=== PATIENT | male | born 1945 ===

== ENCOUNTER 2018-05-22 03:24 | Inpatient (IN) | payer MEDICARE, MEDICAID ==
[2018-05-22 03:24] VITALS: BMI 29.2
--- NOTE | 2018-05-22 05:16 | ED PDOC ---
HPI: SOB/CHF/COPD Time Seen by Provider: 05/22/18 03:59 Chief Complaint (Nursing): Shortness Of Breath Chief Complaint (Provider): Shortness of breath History Per: Patient, Informatics Pharmacist (Becky # [id number]) History/Exam Limitations: no limitations Onset/Duration Of Symptoms: Days Current Symptoms Are (Timing): Still Present Exacerbating Factor(s): Exertion Associated Symptoms: Ankle/Leg Swelling Additional History Per: Patient Additional Complaint(s): 72yo male, with history of hypertension, comes to ER reporting shortness of breath. Patient states shortness of breath is exacerbated if he walks distances. He also reports abdominal swelling as well as lower extremity swelling. He otherwise denies any fever, chills, chest pain, vomiting or diarrhea. No additional complaints. PMD: Dr. Perez Past Medical History Reviewed: Historical Data, Nursing Documentation, Vital Signs Vital Signs: Last Vital Signs Temp 97.8 F 05/22/18 03:38 Pulse 86 05/22/18 03:38 Resp 17 05/22/18 03:38 BP 213/93 H 05/22/18 03:38 Pulse Ox 98 05/22/18 03:38 - Medical History PMH: Arthritis, CAD, HTN, Hypercholesterolemia - Surgical History Surgical History: No Surg Hx - Family History Family History: States: No Known Family Hx - Living Arrangements Living Arrangements: With Family - Social History Current smoker - smoking cessation education provided: No Alcohol: None Drugs: Denies - Immunization History Hx Tetanus Toxoid Vaccination: Yes (11/05/2012) Hx Influenza Vaccination: No Hx Pneumococcal Vaccination: No - Home Medications Home Medications: Ambulatory Orders Medication Instructions Recorded Losartan/Hydrochlorothiazide 1 tab PO DAILY 02/27/13 [Losartan Potassium-Hydrochlorothiazide 12.5 M] Carvedilol [Coreg] 6.25 mg PO BID 08/16/15 RX: Diclofenac Sodium 75 mg PO BID 08/16/15 RX: traMADol [Ultram] 50 mg PO Q8 #20 tab 04/22/18 Apixaban [Eliquis] 5 mg PO DAILY 05/22/18 Zolpidem Tartrate [Ambien] 10 mg PO HS 05/22/18 - Allergies Allergies/Adverse Reactions: Allergies Allergy/AdvReac Type Severity Reaction Status Date / Time No Known Allergies Allergy Verified 05/22/18 03:39 Review of Systems ROS Statement: Except As Marked, All Systems Reviewed And Found Negative (per HPI) Constitutional: Negative for: Fever, Chills Cardiovascular: Positive for: Edema. Negative for: Chest Pain Respiratory: Positive for: Shortness of Breath, SOB with Exertion Gastrointestinal: Negative for: Nausea, Vomiting Physical Exam - Reviewed Nursing Documentation Reviewed: Yes Vital Signs Reviewed: Yes - Physical Exam Appears: Positive for: Non-toxic Head Exam: Positive for: ATRAUMATIC, NORMAL INSPECTION, NORMOCEPHALIC Skin: Positive for: Normal Color Eye Exam: Positive for: Normal appearance Neck: Positive for: Supple Cardiovascular/Chest: Positive for: Regular Rate, Rhythm Respiratory: Positive for: Normal Breath Sounds. Negative for: Crackles, Rales, Rhonchi, Wheezing, Respiratory Distress Gastrointestinal/Abdominal: Positive for: Soft, Distended. Negative for: Tenderness Extremity: Positive for: Normal ROM, Pedal Edema (1+ pitting pedal edema amita aterally) Neurologic/Psych: Positive for: Alert, Oriented. Negative for: Motor/Sensory Deficits - Laboratory Results Result Diagrams: 05/22/18 05:56 05/22/18 05:56 - ECG ECG: Positive for: Interpreted By Me, Viewed By Me ECG Rhythm: Positive for: Sinus Rhythm. Negative for: ST/T Changes Rate: 88 O2 Sat by Pulse Oximetry: 98 (RA) Pulse Ox Interpretation: Normal Medical Decision Making Medical Decision Making: Impression: 72yo male with shortness of breath, r/o CHF Plan: -- Lasix 20mg IVP -- Labs -- Chest x-ray -- Urinalysis 0630 Chest x-ray reviewed, patient with right middle lobe peribronchial thickening [place] [address]. Troponin level negative. Hemoglobin level noted to be low at 6.0; Shortness of breath could be due to symptomatic anemia Patient noted to have worsening renal failure as well. [address] Bedolla, covering for Dr. Perez, and he accepts patient for admission due to CHF and possible GI bleed. Patient admitted to telemetry. Per Dr. Bedolla, Dr. García to be consulted for GI and Dr. Flores for cardiology. Guiac stool test ordered. Lasix 40mg IVP ordered. Patient consents to blood transfusion; written consent obtained. Lab results and plan for admission discussed with patient, who expresses understanding and is agreeable. Scribe Attestation: Documented by Jannette Somers, acting as a scribe for Mikayla Casas MD. Provider Scribe Attestation: All medical record entries made by the Scribe were at my direction and personally dictated by me. I have reviewed the chart and agree that the record accurately reflects my personal performance of the history, physical exam, medical decision making, and the department course for this patient. I have also personally directed, reviewed, and agree with the discharge instructions and disposition. Disposition - Clinical Impression Clinical Impression: Renal failure, Symptomatic anemia - Patient ED Disposition Is Patient to be Admitted: Yes Counseled Patient/Family Regarding: Studies Performed, Diagnosis - Disposition Disposition Time: 06:55 Condition: FAIR
[2018-05-22 05:59] LABS: BASO # 0.1 K/uL (0.0-0.2); BASO % 0.9 % (0.0-2.0); EOS # 0.2 K/uL (0.0-0.7); LYMPH # 1.4 K/uL (1.0-4.3); LYMPH % 17.5 % (20.0-40.0); MEAN CELL VOLUME 90.7 fl (80.0-94.0); MEAN CORPUSCULAR HGB CONC 29.7 g/dL (33.0-37.0); MEAN PLATELET VOLUME 9.7 fl (7.2-11.7); MONO # 0.7 K/uL (0.0-0.8); MONO % 8.4 % (0.0-10.0); NEUT # 5.8 K/uL (1.8-7.0); NEUT % 71.2 % (50.0-75.0); NRBC % 0.1 % (0.0-0.0); RBC 2.24 Mil/uL (4.40-5.90); RED CELL DISTRIBUTION WIDTH 20.5 % (11.5-14.5); WHITE BLOOD COUNT 8.1 K/uL (4.8-10.8)
[2018-05-22 06:14] LABS: ALB/GLOB RATIO 1.2 (1.0-2.1); ALBUMIN 3.4 g/dL (3.5-5.0); CALCIUM 8.4 mg/dL (8.4-10.2)
[2018-05-22 06:26] LABS: TROPONIN I 0.03 ng/mL (0.00-0.120)
[2018-05-22 07:36] LABS: SQUAMOUS EPITHIAL < 1 /hpf (0-5); URINE BACTERIA RARE (<OCC); URINE BILIRUBIN NEGATIVE (NEGATIVE); URINE BLOOD NEGATIVE (NEGATIVE); URINE CLARITY CLEAR (Clear); URINE COLOR STRAW (YELLOW); URINE GLUCOSE (UA) NEG (NEGATIVE); URINE LEUKOCYTE ESTERASE NEG Leu/uL (Negative); URINE PROTEIN NEGATIVE (NEGATIVE); URINE UROBILINOGEN 0.2-1.0 mg/dL (0.2-1.0)
--- NOTE | 2018-05-22 07:59 | RAD ---
Date of service: 05/22/2018 HISTORY: chf COMPARISON: No prior. FINDINGS: LUNGS: No active pulmonary disease. PLEURA: No significant pleural effusion identified, no pneumothorax apparent. CARDIOVASCULAR: There is presence of aortic atherosclerotic calcification on x-ray. Mild cardiomegaly. Mild pulmonary venous congestion OSSEOUS STRUCTURES: Thoracic spondylosis. VISUALIZED UPPER ABDOMEN: Normal. OTHER FINDINGS: None. IMPRESSION: Mild cardiomegaly. Mild pulmonary venous congestion .
--- NOTE | 2018-05-22 19:19 | CP.PCM.CON ---
History of Present Illness - History of Present Illness History of Present Illness: I was asked to evaluate patient by Dr Stout Patient seen 05/22/18 1700 Patient is a 72 year old male with HTN, hypercholesterolemia who presents with weakness. Symptoms have occurred for the last few days and he has become increasingly more fatigued. He was found to be severely anemic. He denies chest pain. Of note the patient had a previous stress test in June revealing normal myocardial perfusion and normal left ventricular function. Review of Systems - Constitutional Constitutional: Fatigue, Weakness - EENT Eyes: absent: As Per HPI, Blind Spots, Blurred Vision, Change in Vision, Decreased Night Vision, Diplopia, Discharge, Dry Eye, Exophthalmos, Floaters, Irritation, Itchy Eyes, Loss of Peripheral Vision, Pain, Photophobia, Requires Corrective Lenses, Sees Flashes, Spots in Vision, Tunnel Vision, Other Visual Disturbances, Loss of Vision, Other Ears: absent: As Per HPI, Decreased Hearing, Ear Discharge, Ear Pain, Tinnitus, Abnormal Hearing, Disequilibrium, Dizziness, Other Nose/Mouth/Throat: absent: As Per HPI, Epistaxis, Nasal Congestion, Nasal Disc harge, Nasal Obstruction, Nasal Trauma, Nose Pain, Post Nasal Drip, Sinus Pain, Sinus Pressure, Bleeding Gums, Change in Voice, Dental Pain, Dry Mouth, Dysphagia, Halitosis, Hoarsness, Lip Swelling, Mouth Lesions, Mouth Pain, Odynophagia, Sore Throat, Throat Swelling, Tongue Swelling, Facial Pain, Neck Pain, Neck Mass, Other - Cardiovascular Cardiovascular: absent: As Per HPI, Acrocyanosis, Chest Pain, Chest Pain at Rest, Chest Pain with Activity, Claudication, Diaphoresis, Dyspnea, Dyspnea on Exertion, Edema, Irregular Heart Rhythm, Pain Radiating to Arm/Neck/Jaw, Leg Edema, Leg Ulcers, Lightheadedness, Orthopnea, Palpitations, Paroxysmal Nocturnal Dyspnea, Pedal Edema, Radiating Pain, Rapid Heart Rate, Slow Heart Rate, Syncope, Other - Respiratory Respiratory: absent: As Per HPI, Cough, Dyspnea, Hemoptysis, Dyspnea on Exertion, Wheezing, Snoring, Stridor, Pain on Inspiration, Chest Congestion, Excessive Mucous Production, Change in Mucous Color, Pain with Coughing, Other - Gastrointestinal Gastrointestinal: Change in Bowel Habits, Constipation - Genitourinary Genitourinary: Urinary Hesitance - Musculoskeletal Musculoskeletal: absent: As Per HPI, Abnormal Gait, Arthralgias, Atrophy, Back Pain, Deformity, Joint Swelling, Limited Range of Motion, Loss of Height, Muscle Cramps, Muscle Weakness, Myalgias, Neck Pain, Numbness, Radiating Pain into Limb, Stiffness, Tingling, Other - Integumentary Integumentary: absent: As Per HPI, Acne, Alopecia, Bleeding Lesions, Change in Hair, Change in Nails, Change in Pigmentation, Changing Lesions, Dry Skin, Erythema, Furuncle, Hirsutism, Lesions, New Lesions, Non-Healing Lesions, Photosensitivity, Pruritus, Rash, Skin Pain, Skin Ulcer, Sores, Striae, Swelling, Unusual Bruising, Wounds, Jaundice, Other - Neurological Neurological: absent: As Per HPI, Abnormal Gait, Abnormal Hearing, Abnormal Movements, Abnormal Speech, Behavioral Changes, Burning Sensations, Confusion, Convulsions, Disequilibrium, Dizziness, Numbness, Focal Weakness, Frequent Falls, Headaches, Lack of Coordination, Loss of Vision, Memory Loss, Paresthesias, Radicular Pain, Restless Legs, Sensory Deficit, Syncope, Tingling, Tremor, Vertigo, Weakness, Other Visual Disturbances, Other - Psychiatric Psychiatric: absent: As Per HPI, Abnormal Sleep Pattern, Anhedonia, Anxiety, Auditory Hallucinations, Behavioral Changes, Change in Appetite, Change in L ibido, Confusion, Depression, Difficulty Concentrating, Hallucinations, Homicidal Ideation, Hopelessness, Irritability, Memory Loss, Mood Swings, Panic Attacks, Paranoia, Suicidal Ideation, Visual Hallucinations, Tactile Hallucinations, Other - Endocrine Endocrine: absent: As Per HPI, Change in Body Appearance, Change in Libido, Cold Intolorance, Deepening of Voice, Excessive Sweating, Fatigue, Flushing, Heat Intolorance, Increase in Ring/Shoe/Hat Size, Palpitations, Polydipsia, Polyphagia, Polyuria, Other - Hematologic/Lymphatic Hematologic: absent: As Per HPI, Easy Bleeding, Easy Bruising, Lymphadenopathy, Other Past Patient History - Infectious Disease Hx of Infectious Diseases: None - Past Medical History & Family History Past Medical History?: Yes - Past Social History Smoking Status: Former Smoker - CARDIAC Hx Cardiac Disorders: Yes - HEMATOLOGICAL/ONCOLOGICAL Hx Blood Disorders: Yes Hx AIDS: No Hx Human Immunodeficiency Virus (HIV): No - MUSCULOSKELETAL/RHEUMATOLOGICAL Hx Musculoskeletal Disorders: Yes Hx Falls: No - PSYCHIATRIC Hx Substance Use: No - ANESTHESIA Hx Anesthesia: No Meds Allergies/Adverse Reactions: Allergies Allergy/AdvReac Type Severity Reaction Status Date / Time No Known Allergies Allergy Verified 05/22/18 03:39 - Medications Medications: Current Medications Amlodipine Besylate (Norvasc) 10 mg PO DAILY [facility] Last Admin: 05/22/18 14:01 Dose: 10 mg Carvedilol (Coreg) 12.5 mg PO Q12 [facility] Last Admin: 05/22/18 14:00 Dose: 12.5 mg Hydralazine HCl (Apresoline) 25 mg PO BID [facility] Last Admin: 05/22/18 16:33 Dose: 25 mg Physical Exam - Constitutional Appears: Non-toxic - Head Exam Head Exam: NORMAL INSPECTION - Eye Exam Eye Exam: Normal appearance - ENT Exam ENT Exam: Mucous Membranes Moist - Neck Exam Neck exam: Positive for: Full Rom - Respiratory Exam Respiratory Exam: NORMAL BREATHING PATTERN - Cardiovascular Exam Cardiovascular Exam: REGULAR RHYTHM - GI/Abdominal Exam GI & Abdominal Exam: Normal Bowel Sounds - Rectal Exam Rectal Exam: Deferred - Extremities Exam Extremities exam: Positive for: normal inspection. Negative for: pedal edema - Back Exam Back exam: NORMAL INSPECTION - Neurological Exam Neurological exam: Alert, Oriented x3 - Psychiatric Exam Psychiatric exam: Normal Affect - Skin Skin Exam: Normal Color Results - Vital Signs Recent Vital Signs: Last Vital Signs Temp 98.2 F 05/22/18 18:37 Pulse 74 05/22/18 18:37 Resp 18 05/22/18 18:37 BP 164/68 H 05/22/18 18:37 Pulse Ox 100 05/22/18 16:10 - Labs Result Diagrams: 05/22/18 05:56 05/22/18 05:56 Labs: Laboratory Results - last 24 hr 05/22/18 05/22/18 05/22/18 05:56 05:56 07:27 WBC 8.1 RBC 2.24 L Hgb 6.0 L* Hct 20.3 L MCV 90.7 MCH 27.0 MCHC 29.7 L RDW 20.5 H Plt Count 264 MPV 9.7 Neut % (Auto) 71.2 Lymph % (Auto) 17.5 L [place] % (Auto) 8.4 Eos % (Auto) 2.0 Baso % (Auto) 0.9 Neut # (Auto) 5.8 Lymph # (Auto) 1.4 [place] # (Auto) 0.7 Eos # (Auto) 0.2 Baso # (Auto) 0.1 Sodium 144 Potassium 4.2 Chloride 111 H Carbon Dioxide 22 Anion Gap 15 BUN 66 H Creatinine 3.3 H Est GFR ( Amer) 22 Est GFR (Non-Af Amer) 18 Random Glucose 102 Calcium 8.4 Total Bilirubin 0.5 AST 20 ALT 28 Alkaline Phosphatase 204 H Troponin I 0.0300 NT-Pro-B Natriuret Pep 04179 H Total Protein 6.4 Albumin 3.4 L Globulin 2.9 Albumin/Globulin Ratio 1.2 Urine Color Straw Urine Clarity Clear Urine pH 6.0 Ur Specific [place] [employer] 1.009 Urine Protein Negative Urine Glucose (UA) Neg Urine Ketones Negative Urine Blood Negative Urine Nitrate Negative Urine Bilirubin Negative Urine Urobilinogen 0.2-1.0 Ur Leukocyte Esterase Neg Urine RBC (Auto) < 1 Urine Microscopic WBC < 1 Ur Squamous Epith Cells < 1 Urine Bacteria Rare Stool Occult Blood Blood Type Blood Type Confirm Antibody Screen Crossmatch BBK History Checked 05/22/18 05/22/18 05/22/18 07:50 08:54 10:15 WBC RBC Hgb Hct MCV MCH MCHC RDW Plt Count MPV Neut % (Auto) Lymph % (Auto) [place] % (Auto) Eos % (Auto) Baso % (Auto) Neut # (Auto) Lymph # (Auto) [place] # (Auto) Eos # (Auto) Baso # (Auto) Sodium Potassium Chloride Carbon Dioxide Anion Gap BUN Creatinine Est GFR ( Amer) Est GFR (Non-Af Amer) Random Glucose Calcium Total Bilirubin AST ALT Alkaline Phosphatase Troponin I NT-Pro-B Natriuret Pep Total Protein Albumin Globulin Albumin/Globulin Ratio Urine Color Urine Clarity Urine pH Ur Specific [place] [employer] Urine Protein Urine Glucose (UA) Urine Ketones Urine Blood Urine Nitrate Urine Bilirubin Urine Urobilinogen Ur Leukocyte Esterase Urine RBC (Auto) Urine Microscopic WBC Ur Squamous Epith Cells Urine Bacteria Stool Occult Blood Positive H Blood Type A POSITIVE Blood Type Confirm A POSITIVE Antibody Screen Negative Crossmatch See Detail BBK History Checked No verified bt - EKG Data EKG Interpreted by: Myself EKG shows normal: Sinus rhythm Assessment & Plan (1) HTN (hypertension) Assessment and Plan: patient needs improved blood pressure control. can increase betblocker. will hold ARB/AGUSTIN inhibitor given renal insufficiency. Status: Acute
--- NOTE | 2018-05-22 22:39 | CP.PCM.HP ---
History of Present Illness - History of Present Illness History of Present Illness: Courtney david a 72 y/o male admitted for increasing SOB and pallor for the past few weeks. claims that he noted increasing SOb and leg edema 2 weeks ago. At about the same time he had noted frequent episodes of dark colored stools. He did not seek medical attention. Progressively he got worst hence the Er visit. At the Er he was noted to be in CHF with bilateral pitting leg edema, [place] [address] and CXr showing pulm congestion he was also noted to have a hGb of 6.0 BUN 66 nad creatinine of 3.3. has a hx of HTn and hyperlipidemia. recent stress test and ECH in jun 2017 showed a normal stress test and normal EF. Past Patient History - Infectious Disease Hx of Infectious Diseases: None - Past Medical History & Family History Past Medical History?: Yes - Past Social History Smoking Status: Former Smoker - CARDIAC Hx Cardiac Disorders: Yes - HEMATOLOGICAL/ONCOLOGICAL Hx Blood Disorders: Yes Hx AIDS: No Hx Human Immunodeficiency Virus (HIV): No - MUSCULOSKELETAL/RHEUMATOLOGICAL Hx Musculoskeletal Disorders: Yes Hx Falls: No - PSYCHIATRIC Hx Substance Use: No - ANESTHESIA Hx Anesthesia: No Meds Allergies/Adverse Reactions: Allergies Allergy/AdvReac Type Severity Reaction Status Date / Time No Known Allergies Allergy Verified 05/22/18 03:39 Results - Vital Signs Recent Vital Signs: Last Vital Signs Temp 98.4 F 05/22/18 22:25 Pulse 67 05/22/18 22:25 Resp 18 05/22/18 22:25 BP 165/73 H 05/22/18 22:25 Pulse Ox 99 05/22/18 19:57 - Labs Result Diagrams: 05/22/18 05:56 05/22/18 05:56 Labs: Laboratory Results - last 24 hr 05/22/18 05/22/18 05/22/18 05:56 05:56 07:27 WBC 8.1 RBC 2.24 L Hgb 6.0 L* Hct 20.3 L MCV 90.7 MCH 27.0 MCHC 29.7 L RDW 20.5 H Plt Count 264 MPV 9.7 Neut % (Auto) 71.2 Lymph % (Auto) 17.5 L [place] % (Auto) 8.4 Eos % (Auto) 2.0 Baso % (Auto) 0.9 Neut # (Auto) 5.8 Lymph # (Auto) 1.4 [place] # (Auto) 0.7 Eos # (Auto) 0.2 Baso # (Auto) 0.1 Sodium 144 Potassium 4.2 Chloride 111 H Carbon Dioxide 22 Anion Gap 15 BUN 66 H Creatinine 3.3 H Est GFR ( Amer) 22 Est GFR (Non-Af Amer) 18 Random Glucose 102 Calcium 8.4 Total Bilirubin 0.5 AST 20 ALT 28 Alkaline Phosphatase 204 H Troponin I 0.0300 NT-Pro-B Natriuret Pep 18311 H Total Protein 6.4 Albumin 3.4 L Globulin 2.9 Albumin/Globulin Ratio 1.2 Urine Color Straw Urine Clarity Clear Urine pH 6.0 Ur Specific [place] 1.009 Urine Protein Negative Urine Glucose (UA) Neg Urine Ketones Negative Urine Blood Negative Urine Nitrate Negative Urine Bilirubin Negative Urine Urobilinogen 0.2-1.0 Ur Leukocyte Esterase Neg Urine RBC (Auto) < 1 Urine Microscopic WBC < 1 Ur Squamous Epith Cells < 1 Urine Bacteria Rare Stool Occult Blood Blood Type Blood Type Confirm Antibody Screen Crossmatch BBK History Checked 05/22/18 05/22/18 05/22/18 07:50 08:54 10:15 WBC RBC Hgb Hct MCV MCH MCHC RDW Plt Count MPV Neut % (Auto) Lymph % (Auto) [place] % (Auto) Eos % (Auto) Baso % (Auto) Neut # (Auto) Lymph # (Auto) [place] # (Auto) Eos # (Auto) Baso # (Auto) Sodium Potassium Chloride Carbon Dioxide Anion Gap BUN Creatinine Est GFR ( Amer) Est GFR (Non-Af Amer) Random Glucose Calcium Total Bilirubin AST ALT Alkaline Phosphatase Troponin I NT-Pro-B Natriuret Pep Total Protein Albumin Globulin Albumin/Globulin Ratio Urine Color Urine Clarity Urine pH Ur Specific [place] Urine Protein Urine Glucose (UA) Urine Ketones Urine Blood Urine Nitrate Urine Bilirubin Urine Urobilinogen Ur Leukocyte Esterase Urine RBC (Auto) Urine Microscopic WBC Ur Squamous Epith Cells Urine Bacteria Stool Occult Blood Positive H Blood Type A POSITIVE Blood Type Confirm A POSITIVE Antibody Screen Negative Crossmatch See Detail BBK History Checked No verified bt
[2018-05-23 06:26] LABS: HEMOGLOBIN 8.3 g/dL (12.0-18.0); MEAN CELL VOLUME 90.3 fl (80.0-94.0); MEAN CORPUSCULAR HEMOGLOBIN 28.5 pg (27.0-31.0); MEAN CORPUSCULAR HGB CONC 31.5 g/dL (33.0-37.0); RBC 2.92 Mil/uL (4.40-5.90); RED CELL DISTRIBUTION WIDTH 18.5 % (11.5-14.5); WHITE BLOOD COUNT 9.1 K/uL (4.8-10.8)
[2018-05-23 06:34] LABS: CALCIUM 8.3 mg/dL (8.4-10.2)
--- NOTE | 2018-05-23 07:58 | CP.PCM.PN ---
Subjective - Date & Time of Evaluation Date of Evaluation: 05/23/18 Time of Evaluation: 07:57 - Subjective Subjective: no overnight events Objective - Vital Signs/Intake and Output Vital Signs (last 24 hours): Temp Pulse Resp BP Pulse Ox 97.9 F 83 18 181/74 H 100 05/23/18 04:54 05/23/18 06:00 05/23/18 04:54 05/23/18 06:00 05/23/18 04:54 Intake and Output: 05/23/18 05/23/18 06:59 18:59 Intake Total 355 Balance 355 - Medications Medications: Current Medications Amlodipine Besylate (Norvasc) 10 mg PO DAILY [facility] Last Admin: 05/22/18 14:01 Dose: 10 mg Carvedilol (Coreg) 12.5 mg PO Q12 [facility] Last Admin: 05/22/18 21:35 Dose: 12.5 mg Hydralazine HCl (Apresoline) 25 mg PO BID [facility] Last Admin: 05/22/18 16:33 Dose: 25 mg - Labs Labs: 05/23/18 04:05 05/23/18 04:05 - Head Exam Head Exam: NORMOCEPHALIC - Neck Exam Neck Exam: Normal Inspection - Respiratory Exam Respiratory Exam: Rales - Cardiovascular Exam Cardiovascular Exam: REGULAR RHYTHM - GI/Abdominal Exam GI & Abdominal Exam: Soft, Normal Bowel Sounds Assessment and Plan - Assessment and Plan (Free Text) Assessment: 72 yo male with anemia no bleeding needs contrast CT
--- NOTE | 2018-05-23 08:39 | CON ---
DATE: 05/22/2018 REFERRING PHYSICIAN: Thomas Bedolla MD REASON FOR CONSULTATION: ____. HISTORY OF PRESENT ILLNESS: This is a pleasant 72-year-old man with history of ____, CHF, hypercholesterolemia, and CAD who comes in with shortness of breath and overload. Denies coughing ____. The patient denies any bleeding. No nausea or vomiting. No chest pain. Currently lying in bed comfortable, in no abdominal distress. PAST MEDICAL HISTORY: As above. SURGICAL HISTORY: As above. MEDICATIONS: Have been reviewed. REVIEW OF SYSTEMS: All other systems have been reviewed and negative apart from the HPI. PHYSICAL EXAMINATION: VITAL SIGNS: Here in the hospital grossly unremarkable. GENERAL: A pleasant elderly female, lying in bed comfortably, in no apparent distress. HEENT: Head: Normocephalic and atraumatic. Eyes: Pupils are equally reactive to light bilaterally. No conjunctival pallor or icterus. NECK: Supple. Normal range of motion. No lymphadenopathy appreciated. LUNGS: Coarse breath sounds bilaterally. HEART: S1 and S2. Regular rate and rhythm. ABDOMEN: Soft. Nontender in the left lower and right lower quadrant; mostly in the right. No rebound. No guarding. EXTREMITIES: Pulses present bilaterally. SKIN: Warm, dry, some erythema bilaterally a little bit in the lower extremities. RECTAL: Deferred. LABORATORY DATA: All labs and relevant radiology have been reviewed. WBC 8.1, hemoglobin 6, hematocrit 28.3, and platelet count of 264. ProBNP is 10,000. Alkaline phosphatase 204. Creatinine 3.3. BUN is 66. ASSESSMENT AND PLAN: This is a 72-year-old man with anemia. Anemia looks acute on chronic. No clear evidence of bleeding at this point. Renal failure is also of concern as is the mild abdominal discomfort. Would recommend getting a CAT scan of the abdomen and pelvis with p.o. and intravenous contrast once Creatinine permits. Transfuse as indicated. Cardiac input appreciated. We will plan endoscopic followup as indicated electively. Thank you for the consult. Vernon García MD/ PhD cc: Thomas Bedolla MD [facility] # [id number] DOUG
--- NOTE | 2018-05-23 10:43 | CP.PCM.CON ---
History of Present Illness - History of Present Illness History of Present Illness: This patient who is 72 years of age male I was called to see him for renal consultation because of abnormal kidney function. Patient is not giving good history about his medical condition except that he presented with weakness and GI bleeding and his hemoglobin on admission 6.0 and he was found to have a high BUN and creatinine. I am not sure about his past medical history except of history of congestive heart failure patient also com planing of increasing leg swollen in addition not clear about the past history of any chronic kidney disease. Although he has history of hypertension Past medical history It is not clear at this point whether he has history of chronic kidney disease Review of Systems - Review of Systems Systems not reviewed;Unavailable: Respiratory Distress - Constitutional Constitutional: Anorexia - EENT Nose/Mouth/Throat: absent: Epistaxis - Cardiovascular Cardiovascular: Dyspnea, Edema. absent: Acrocyanosis, Chest Pain - Gastrointestinal Gastrointestinal: Hematochezia. absent: Abdominal Pain, Coffee Ground Emesis, Vomiting - Genitourinary Genitourinary: absent: Dysuria - Musculoskeletal Musculoskeletal: absent: Arthralgias, Numbness - Neurological Neurological: absent: Focal Weakness, Headaches - Psychiatric Psychiatric: absent: Anxiety, Confusion - Endocrine Endocrine: Fatigue - Hematologic/Lymphatic Hematologic: absent: Easy Bleeding Past Patient History - Infectious Disease Hx of Infectious Diseases: None - Past Medical History & Family History Past Medical History?: Yes - Past Social History Alcohol: None Drugs: Denies - CARDIAC Hx Hypercholesterolemia: Yes Hx Hypertension: Yes - HEMATOLOGICAL/ONCOLOGICAL Hx Blood Disorders: Yes Hx AIDS: No Hx Human Immunodeficiency Virus (HIV): No - MUSCULOSKELETAL/RHEUMATOLOGICAL Hx Arthritis: Yes - PSYCHIATRIC Hx Substance Use: No - ANESTHESIA Hx Anesthesia: No Meds Allergies/Adverse Reactions: Allergies Allergy/AdvReac Type Severity Reaction Status Date / Time No Known Allergies Allergy Verified 05/22/18 03:39 - Medications Medications: Current Medications Amlodipine Besylate (Norvasc) 10 mg PO DAILY [facility] Last Admin: 05/23/18 08:14 Dose: 10 mg Carvedilol (Coreg) 25 mg PO Q12 [facility] Last Admin: 05/23/18 09:36 Dose: 25 mg Hydralazine HCl (Apresoline) 50 mg PO TID [facility] Physical Exam - Constitutional Appears: No Acute Distress - Eye Exam Eye Exam: absent: Conjunctival injection - ENT Exam ENT Exam: Mucous Membranes Dry - Neck Exam Neck exam: Negative for: Lymphadenopathy - Respiratory Exam Respiratory Exam: Rales, Rhonchi, NORMAL BREATHING PATTERN - Cardiovascular Exam Cardiovascular Exam: JVD. absent: Gallop, Rubs - GI/Abdominal Exam GI & Abdominal Exam: Normal Bowel Sounds. absent: Guarding - Extremities Exam Extremities exam: Negative for: calf tenderness - Back Exam Back exam: absent: CVA tenderness (L), CVA tenderness (R) - Neurological Exam Neurological exam: Alert Results - Vital Signs Recent Vital Signs: Last Vital Signs Temp 98.1 F 05/23/18 09:18 Pulse 80 05/23/18 09:36 Resp 20 05/23/18 09:18 BP 187/79 H 05/23/18 09:36 Pulse Ox 100 05/23/18 09:18 - Labs Result Diagrams: 05/23/18 04:05 05/23/18 04:05 Labs: Laboratory Results - last 24 hr 05/22/18 05/22/18 05/23/18 07:50 10:15 04:05 WBC 9.1 RBC 2.92 L Hgb 8.3 L D Hct 26.4 L MCV 90.3 MCH 28.5 MCHC 31.5 L RDW 18.5 H Plt Count 252 Sodium Potassium Chloride Carbon Dioxide Anion Gap BUN Creatinine Est GFR ( Amer) Est GFR (Non-Af Amer) Random Glucose Calcium Phosphorus Magnesium Stool Occult Blood Positive H Blood Type A POSITIVE Antibody Screen Negative Crossmatch See Detail BBK History Checked No verified bt 05/23/18 04:05 WBC RBC Hgb Hct MCV MCH MCHC RDW Plt Count Sodium 142 Potassium 3.4 L Chloride 106 Carbon Dioxide 26 Anion Gap 13 BUN 67 H Creatinine 3.0 H Est GFR ( Amer) 25 Est GFR (Non-Af Amer) 21 Random Glucose 114 H Calcium 8.3 L Phosphorus 3.4 Magnesium 2.3 Stool Occult Blood Blood Type Antibody Screen Crossmatch BBK History Checked Assessment & Plan (1) HTN (hypertension) Status: Acute - Assessment and Plan (Free Text) Assessment: R/O acute kidney injury superimposed on chronic kidney disease perhaps his stage III GI bleeding Severe anemia with hemoglobin of 6 Digestive heart failure apparently as reported by the beef grinder Bilateral leg edema Hypoalbuminemia albumin 3.4 My recommendation Spot urine for sodium and creatinine and protein Serum phosphorus Serum PTH Suggest to give Lasix intravenously
--- NOTE | 2018-05-23 14:25 | US ---
Date of service: 05/23/2018 PROCEDURE: Ultrasound of the Kidneys HISTORY: [id number] COMPARISON: None available. TECHNIQUE: Sonogram of the kidneys. FINDINGS: RIGHT KIDNEY: Measures: 5.3 x 10.0 cm. Normal in size, contour and echogenicity. No stone, solid mass lesion or hydronephrosis visualized. LEFT KIDNEY: Measures: 4.3 x 9.2 cm. Normal in size, contour and echogenicity. No stone, solid mass lesion or hydronephrosis visualized. Several subcentimeter cysts identified. OTHER FINDINGS: Incompletely visualize ascites which appears to be low volume Well-circumscribed nodule right suprarenal location 1.6 x 1.7 cm likely an enlarged right adrenal gland. CT would confirm this finding and origin. IMPRESSION: No significant or acute findings to account for/ related to the clinical presentation. Right suprarenal mass.
[2018-05-23 18:25] LABS: CREATININE, RANDOM URINE 110.1 mg/dL
--- NOTE | 2018-05-23 19:39 | CARD ---
APPROVED REPORT Date of service: 05/23/2018 EXAM: Two-dimensional and M-mode echocardiogram with Doppler and color Doppler. Other Information Quality : GoodRhythm : Atrial Fibrillation INDICATION Congestive Heart Failure 2D DIMENSIONS IVSd1.08 (0.7-1.1cm)LVDd5.59 (3.9-5.9cm) LVOT Diameter1.87 (1.8-2.4cm)PWd1.06 (0.7-1.1cm) IVSs1.61 (0.8-1.2cm)LVDs3.70 (2.5-4.0cm) FS (%) 33.7 %PWs1.59 (0.8-1.2cm) M-Mode DIMENSIONS Left Atrium (MM)5.74 (2.5-4.0cm)IVSd1.44 (0.7-1.1cm) Aortic Root2.65 (2.2-3.7cm)LVDd5.32 (4.0-5.6cm) Aortic Cusp Exc.1.88 (1.5-2.0cm)PWd1.44 (0.7-1.1cm) IVSs1.47 cmFS (%) 30 % LVDs3.71 (2.0-3.8cm)PWs1.94 cm Aortic Valve AoV Peak Moznpgjy281.1cm/sAoV VTI37.8cmAO Peak GR.17mmHg LVOT Peak Rzfapqfk873.1cm/sLVOT VTI22.97cmAO Mean GR.8mmHg JOELLE (VMAX)0.54eu2WTH (VTI)0.89cm2 Mitral Valve E/A ratio0.0 TDI E/Lateral E'0.0E/Medial E'0.0 Tricuspid Valve TR Peak [id number]/sRAP [id number] Peak Gr.38mmHg [id number] LEFT VENTRICLE The left ventricle is normal size. There is normal left ventricular wall thickness. The left ventricular systolic function is normal. The estimated ejection fraction is 55-60% No regional wall motion abnormalities noted.. The left ventricular diastolic function cannot be assessed due to underlying atrial fibrillation. No left ventricle thrombus noted on this study. There is no ventricular septal defect visualized. There is no left ventricular aneurysm. There is no mass noted in the left ventricle. RIGHT VENTRICLE The right ventricle is normal size. There is normal right ventricular wall thickness. The right ventricular systolic function is normal. ATRIA The left atrium is moderate to severely dilated. The right atrium size is normal. The interatrial septum is intact with no evidence for an atrial septal defect. AORTIC VALVE The aortic valve is normal in structure. Mild to moderate aortic regurgitation is present. There is no aortic valvular stenosis. There is no aortic valvular vegetation. MITRAL VALVE The mitral valve is normal in structure. There is no evidence of mitral valve prolapse. There is no mitral valve stenosis. There is moderate to severe mitral valve regurgitation noted. TRICUSPID VALVE The tricuspid valve is normal in structure. There is moderate to severe tricuspid valve regurgitation noted. RVSP is calculated at 51 mm Hg. There is no tricuspid valve prolapse or vegetation. There is no tricuspid valve stenosis. PULMONIC VALVE The pulmonary valve is normal in structure. There is mild pulmonic valvular regurgitation. There is no pulmonic valvular stenosis. GREAT VESSELS The aortic root is normal in size. The ascending aorta is normal in size. The pulmonary artery is normal. The IVC is dilated in size and collapses <50% with inspiration. PERICARDIAL EFFUSION There is no pericardial effusion. There is no pleural effusion. <Conclusion> The estimated ejection fraction is 55-60% The left ventricular diastolic function cannot be assessed due to underlying atrial fibrillation. The left atrium is moderate to severely dilated. Mild to moderate aortic regurgitation is present. There is moderate to severe mitral valve regurgitation noted. There is moderate to severe tricuspid valve regurgitation noted. RVSP is calculated at 51 mm Hg. The IVC is dilated in size and collapses <50% with inspiration.
--- NOTE | 2018-05-24 08:55 | CP.PCM.PCO ---
Assessment/Plan - Assessment and Plan (Free Text) Assessment: Patient seen and examined today. Denies chest pain, shortness of breath, still with leg edema. Vss, blood pressure better controlled. Echo reviewed, discussed with Dr Flores medical management at this time is recommended. Eliquis discontinued due to GI bleed. Repeat labs today
[2018-05-24 09:02] LABS: HEMOGLOBIN 7.9 g/dL (12.0-18.0); MEAN CELL VOLUME 90.5 fl (80.0-94.0); RBC 2.83 Mil/uL (4.40-5.90); WHITE BLOOD COUNT 7.6 K/uL (4.8-10.8)
[2018-05-24 09:26] LABS: CALCIUM 8.5 mg/dL (8.4-10.2)
[2018-05-24] MEDS ORDERED: Potassium Chloride 20 mEq ER Tab PO ONE (09:34)
--- NOTE | 2018-05-24 10:08 | CP.PCM.PN ---
Subjective - Date & Time of Evaluation Date of Evaluation: 05/24/18 Time of Evaluation: 10:07 - Subjective Subjective: no overnight events Objective - Vital Signs/Intake and Output Vital Signs (last 24 hours): Temp Pulse Resp BP Pulse Ox 98.1 F 70 18 176/81 H 100 05/24/18 07:55 05/24/18 08:08 05/24/18 07:55 05/24/18 08:08 05/24/18 07:55 - Medications Medications: Current Medications Amlodipine Besylate (Norvasc) 10 mg PO DAILY [facility] Last Admin: 05/24/18 08:08 Dose: 10 mg Carvedilol (Coreg) 25 mg PO Q12 [facility] Last Admin: 05/24/18 08:07 Dose: 25 mg Hydralazine HCl (Apresoline) 50 mg PO TID [facility] Last Admin: 05/24/18 08:07 Dose: 50 mg - Labs Labs: 05/24/18 08:47 05/24/18 08:47 - Head Exam Head Exam: NORMOCEPHALIC - Neck Exam Neck Exam: Normal Inspection - Respiratory Exam Respiratory Exam: Clear to Ausculation Bilateral, NORMAL BREATHING PATTERN - Cardiovascular Exam Cardiovascular Exam: REGULAR RHYTHM - GI/Abdominal Exam GI & Abdominal Exam: Soft, Normal Bowel Sounds Assessment and Plan - Assessment and Plan (Free Text) Assessment: 72 yo male with anemia no bleeding hgb stable elective, outpatient egd-colonoscopy once medically cleared
--- NOTE | 2018-05-24 12:46 | CP.PCM.PN ---
Subjective - Date & Time of Evaluation Date of Evaluation: 05/24/18 Time of Evaluation: 12:46 - Subjective Subjective: Patient feeling much better less shortness of breath. Sitting out of bed in the chair Vital signs noted to be stable Objective - Vital Signs/Intake and Output Vital Signs (last 24 hours): Temp Pulse Resp BP Pulse Ox 97.7 F 58 L 18 123/59 L 100 05/24/18 12:00 05/24/18 12:00 05/24/18 12:00 05/24/18 12:00 05/24/18 12:00 - Medications Medications: Current Medications Amlodipine Besylate (Norvasc) 10 mg PO DAILY [facility] Last Admin: 05/24/18 08:08 Dose: 10 mg Carvedilol (Coreg) 25 mg PO Q12 [facility] Last Admin: 05/24/18 08:07 Dose: 25 mg Furosemide (Lasix) 40 mg IV ONCE ONE Stop: 05/25/18 11:21 Furosemide (Lasix) 40 mg PO DAILY [facility] Hydralazine HCl (Apresoline) 50 mg PO TID [facility] Last Admin: 05/24/18 12:00 Dose: 50 mg - Labs Labs: 05/24/18 08:47 05/24/18 08:47 - Constitutional Appears: No Acute Distress - Eye Exam Eye Exam: Conjunctival injection - ENT Exam ENT Exam: Mucous Membranes Moist - Neck Exam Neck Exam: absent: Lymphadenopathy - Respiratory Exam Respiratory Exam: Rhonchi, NORMAL BREATHING PATTERN. absent: Chest Wall Tenderness - Cardiovascular Exam Cardiovascular Exam: absent: Gallop, JVD, Rubs - GI/Abdominal Exam GI & Abdominal Exam: Soft, Normal Bowel Sounds - Extremities Exam Extremities Exam: absent: Calf Tenderness - Back Exam Back Exam: absent: CVA tenderness (L), CVA tenderness (R) - Neurological Exam Neurological Exam: Alert - Psychiatric Exam Psychiatric exam: Normal Affect - Skin Skin Exam: absent: Cyanosis Assessment and Plan (1) HTN (hypertension) Assessment & Plan: acute kidney injury superimposed on chronic kidney disease perhaps his stage III GI bleeding Severe anemia with hemoglobin of 6 cogestive heart failure apparently as reported by the fitness coach Bilateral leg edema Hypoalbuminemia albumin 3.4 Recommendation Patient need diuretics to give Lasix 40 mg p.o. perhaps for the next 2-3 days and monitor electrolytes monitor potassium as well Patient have hypokalemia this morning and he was given potassium chloride 40 mEq repeat tomorrow Kidney function improving serum creatinine coming down slightly GI follow-up as noted with a GI bleeding and discontinuation of the Eliquis Status: Acute
[2018-05-24 15:28] LABS: SQUAMOUS EPITHIAL < 1 /hpf (0-5); URINE BACTERIA OCC (<OCC); URINE BILIRUBIN NEGATIVE (NEGATIVE); URINE BLOOD NEGATIVE (NEGATIVE); URINE CLARITY SLIGHTY-CLOUDY (Clear); URINE COLOR YELLOW (YELLOW); URINE GLUCOSE (UA) NEG (NEGATIVE); URINE LEUKOCYTE ESTERASE NEG Leu/uL (Negative); URINE PROTEIN NEGATIVE (NEGATIVE)
[2018-05-24] MEDS ORDERED: DiphenhydrAMINE 50 mg/ml Inj IVP ONE (18:15)
[2018-05-25 07:36] LABS: CALCIUM 8.8 mg/dL (8.4-10.2)
--- NOTE | 2018-05-25 11:46 | CP.PCM.PN ---
Subjective - Date & Time of Evaluation Date of Evaluation: 05/25/18 Time of Evaluation: 10:45 - Subjective Subjective: patient feels well. no chest pain. s/p transfusion Objective - Vital Signs/Intake and Output Vital Signs (last 24 hours): Temp Pulse Resp BP Pulse Ox 97.5 F L 93 H 20 164/70 H 96 05/25/18 08:14 05/25/18 08:24 05/25/18 08:14 05/25/18 08:24 05/25/18 08:14 Intake and Output: 05/25/18 05/25/18 06:59 18:59 Intake Total 325 Balance 325 - Medications Medications: Current Medications Acetaminophen (Tylenol 325mg Tab) 650 mg PO Q4 PRN PRN Reason: Fever >100.4 F Amlodipine Besylate (Norvasc) 10 mg PO DAILY [facility] Last Admin: 05/25/18 08:24 Dose: 10 mg Carvedilol (Coreg) 25 mg PO Q12 [facility] Last Admin: 05/25/18 08:24 Dose: 25 mg Furosemide (Lasix) 40 mg PO DAILY [facility] Last Admin: 05/25/18 08:23 Dose: 40 mg Hydralazine HCl (Apresoline) 50 mg PO TID [facility] Last Admin: 05/25/18 08:23 Dose: 50 mg - Labs Labs: 05/24/18 08:47 05/25/18 05:30 - Constitutional Appears: Non-toxic - Head Exam Head Exam: NORMAL INSPECTION - Eye Exam Eye Exam: Normal appearance - ENT Exam ENT Exam: Mucous Membranes Moist - Neck Exam Neck Exam: Full ROM - Respiratory Exam Respiratory Exam: Decreased Breath Sounds, NORMAL BREATHING PATTERN - Cardiovascular Exam Cardiovascular Exam: REGULAR RHYTHM - GI/Abdominal Exam GI & Abdominal Exam: Normal Bowel Sounds - Rectal Exam Rectal Exam: Deferred - Extremities Exam Extremities Exam: absent: Pedal Edema - Back Exam Back Exam: NORMAL INSPECTION - Neurological Exam Neurological Exam: Alert - Psychiatric Exam Psychiatric exam: Normal Affect - Skin Skin Exam: Normal Color Assessment and Plan (1) HTN (hypertension) Assessment & Plan: will need better blood pressure control increase hydralazine. can d/c Coreg, start metroprolol ( LV function is normal) Status: Acute (2) Tricuspid regurgitation Assessment & Plan: recommend medical management Status: Acute
[2018-05-25 13:50] LABS: HEMOGLOBIN 9.2 g/dL (12.0-18.0); MEAN CELL VOLUME 88.4 fl (80.0-94.0); MEAN CORPUSCULAR HEMOGLOBIN 27.8 pg (27.0-31.0); MEAN CORPUSCULAR HGB CONC 31.4 g/dL (33.0-37.0); RBC 3.3 Mil/uL (4.40-5.90); WHITE BLOOD COUNT 5.8 K/uL (4.8-10.8)
--- NOTE | 2018-05-25 13:52 | CP.PCM.PN ---
Subjective - Date & Time of Evaluation Date of Evaluation: 05/25/18 Time of Evaluation: 13:49 - Subjective Subjective: RENAL seen and examined no complaints o: vs as below gen: nad sclera: anicteric op: clear neck: Supple no thyromegaly cv: +S1+s2 no rub lungs: cta abd: soft nt/nd no organomegaly ext: 1+ edema neuro: A+ox3 no focal defecit psych: nml affect skin no rash imp: CKD 4/ Anemia/ GIB/ Hypertensive kidney disease/ plan: renal function stable will start procrit bp stable f/u gi Objective - Vital Signs/Intake and Output Vital Signs (last 24 hours): Temp Pulse Resp BP Pulse Ox 98.1 F 64 20 110/56 L 100 05/25/18 12:34 05/25/18 13:27 05/25/18 12:34 05/25/18 13:27 05/25/18 12:34 Intake and Output: 05/25/18 05/25/18 06:59 18:59 Intake Total 325 Balance 325 - Medications Medications: Current Medications Acetaminophen (Tylenol 325mg Tab) 650 mg PO Q4 PRN PRN Reason: Fever >100.4 F Amlodipine Besylate (Norvasc) 10 mg PO DAILY [facility] Last Admin: 05/25/18 08:24 Dose: 10 mg Furosemide (Lasix) 40 mg PO DAILY [facility] Last Admin: 05/25/18 08:23 Dose: 40 mg Hydralazine HCl (Apresoline) 50 mg PO TID [facility] Last Admin: 05/25/18 13:27 Dose: 50 mg Metoprolol Tartrate (Lopressor) 50 mg PO Q12 [facility] Last Admin: 05/25/18 12:30 Dose: Not Given - Labs Labs: 05/24/18 08:47 05/25/18 05:30
[2018-05-25] MEDS ORDERED: DiphenhydrAMINE 50 mg/ml Inj IVP ONE (16:00)
--- NOTE | 2018-05-26 11:44 | CP.PCM.PN ---
Subjective - Date & Time of Evaluation Date of Evaluation: 05/26/18 Time of Evaluation: 11:30 - Subjective Subjective: patient has no current dyspnea. He denies chest pain Objective - Vital Signs/Intake and Output Vital Signs (last 24 hours): Temp Pulse Resp BP Pulse Ox 97.6 F 76 20 148/63 99 05/26/18 08:31 05/26/18 09:10 05/26/18 08:31 05/26/18 09:10 05/26/18 08:31 Intake and Output: 05/26/18 05/26/18 06:59 18:59 Intake Total 325 Balance 325 - Medications Medications: Current Medications Acetaminophen (Tylenol 325mg Tab) 650 mg PO Q4 PRN PRN Reason: Fever >100.4 F Amlodipine Besylate (Norvasc) 10 mg PO DAILY [facility] Last Admin: 05/26/18 09:09 Dose: 10 mg Epoetin Tommie (Procrit) 4,000 unit SC MWF [facility] Furosemide (Lasix) 40 mg IVP BID [facility] Last Admin: 05/26/18 09:10 Dose: 40 mg Hydralazine HCl (Apresoline) 50 mg PO TID [facility] Last Admin: 05/26/18 09:09 Dose: 50 mg Metoprolol Tartrate (Lopressor) 50 mg PO Q12 [facility] Last Admin: 05/26/18 09:10 Dose: 50 mg - Labs Labs: 05/25/18 13:38 05/25/18 05:30 - Constitutional Appears: Non-toxic - Head Exam Head Exam: NORMAL INSPECTION - Eye Exam Eye Exam: Normal appearance - ENT Exam ENT Exam: Mucous Membranes Moist - Neck Exam Neck Exam: Full ROM - Respiratory Exam Respiratory Exam: NORMAL BREATHING PATTERN - Cardiovascular Exam Cardiovascular Exam: REGULAR RHYTHM - GI/Abdominal Exam GI & Abdominal Exam: Normal Bowel Sounds - Rectal Exam Rectal Exam: Deferred - Extremities Exam Extremities Exam: absent: Pedal Edema - Back Exam Back Exam: NORMAL INSPECTION - Neurological Exam Neurological Exam: Alert - Psychiatric Exam Psychiatric exam: Normal Affect - Skin Skin Exam: Normal Color Assessment and Plan (1) HTN (hypertension) Assessment & Plan: blood pressure is improving. Not on AGUSTIN or ARB due to creatinine Status: Acute (2) Tricuspid regurgitation Assessment & Plan: stable. medical therapy and blood pressure control Status: Acute
--- NOTE | 2018-05-26 18:11 | CP.PCM.PN ---
Subjective - Date & Time of Evaluation Date of Evaluation: 05/26/18 Time of Evaluation: 18:10 - Subjective Subjective: no overnight events Objective - Vital Signs/Intake and Output Vital Signs (last 24 hours): Temp Pulse Resp BP Pulse Ox 98.3 F 60 18 132/63 100 05/26/18 15:46 05/26/18 16:40 05/26/18 15:46 05/26/18 16:40 05/26/18 15:46 Intake and Output: 05/26/18 05/26/18 06:59 18:59 Intake Total 325 Balance 325 - Medications Medications: Current Medications Acetaminophen (Tylenol 325mg Tab) 650 mg PO Q4 PRN PRN Reason: Fever >100.4 F Epoetin Tommie (Procrit) 4,000 unit SC MWF [facility] Furosemide (Lasix) 40 mg PO BID [facility] Last Admin: 05/26/18 16:40 Dose: 40 mg Hydralazine HCl (Apresoline) 50 mg PO TID [facility] Last Admin: 05/26/18 16:40 Dose: 50 mg Losartan Potassium (Cozaar) 100 mg PO DAILY [facility] Metoprolol Tartrate (Lopressor) 50 mg PO Q12 [facility] Last Admin: 05/26/18 09:10 Dose: 50 mg - Labs Labs: 05/25/18 13:38 05/25/18 05:30 - Head Exam Head Exam: NORMOCEPHALIC - Respiratory Exam Respiratory Exam: Clear to Ausculation Bilateral, NORMAL BREATHING PATTERN - Cardiovascular Exam Cardiovascular Exam: REGULAR RHYTHM - GI/Abdominal Exam GI & Abdominal Exam: Soft, Normal Bowel Sounds Assessment and Plan - Assessment and Plan (Free Text) Assessment: 72 yo male with anemia dc planning outpatient egd-colon
--- NOTE | 2018-05-26 22:27 | CP.PCM.PN ---
Subjective - Date & Time of Evaluation Date of Evaluation: 05/23/18 Time of Evaluation: 12:00 - Subjective Subjective: Patient had slight increase in HGb after 2 units of BT. Has no chest pain but still with SOB Nopted bilateral leg edema Objective - Vital Signs/Intake and Output Vital Signs (last 24 hours): Temp Pulse Resp BP Pulse Ox 97.3 F L 58 L 18 128/53 L 97 05/26/18 20:16 05/26/18 21:32 05/26/18 20:16 05/26/18 21:32 05/26/18 20:16 - Medications Medications: Current Medications Acetaminophen (Tylenol 325mg Tab) 650 mg PO Q4 PRN PRN Reason: Fever >100.4 F Epoetin Tommie (Procrit) 4,000 unit SC MWF [facility] Furosemide (Lasix) 40 mg PO BID [facility] Last Admin: 05/26/18 16:40 Dose: 40 mg Hydralazine HCl (Apresoline) 50 mg PO TID [facility] Last Admin: 05/26/18 16:40 Dose: 50 mg Losartan Potassium (Cozaar) 100 mg PO DAILY [facility] Metoprolol Tartrate (Lopressor) 50 mg PO Q12 [facility] Last Admin: 05/26/18 21:32 Dose: Not Given - Labs Labs: 05/25/18 13:38 05/25/18 05:30
--- NOTE | 2018-05-26 22:29 | CP.PCM.PN ---
Subjective - Date & Time of Evaluation Date of Evaluation: 05/24/18 Time of Evaluation: 13:00 - Subjective Subjective: Patient has slight SOB Claims that he has dark colored stools for almost 2 months now. Still with leg edema Objective - Vital Signs/Intake and Output Vital Signs (last 24 hours): Temp Pulse Resp BP Pulse Ox 97.3 F L 58 L 18 128/53 L 97 05/26/18 20:16 05/26/18 21:32 05/26/18 20:16 05/26/18 21:32 05/26/18 20:16 - Medications Medications: Current Medications Acetaminophen (Tylenol 325mg Tab) 650 mg PO Q4 PRN PRN Reason: Fever >100.4 F Epoetin Tommie (Procrit) 4,000 unit SC F [facility] Furosemide (Lasix) 40 mg PO BID [facility] Last Admin: 05/26/18 16:40 Dose: 40 mg Hydralazine HCl (Apresoline) 50 mg PO TID [facility] Last Admin: 05/26/18 16:40 Dose: 50 mg Losartan Potassium (Cozaar) 100 mg PO DAILY [facility] Metoprolol Tartrate (Lopressor) 50 mg PO Q12 [facility] Last Admin: 05/26/18 21:32 Dose: Not Given - Labs Labs: 05/25/18 13:38 05/25/18 05:30
--- NOTE | 2018-05-26 22:31 | CP.PCM.PN ---
Subjective - Date & Time of Evaluation Date of Evaluation: 05/24/18 Time of Evaluation: 11:00 - Subjective Subjective: Patient has no SOB Still with leg edema No abd pain Noted drop in Hgb hence two more units of PRBC were ordered. Objective - Vital Signs/Intake and Output Vital Signs (last 24 hours): Temp Pulse Resp BP Pulse Ox 97.3 F L 58 L 18 128/53 L 97 05/26/18 20:16 05/26/18 21:32 05/26/18 20:16 05/26/18 21:32 05/26/18 20:16 - Medications Medications: Current Medications Acetaminophen (Tylenol 325mg Tab) 650 mg PO Q4 PRN PRN Reason: Fever >100.4 F Epoetin Tommie (Procrit) 4,000 unit SC MWF [facility] Furosemide (Lasix) 40 mg PO BID [facility] Last Admin: 05/26/18 16:40 Dose: 40 mg Hydralazine HCl (Apresoline) 50 mg PO TID [facility] Last Admin: 05/26/18 16:40 Dose: 50 mg Losartan Potassium (Cozaar) 100 mg PO DAILY [facility] Metoprolol Tartrate (Lopressor) 50 mg PO Q12 [facility] Last Admin: 05/26/18 21:32 Dose: Not Given - Labs Labs: 05/25/18 13:38 05/25/18 05:30
--- NOTE | 2018-05-26 22:38 | CP.PCM.PN ---
Subjective - Date & Time of Evaluation Date of Evaluation: 05/26/18 Time of Evaluation: 14:00 - Subjective Subjective: Patient remains stable Has no SOB Still with leg edema Hgb 9.2 Objective - Vital Signs/Intake and Output Vital Signs (last 24 hours): Temp Pulse Resp BP Pulse Ox 97.3 F L 58 L 18 128/53 L 97 05/26/18 20:16 05/26/18 21:32 05/26/18 20:16 05/26/18 21:32 05/26/18 20:16 - Medications Medications: Current Medications Acetaminophen (Tylenol 325mg Tab) 650 mg PO Q4 PRN PRN Reason: Fever >100.4 F Epoetin Tommie (Procrit) 4,000 unit SC MWF [facility] Furosemide (Lasix) 40 mg PO BID [facility] Last Admin: 05/26/18 16:40 Dose: 40 mg Hydralazine HCl (Apresoline) 50 mg PO TID [facility] Last Admin: 05/26/18 16:40 Dose: 50 mg Losartan Potassium (Cozaar) 100 mg PO DAILY [facility] Metoprolol Tartrate (Lopressor) 50 mg PO Q12 [facility] Last Admin: 05/26/18 21:32 Dose: Not Given - Labs Labs: 05/25/18 13:38 05/25/18 05:30
[2018-05-27 05:29] LABS: MEAN CELL VOLUME 88.8 fl (80.0-94.0); MEAN CORPUSCULAR HEMOGLOBIN 28.3 pg (27.0-31.0); MEAN CORPUSCULAR HGB CONC 31.9 g/dL (33.0-37.0); RBC 3.54 Mil/uL (4.40-5.90); RED CELL DISTRIBUTION WIDTH 19.5 % (11.5-14.5); WHITE BLOOD COUNT 9.1 K/uL (4.8-10.8)
[2018-05-27 05:47] LABS: CALCIUM 8.2 mg/dL (8.4-10.2)
[2018-05-27] MEDS ORDERED: Epoetin Alfa 4000 UNIT/ML Inj SC SCH (09:00)
--- NOTE | 2018-05-27 09:52 | PQF ---
PROVIDER RESPONSE TEXT: Chronic atrial fibrillation REVIEWER QUERY TEXT: Atrial Fibrillation Type Nursing shift assessment: EKG Rhythm: Atrial Fibrillation Atrial fibrillation is documented in the Medical Record. 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 Found to be severely anemic. Previous stress test in June revealing normal myocardial perfusion and normal LV function. Query created by: Sarah Romeo on 05/27/2018 6:55 AM Electronically signed by: Ford Folres MD 05/27/2018 9:48 AM
--- NOTE | 2018-05-27 09:52 | PQF ---
PROVIDER RESPONSE TEXT: Diastolic heart failure REVIEWER QUERY TEXT: Heart Failure Acuity and Type Congestive Heart Failure is documented in the Medical Record. Please document the type and acuity (in cludes probable or suspected) Such as: Type: -- Combined systolic and diastolic (heart failure with reduced ejection fraction and diastolic) dysfu nction -- Diastolic (HFpEF) -- Systolic (HFrEF) -- Left heart failure -- Right heart failure -- Right heart failure due to left heart failure -- High output failure -- End stage heart failure -- Other, please specify Acuity: -- Acute -- Chronic -- Acute on chronic -- Other, please specify The patient's Clinical Indicators include: pro BNP of more than [address]12[address] and CXR showing pulm congestion . Recent stress test and ECH in jun 2017 showed a normal stress test and normal EF. Cardiology consult: HTN. Can increase Beta Monse. Hold ARB/ACEI given renal insufficiency ER: IV Lasix Medication: Coreg, PRN Lasix IV Query created by: Sarah Romeo on 05/27/2018 6:54 AM Electronically signed by: Ford Flores MD 05/27/2018 9:48 AM
--- NOTE | 2018-05-27 12:50 | CP.PCM.PN ---
Subjective - Date & Time of Evaluation Date of Evaluation: 05/27/18 Time of Evaluation: 12:47 - Subjective Subjective: RENAL seen and examined no complaints o: vs as below gen: nad sclera: anicteric op: clear neck: Supple no thyromegaly cv: +S1+s2 no rub lungs: cta abd: soft nt/nd no organomegaly ext: trace edema neuro: A+ox3 no focal defecit psych: nml affect skin no rash imp: ARF/ CKD 4/ Anemia/ GIB/ Hypertensive kidney disease/ suprarenal mass plan: cr increased to 4 today. I discontinued his ARB today. bp control w/ his other medications f/u gi ? suprarenal mass- will need CT when stable of abd/pelvis to better evaluate Objective - Vital Signs/Intake and Output Vital Signs (last 24 hours): Temp Pulse Resp BP Pulse Ox 97.6 F 54 L 18 125/68 100 05/27/18 11:48 05/27/18 11:48 05/27/18 11:48 05/27/18 11:48 05/27/18 11:48 - Medications Medications: Current Medications Acetaminophen (Tylenol 325mg Tab) 650 mg PO Q4 PRN PRN Reason: Fever >100.4 F Epoetin Tommie (Procrit) 4,000 unit SC MWF [facility] Last Admin: 05/27/18 08:42 Dose: 4,000 unit Furosemide (Lasix) 40 mg PO BID [facility] Last Admin: 05/27/18 08:41 Dose: 40 mg Hydralazine HCl (Apresoline) 50 mg PO TID [facility] Last Admin: 05/27/18 08:41 Dose: 50 mg Metoprolol Tartrate (Lopressor) 50 mg PO Q12 [facility] Last Admin: 05/27/18 08:44 Dose: 50 mg - Labs Labs: 05/27/18 04:25 05/27/18 04:25
[2018-05-27 16:27] VITALS: BP 144/70; PULSE 65; RESP 17; TEMP 97.7; O2SAT 99
--- NOTE | 2018-05-29 14:11 | PQF ---
PROVIDER RESPONSE TEXT: Anemia multifactorial, due to chronic disease and due to chronic blood loss. REVIEWER QUERY TEXT: Anemia Type Anemia is documented in the Medical Record. Please specify the cause (includes suspected or probable cause) Such as: -- Due to acute blood loss -- Due to chronic blood loss -- Due to iron deficiency -- Due to chronic disease please specify the disease -- Other, please specify The patient's Clinical Indicators include: Rx: Transfusion of PRBC and monitoring of CBC. Query created by: Sarah Romeo on 05/24/2018 8:48 AM Electronically signed by: Thomas Bedolla MD 05/29/2018 1:59 PM
--- NOTE | 2018-05-29 14:13 | PQF ---
PROVIDER RESPONSE TEXT: GI bleed cannot be ruled out. Unable to do GI workup due to acute CHF. For outpatient workup. REVIEWER QUERY TEXT: Conflicting Documentation Clarification Documentation by psychologist educational with an additional diagnosis of GI Bleeding. GI: Anemia, no bleeding noted . For outpatient EGD-Colon. Stool occult blood +, Hgb 6.0 on admission. Treated with PRBC Please clarify if GI Bleed is possibly ruled in or ruled out. A single mention or documentation of multiple diagnoses for the same clinical presentation appears in the record. Please clarify the diagnosis/diagnoses. Please also document if the condition is: -- Confirmed and current -- Confirmed, treated and resolved -- Ruled out -- Other, please specify The patient's Clinical Indicators include: Documentation by psychologist educational with an additional diagnosis of GI Bleeding. GI: Anemia, no bleeding noted . For outpatient EGD-Colon. Stool occult blood +, Hgb 6.0 on admission. Treated with PRBC Query created by: Sarah Romeo on 05/27/2018 6:58 AM Electronically signed by: Thomas Bedolla MD 05/29/2018 1:59 PM
== END 2018-05-27 16:50 | disposition home or self-care (01) | DRG 291 ==
LOC: H.ER 03:24 → H.ERHOLD 06:55 → H.TEL 13:20
PROVIDERS: ADMIT Family Medicine; ATTEND Family Medicine
DX: I13.0 Hypertensive heart and chronic kidney disease with heart failure and stage 1 through stage 4 chronic kidney disease, or unspecified chronic kidney disease (principal); I50.31 Acute diastolic (congestive) heart failure; K92.2 Gastrointestinal hemorrhage, unspecified; N17.9 Acute kidney failure, unspecified; N18.3 Chronic kidney disease, stage 3 (moderate); I48.2 Chronic atrial fibrillation; D63.8 Anemia in other chronic diseases classified elsewhere; D50.0 Iron deficiency anemia secondary to blood loss (chronic); E78.00 Pure hypercholesterolemia, unspecified; E78.5 Hyperlipidemia, unspecified; I07.1 Rheumatic tricuspid insufficiency; I25.10 Atherosclerotic heart disease of native coronary artery without angina pectoris; Z87.891 Personal history of nicotine dependence

== ENCOUNTER 2018-06-24 09:01 | Inpatient (IN) | payer MEDICARE, MEDICAID ==
[2018-06-24 09:04] VITALS: BMI 31.0
--- NOTE | 2018-06-24 09:45 | ED PDOC ---
Upper Extremity Pain/Injury Time Seen by Provider: 06/24/18 09:08 Chief Complaint (Nursing): Upper Extremity Problem/Injury Chief Complaint (Provider): Upper Extremity Problem/Injury History Per: Patient, Family History/Exam Limitations: no limitations Current Symptoms Are (Timing): Still Present Additional Complaint(s): 72 year old male with a past medical history of ESRD, HTN and arthritis, who presents to the emergency department with family and is complaining of pain and swelling to the left arm from hand to elbow. Patient states that he also has swelling to both legs and his testicles. Family states that he is currently on multiple medication to help him urinate but that he is not on dialysis. PMD: no provider Past Medical History Reviewed: Historical Data, Nursing Documentation, Vital Signs Vital Signs: Last Vital Signs Temp 97.8 F 06/24/18 09:04 Pulse 84 06/24/18 09:04 Resp 17 06/24/18 09:04 BP 155/67 H 06/24/18 09:04 Pulse Ox 98 06/24/18 09:07 - Medical History PMH: Arthritis, CAD, HTN, Hypercholesterolemia, End Stage Renal Disease Denies: HIV - Surgical History Surgical History: No Surg Hx - Family History Family History: States: Unknown Family Hx - Immunization History Hx Tetanus Toxoid Vaccination: Yes (11/05/2012) Hx Influenza Vaccination: No Hx Pneumococcal Vaccination: No - Home Medications Home Medications: Ambulatory Orders Medication Instructions Recorded Zolpidem Tartrate [Ambien] 10 mg PO HS 05/22/18 Metoprolol Tartrate 25 mg PO Q12 #60 tablet 05/27/18 Atorvastatin [Lipitor] 10 mg PO HS 06/24/18 Ergocalciferol (Vitamin D2) 50,000 unit PO QWK 06/24/18 [Vitamin D2] Ferrous Sulfate [Feosol] 324 mg PO Q8 06/24/18 Furosemide [Lasix] 80 mg PO BID 06/24/18 Tamsulosin [Flomax] 0.4 mg PO DAILY 06/24/18 Thiamine [Vitamin B1 Tab] 100 mg PO DAILY 06/24/18 Vitamin B Complex/Vit C/Folic 1 tab PO DAILY 06/24/18 [Nephro-Wilma] amLODIPine [Norvasc] 10 mg PO DAILY 06/24/18 hydrALAZINE [Apresoline] 50 mg PO Q8 06/24/18 metOLazone [Zaroxolyn] 5 mg PO BID 06/24/18 - Allergies Allergies/Adverse Reactions: Allergies Allergy/AdvReac Type Severity Reaction Status Date / Time No Known Allergies Allergy Verified 05/22/18 03:39 Review of Systems ROS Statement: Except As Marked, All Systems Reviewed And Found Negative Genitourinary Male: Positive for: Other (testicular swelling) Musculoskeletal: Positive for: Arm Pain (pain and swelling to left arm from hand to elbow), Other (leg swelling bilaterally) Physical Exam - Reviewed Nursing Documentation Reviewed: Yes Vital Signs Reviewed: Yes - Physical Exam Appears: Positive for: In Acute Distress (painful distress) Head Exam: Positive for: ATRAUMATIC, NORMOCEPHALIC Skin: Positive for: Normal Color, Warm, Dry Eye Exam: Positive for: Normal appearance, EOMI, PERRL ENT: Positive for: Other (dry mucous membranes ) Cardiovascular/Chest: Positive for: Regular Rate, Rhythm. Negative for: Murmur Respiratory: Positive for: Normal Breath Sounds. Negative for: Respiratory Distress Male Genital Exam: Positive for: other (edema to the scrotum and penis) Extremity: Positive for: Pedal Edema (3+ pitting edmea to bilateral lower extrem ities), Swelling (non pitting edema to left hand to left elbow) Neurologic/Psych: Positive for: Alert, Oriented - Laboratory Results Result Diagrams: 06/27/18 05:45 06/27/18 05:45 - ECG O2 Sat by Pulse Oximetry: 98 (RA) Pulse Ox Interpretation: Normal Medical Decision Making Medical Decision Makin:42 Impression: Fluid overload, CHF, DVT, ESRD Plan: --Duplex upper extremity vein US --Chest xray --Type and screen --ABO/RH type --EKG --CMP --Pro BNP --ED urine dipstick --CBC with differential --PTT --PT --Morphine --Urinalysis 11:12 US FINDINGS: Normal flow, compressibility and respiratory phasicity was observed in the the left upper extremity deep veins. IMPRESSION: No evidence of deep venous thrombosis. Soft tissue swelling seen in the left upper extremity. 12:30 Chest xray FINDINGS: LUNGS: Mild pulmonary vascular congestion PLEURA: No significant pleural effusion identified, no pneumothorax apparent. CARDIOVASCULAR: No aortic atherosclerotic calcification present. Normal cardiac size. No pulmonary vascular congestion. OSSEOUS STRUCTURES: No significant abnormalities. VISUALIZED UPPER ABDOMEN: Normal. OTHER FINDINGS: None. IMPRESSION: [id number] pulmonary vascular congestion. Scribe Attestation: Documented by Ulysses Anna, acting as a scribe for Juana Webber MD. Provider Scribe Attestation: All medical record entries made by the Scribe were at my direction and pe rsonally dictated by me. I have reviewed the chart and agree that the record accurately reflects my personal performance of the history, physical exam, medical decision making, and the department course for this patient. I have also personally directed, reviewed, and agree with the discharge instructions and disposition. Disposition - Clinical Impression Clinical Impression: Pain of left upper extremity, Anasarca, Chronic renal failure - Patient ED Disposition Is Patient to be Admitted: Yes - Disposition Disposition Time: 13:35 Condition: STABLE - Pt Status Changed To: Hospital Disposition Of: Inpatient - Admit Certification Admit to Inpatient:: After my assessment, the patient will require hospitalization for at least two midnights. This is because of the severity of symptoms shown, intensity of services needed, and/or the medical risk in this patient being treated as an outpatient. - POA Present On Arrival: None
[2018-06-24] MEDS ORDERED: Morphine 4 MG/ML VIAL IV STA (09:49)
[2018-06-24 10:21] LABS: BASO % 0.2 % (0.0-2.0); EOS % 0.2 % (0.0-4.0); HEMOGLOBIN 8.6 g/dL (12.0-18.0); LYMPH # 0.9 K/uL (1.0-4.3); LYMPH % 7.7 % (20.0-40.0); MEAN CORPUSCULAR HEMOGLOBIN 27.2 pg (27.0-31.0); MEAN CORPUSCULAR HGB CONC 30.9 g/dL (33.0-37.0); MEAN PLATELET VOLUME 9.8 fl (7.2-11.7); MONO # 1.2 K/uL (0.0-0.8); MONO % 10.3 % (0.0-10.0); NEUT # 9.7 K/uL (1.8-7.0); NEUT % 81.6 % (50.0-75.0); NRBC % 0.1 % (0.0-0.0); PLATELET COUNT 234 K/uL (130-400); RBC 3.17 Mil/uL (4.40-5.90); RED CELL DISTRIBUTION WIDTH 19.9 % (11.5-14.5); WHITE BLOOD COUNT 11.9 K/uL (4.8-10.8)
[2018-06-24 10:22] LABS: INR 1.2
[2018-06-24 10:25] LABS: PARTIAL THROMBOPLASTIN TIME 33.7 Seconds (25.6-37.1)
[2018-06-24 11:02] LABS: BASO % 0.1 % (0.0-2.0); EOS % 0.2 % (0.0-4.0); HEMOGLOBIN 8.3 g/dL (12.0-18.0); LYMPH # 0.8 K/uL (1.0-4.3); LYMPH % 7.1 % (20.0-40.0); MEAN CELL VOLUME 88.2 fl (80.0-94.0); MEAN CORPUSCULAR HEMOGLOBIN 27.4 pg (27.0-31.0); MEAN CORPUSCULAR HGB CONC 31.1 g/dL (33.0-37.0); MEAN PLATELET VOLUME 9.5 fl (7.2-11.7); MONO # 1.1 K/uL (0.0-0.8); MONO % 10.2 % (0.0-10.0); NEUT % 82.4 % (50.0-75.0); RBC 3.03 Mil/uL (4.40-5.90); RED CELL DISTRIBUTION WIDTH 19.5 % (11.5-14.5)
[2018-06-24 11:05] LABS: INR 1.3; PROTHROMBIN TIME 14.2 Seconds (9.8-13.1)
[2018-06-24 11:08] LABS: CALCIUM 8.5 mg/dL (8.4-10.2); PARTIAL THROMBOPLASTIN TIME 27.6 Seconds (25.6-37.1)
--- NOTE | 2018-06-24 11:15 | US ---
Date of service: 06/24/2018 PROCEDURE: Left Upper Extremity Venous Doppler HISTORY: Pain/swelling COMPARISON: None available. TECHNIQUE: Left upper extremity deep veins, including the lower internal jugular, subclavian, axillary and brachial veins, were evaluated flow, compressibility and respiratory phasicity. FINDINGS: Normal flow, compressibility and respiratory phasicity was observed in the the left upper extremity deep veins. IMPRESSION: No evidence of deep venous thrombosis. Soft tissue swelling seen in the left upper extremity.
[2018-06-24 11:52] LABS: SQUAMOUS EPITHIAL < 1 /hpf (0-5); URINE BILIRUBIN NEGATIVE (NEGATIVE); URINE BLOOD NEGATIVE (NEGATIVE); URINE CLARITY CLEAR (Clear); URINE COLOR YELLOW (YELLOW); URINE GLUCOSE (UA) NEG (NEGATIVE); URINE LEUKOCYTE ESTERASE NEG Leu/uL (Negative); URINE PROTEIN NEGATIVE (NEGATIVE); URINE UROBILINOGEN 0.2-1.0 mg/dL (0.2-1.0)
[2018-06-24 12:21] LABS: LYMPHOCYTE 8 % (20-50); MONOCYTE 10 % (0-10); NEUTROPHIL 82 % (42-75); TOTAL CELLS COUNTED 100
[2018-06-24 12:22] LABS: ANISOCYTOSIS SLIGHT; HYPOCHROMIC MODERATE; PLATELET ESTIMATE NORMAL (NORMAL)
[2018-06-24 12:23] LABS: OVALOCYTES SLIGHT; TEARDROP CELLS SLIGHT
--- NOTE | 2018-06-24 12:34 | RAD ---
Date of service: 06/24/2018 HISTORY: SOB COMPARISON: Comparison is made with 05/22/2018 FINDINGS: LUNGS: Mild pulmonary vascular congestion PLEURA: No significant pleural effusion identified, no pneumothorax apparent. CARDIOVASCULAR: No aortic atherosclerotic calcification present. Normal cardiac size. No pulmonary vascular congestion. OSSEOUS STRUCTURES: No significant abnormalities. VISUALIZED UPPER ABDOMEN: Normal. OTHER FINDINGS: None. IMPRESSION: [id number] pulmonary vascular congestion.
[2018-06-24] MEDS ORDERED: Potassium Chloride 20 mEq ER Tab PO STA (12:40)
[2018-06-24] MEDS ORDERED: Potassium CL 10mEq/100ml 100 ML IVPB SCH (12:45)
[2018-06-24] MEDS ORDERED: Potassium CL 10 MEQ/50 ML 50 ML ONE ×3 (13:16→15:32)
[2018-06-24] MEDS: POTASSIUM CL 10 MEQ/50 ML IVPB SCH ×4 (13:17→17:05)
[2018-06-24] MEDS ORDERED: Ergocalciferol 50,000 Intl Units Cap PO SCH (17:45)
--- NOTE | 2018-06-24 17:57 | CARD ---
APPROVED REPORT Date of service: 06/24/2018 EKG Measurement Heart [id number] <Conclusion> Atrial fibrillation with premature ventricular complexes Low voltage QRS Septal infarct, age undetermined Abnormal ECG
[2018-06-24] MEDS ORDERED: Potassium CL 10 MEQ/50 ML 50 ML IVPB SCH (18:00)
[2018-06-25 05:34] LABS: MEAN CELL VOLUME 85.9 fl (80.0-94.0); MEAN CORPUSCULAR HEMOGLOBIN 26.9 pg (27.0-31.0); MEAN CORPUSCULAR HGB CONC 31.4 g/dL (33.0-37.0); RBC 3.33 Mil/uL (4.40-5.90); RED CELL DISTRIBUTION WIDTH 19.5 % (11.5-14.5); WHITE BLOOD COUNT 11.2 K/uL (4.8-10.8)
[2018-06-25 05:35] LABS: CALCIUM 8.7 mg/dL (8.4-10.2)
[2018-06-25] MEDS ORDERED: metOLazone 5 MG TAB PO SCH (09:00)
[2018-06-25] MEDS: Multivitamin Vitamin B Complex (Nephro-Vite) Tab PO SCH (09:43)
[2018-06-25] MEDS: Potassium Chloride 20 mEq ER Tab PO SCH ×2 (12:33→17:17)
[2018-06-25] MEDS: ceFAZolin 1 GM in Sodium Chloride 0.9% 100 ML IVPB SCH ×2 (13:55→21:04)
--- NOTE | 2018-06-25 14:01 | CP.PCM.CON ---
History of Present Illness - History of Present Illness History of Present Illness: This patient who is 72 years of age male I was called to see him for abnormal kidney function. Patient presented to the emergency room with edema of the lower extremity and abdominal ascites and basically anasarca high BUN and creatinine. Patient known from last admission which was couple weeks ago to have underlying chronic kidney disease stage IV etiology unknown probably related to hypertensive chronic kidney disease? Also reported that he have suprarenal right mass the patient supposed to have CT scan when he is more stabl e. Patient is not giving good history and the medication noted in the history and physical examination and the emergency room note And social history not contributory Past medical history as far as we can tell chronic kidney disease stage IV and also GI bleeding gastritis hypertension Review of Systems - Constitutional Constitutional: Anorexia. absent: Chills - EENT Eyes: absent: Exophthalmos, Irritation Nose/Mouth/Throat: absent: Epistaxis, Nasal Discharge - Cardiovascular Cardiovascular: Dyspnea, Edema, Leg Edema. absent: Chest Pain - Respiratory Respiratory: Cough, Dyspnea, Chest Congestion. absent: Hemoptysis - Gastrointestinal Gastrointestinal: absent: Abdominal Pain, Coffee Ground Emesis, Loose Stools - Genitourinary Genitourinary: Nocturia - Musculoskeletal Musculoskeletal: Muscle Weakness - Neurological Neurological: absent: Confusion, Focal Weakness - Psychiatric Psychiatric: As Per HPI - Endocrine Endocrine: Fatigue - Hematologic/Lymphatic Hematologic: absent: Easy Bleeding Past Patient History - Infectious Disease Hx of Infectious Diseases: None - Past Medical History & Family History Past Medical History?: Yes - Past Social History Smoking Status: Never Smoked - CARDIAC Hx Hypercholesterolemia: Yes Hx Hypertension: Yes - PULMONARY Hx Respiratory Disorders: No - NEUROLOGICAL Hx Neurological Disorder: No - HEENT Hx HEENT Problems: No - RENAL Hx Chronic Kidney Disease: Yes Hx Dialysis: No Other/Comment: BPH - HEMATOLOGICAL/ONCOLOGICAL Hx Blood Disorders: No Hx AIDS: No Hx Human Immunodeficiency Virus (HIV): No - INTEGUMENTARY Hx Dermatological Problems: No - MUSCULOSKELETAL/RHEUMATOLOGICAL Hx Arthritis: Yes Hx Falls: No Hx Unsteady Gait: Yes (cane) - GASTROINTESTINAL Hx Gastrointestinal Disorders: No - GENITOURINARY/GYNECOLOGICAL Hx Incontinence: Yes Other/Comment: severe scrotal swelling x2 mo - PSYCHIATRIC Hx Psychophysiologic Disorder: No Hx Substance Use: No - SURGICAL HISTORY Hx Surgeries: No - ANESTHESIA Hx Anesthesia: No Meds Allergies/Adverse Reactions: Allergies Allergy/AdvReac Type Severity Reaction Status Date / Time No Known Allergies Allergy Verified 05/22/18 03:39 - Medications Medications: Current Medications Atorvastatin Calcium (Lipitor) 10 mg PO HS [facility] Last Admin: 06/24/18 21:21 Dose: 10 mg Ergocalciferol (Drisdol 50,000 Intl Units Cap) 1 cap PO QWK [facility] Ferrous Sulfate (Feosol) 325 mg PO Q8 [facility] Last Admin: 06/25/18 09:44 Dose: 325 mg Furosemide (Lasix) 40 mg IV ONCE ONE Stop: 06/26/18 12:05 Furosemide (Lasix) 40 mg IV BID [facility] Hydralazine HCl (Apresoline) 50 mg PO Q8 [facility] Last Admin: 06/25/18 09:44 Dose: 50 mg Cefazolin Sodium 1 gm/ Sodium (Chloride) 100 mls @ 100 mls/hr IVPB Q12 [facility]; Protocol Last Admin: 06/25/18 13:55 Dose: 100 mls/hr Metolazone (Zaroxolyn) 2.5 mg PO BID [facility] Metoprolol Tartrate (Lopressor) 25 mg PO Q12 [facility] Last Admin: 06/25/18 09:43 Dose: 25 mg Potassium Chloride (K-Dur 20 Meq Er Tab) 20 meq PO BID [facility] Last Admin: 06/25/18 12:33 Dose: 20 meq Tamsulosin HCl (Flomax) 0.4 mg PO DAILY [facility] Last Admin: 06/25/18 09:44 Dose: 0.4 mg Thiamine HCl (Vitamin B1 Tab) 100 mg PO DAILY [facility] Last Admin: 06/25/18 09:43 Dose: 100 mg Vitamin B Complex/Vit C/Folic Acid (Nephro-Wilma) 1 tab PO DAILY [facility] Last Admin: 06/25/18 09:43 Dose: 1 tab Zolpidem Tartrate (Ambien) 5 mg PO HS [facility] Last Admin: 06/24/18 21:23 Dose: 5 mg Physical Exam - Constitutional Appears: No Acute Distress - Eye Exam Eye Exam: Conjunctival injection - ENT Exam ENT Exam: Mucous Membranes Moist - Neck Exam Neck exam: Negative for: Lymphadenopathy - Respiratory Exam Respiratory Exam: Rales, Rhonchi. absent: Chest Wall Tenderness - Cardiovascular Exam Cardiovascular Exam: absent: Gallop, Irregular Rhythm, Rubs - GI/Abdominal Exam GI & Abdominal Exam: Normal Bowel Sounds - Extremities Exam Extremities exam: Positive for: pedal edema. Negative for: calf tenderness - Back Exam Back exam: absent: CVA tenderness (L), CVA tenderness (R) - Neurological Exam Neurological exam: Alert - Psychiatric Exam Psychiatric exam: Normal Affect Results - Vital Signs Recent Vital Signs: Last Vital Signs Temp 98.2 F 06/25/18 12:29 Pulse 69 06/25/18 12:29 Resp 18 06/25/18 12:29 BP 131/67 06/25/18 12:29 Pulse Ox 98 06/25/18 12:29 - Labs Result Diagrams: 06/25/18 04:25 06/25/18 04:25 Labs: Laboratory Results - last 24 hr 06/24/18 06/24/18 06/25/18 09:08 10:46 04:25 WBC 11.2 H RBC 3.33 L Hgb 9.0 L Hct 28.6 L MCV 85.9 D MCH 26.9 L MCHC 31.4 L RDW 19.5 H Plt Count 240 Sodium 136 Potassium 2.9 L Chloride 98 Carbon Dioxide 26 Anion Gap 15 BUN 74 H Creatinine 3.0 H Est GFR ( Amer) 25 Est GFR (Non-Af Amer) 21 POC Glucose (mg/dL) 92 Random Glucose 95 Calcium 8.5 Magnesium 2.0 Total Bilirubin 0.7 AST 18 ALT 17 L D Alkaline Phosphatase 178 H NT-Pro-B Natriuret Pep 37885 H Total Protein 5.9 L Albumin 3.0 L Globulin 2.9 Albumin/Globulin Ratio 1.0 06/25/18 04:25 WBC RBC Hgb Hct MCV MCH MCHC RDW Plt Count Sodium 139 Potassium 3.3 L Chloride 97 L Carbon Dioxide 26 Anion Gap 19 BUN 71 H Creatinine 3.1 H Est GFR ( Amer) 24 Est GFR (Non-Af Amer) 20 POC Glucose (mg/dL) Random Glucose 81 Calcium 8.7 Magnesium Total Bilirubin 0.7 AST 17 ALT 24 Alkaline Phosphatase 179 H NT-Pro-B Natriuret Pep 91335 H Total Protein 6.2 L Albumin 3.0 L Globulin 3.1 Albumin/Globulin Ratio 1.0 Assessment & Plan (1) Chronic kidney disease, stage IV (severe) Assessment and Plan: Patient has underlying chronic kidney disease stage IV and he presented with anasarca including leg swelling abdominal ascites upper extremity swollen. Urinalysis did not show proteinuria Etiology of chronic kidney disease is not clear whether related to hypertensive chronic kidney disease number From previous ultrasound of the kidney showed right suprarenal mass Plan Continue Lasix intravenously twice daily 40 mg and also he is on Zaroxolyn as well. Daily weight to estimate the response Start spot urine for protein to creatinine ratio Serum phosphorus Serum PTH Patient need CAT scan of the abdomen without IV contrast at the start to evaluate the suprarenal mass. Patient need kidney biopsy as soon as he is improving Status: Acute (2) HTN (hypertension) Status: Acute (3) Hand swelling Status: Acute
[2018-06-25] MEDS: metOLazone 2.5 MG TAB PO SCH (17:16)
--- NOTE | 2018-06-25 18:29 | CP.PCM.CON ---
History of Present Illness - History of Present Illness History of Present Illness: I was asked to evaluate patient by Dr Stout Patient seen 06/25/18 1800 Patient is a 72 year old male with HTn afib chronic kidney disease who presents with progressive dyspnea and LE edema. The patient states symptoms have become progressive over the last few weeks. He has renal insufficiency which has gotten worse. He is not on anticoagulation due to previous anemia. Review of Systems - Constitutional Constitutional: absent: As Per HPI, Anorexia, Chills, Daytime Sleepiness, Excessive Sweating, Fatigue, Fever, Frequent Falls, Headache, Increased Appetite, Lethargy, Malaise, Night Sweats, Snoring, Sleep Apnea, Weight Gain, Weight Loss, Weakness, Other - EENT Eyes: absent: As Per HPI, Blind Spots, Blurred Vision, Change in Vision, Decreased Night Vision, Diplopia, Discharge, Dry Eye, Exophthalmos, Floaters, Irritation, Itchy Eyes, Loss of Peripheral Vision, Pain, Photophobia, Requires Corrective Lenses, Sees Flashes, Spots in Vision, Tunnel Vision, Other Visual Disturbances, Loss of Vision, Other Ears: absent: As Per HPI, Decreased Hearing, Ear Discharge, Ear Pain, Tinnitus, Abnormal Hearing, Disequilibrium, Dizziness, Other Nose/Mouth/Throat: absent: As Per HPI, Epistaxis, Nasal Congestion, Nasal Discharge, Nasal Obstruction, Nasal Trauma, Nose Pain, Post Nasal Drip, Sinus Pain, Sinus Pressure, Bleeding Gums, Change in Voice, Dental Pain, Dry Mouth, Dysphagia, Halitosis, Hoarsness, Lip Swelling, Mouth Lesions, Mouth Pain, Odynophagia, Sore Throat, Throat Swelling, Tongue Swelling, Facial Pain, Neck Pain, Neck Mass, Other - Cardiovascular Cardiovascular: Pedal Edema - Respiratory Respiratory: Dyspnea - Gastrointestinal Gastrointestinal: absent: As Per HPI, Abdominal Pain, Belching, Bloating, Change in Bowel Habits, Change in Stool Character, Coffee Ground Emesis, Constipation, Cramping, Diarrhea, Dyspepsia, Dysphagia, Early Satiety, Excessive Flatus, Fecal Incontinence, Heartburn, Hematemesis, Hematochezia, Loose Stools, Melena, Nausea, Odynophagia, Temesmus, Vomiting, Other - Genitourinary Genitourinary: absent: As Per HPI, Change in Urinary Stream, Difficulty Urinating, Dysuria, Flank Pain, Hematuria, Pyuria, Nocturia, Urinary Incontinence, Urinary Frequency, Urinary Hesitance, Urinary Urgency, Voiding Freq/Small Amts, Freq UTI, Hx Renal/Bladder Calculi, Hx /Renal Surgery, Bl adder Distension, Other - Musculoskeletal Musculoskeletal: absent: As Per HPI, Abnormal Gait, Arthralgias, Atrophy, Back Pain, Deformity, Joint Swelling, Limited Range of Motion, Loss of Height, Muscle Cramps, Muscle Weakness, Myalgias, Neck Pain, Numbness, Radiating Pain into Limb, Stiffness, Tingling, Other - Integumentary Integumentary: absent: As Per HPI, Acne, Alopecia, Bleeding Lesions, Change in Hair, Change in Nails, Change in Pigmentation, Changing Lesions, Dry Skin, Erythema, Furuncle, Hirsutism, Lesions, New Lesions, Non-Healing Lesions, Photosensitivity, Pruritus, Rash, Skin Pain, Skin Ulcer, Sores, Striae, Swelling, Unusual Bruising, Wounds, Jaundice, Other - Neurological Neurological: absent: As Per HPI, Abnormal Gait, Abnormal Hearing, Abnormal Movements, Abnormal Speech, Behavioral Changes, Burning Sensations, Confusion, Convulsions, Disequilibrium, Dizziness, Numbness, Focal Weakness, Frequent Falls, Headaches, Lack of Coordination, Loss of Vision, Memory Loss, Paresthesias, Radicular Pain, Restless Legs, Sensory Deficit, Syncope, Tingling, Tremor, Vertigo, Weakness, Other Visual Disturbances, Other - Psychiatric Psychiatric: absent: As Per HPI, Abnormal Sleep Pattern, Anhedonia, Anxiety, Auditory Hallucinations, Behavioral Changes, Change in Appetite, Change in Libido, Confusion, Depression, Difficulty Concentrating, Hallucinations, Homicidal Ideation, Hopelessness, Irritability, Memory Loss, Mood Swings, Panic Attacks, Paranoia, Suicidal Ideation, Visual Hallucinations, Tactile Hallucinations, Other - Endocrine Endocrine: absent: As Per HPI, Change in Body Appearance, Change in Libido, Cold Intolorance, Deepening of Voice, Excessive Sweating, Fatigue, Flushing, Heat Intolorance, Increase in Ring/Shoe/Hat Size, Palpitations, Polydipsia, Polyphagia, Polyuria, Other - Hematologic/Lymphatic Hematologic: absent: As Per HPI, Easy Bleeding, Easy Bruising, Lymphadenopathy, Other Past Patient History - Infectious Disease Hx of Infectious Diseases: None - Past Medical History & Family History Past Medical History?: Yes - Past Social History Smoking Status: Never Smoked - CARDIAC Hx Hypercholesterolemia: Yes Hx Hypertension: Yes - PULMONARY Hx Respiratory Disorders: No - NEUROLOGICAL Hx Neurological Disorder: No - HEENT Hx HEENT Problems: No - RENAL Hx Chronic Kidney Disease: Yes Hx Dialysis: No Other/Comment: BPH - HEMATOLOGICAL/ONCOLOGICAL Hx Blood Disorders: No Hx AIDS: No Hx Human Immunodeficiency Virus (HIV): No - INTEGUMENTARY Hx Dermatological Problems: No - MUSCULOSKELETAL/RHEUMATOLOGICAL Hx Arthritis: Yes Hx Falls: No Hx Unsteady Gait: Yes (cane) - GASTROINTESTINAL Hx Gastrointestinal Disorders: No - GENITOURINARY/GYNECOLOGICAL Hx Incontinence: Yes Other/Comment: severe scrotal swelling x2 mo - PSYCHIATRIC Hx Psychophysiologic Disorder: No Hx Substance Use: No - SURGICAL HISTORY Hx Surgeries: No - ANESTHESIA Hx Anesthesia: No Meds Allergies/Adverse Reactions: Allergies Allergy/AdvReac Type Severity Reaction Status Date / Time No Known Allergies Allergy Verified 05/22/18 03:39 - Medications Medications: Current Medications Atorvastatin Calcium (Lipitor) 10 mg PO HS [facility] Last Admin: 06/24/18 21:21 Dose: 10 mg Ergocalciferol (Drisdol 50,000 Intl Units Cap) 1 cap PO QWK [facility] Ferrous Sulfate (Feosol) 325 mg PO Q8 [facility] Last Admin: 06/25/18 17:15 Dose: 325 mg Furosemide (Lasix) 40 mg IV ONCE ONE Stop: 06/26/18 12:05 Furosemide (Lasix) 40 mg IV BID [facility] Hydralazine HCl (Apresoline) 50 mg PO Q8 [facility] Last Admin: 06/25/18 17:15 Dose: 50 mg Cefazolin Sodium 1 gm/ Sodium (Chloride) 100 mls @ 100 mls/hr IVPB Q12 [facility]; P rotocol Last Admin: 06/25/18 13:55 Dose: 100 mls/hr Metolazone (Zaroxolyn) 2.5 mg PO BID [facility] Last Admin: 06/25/18 17:16 Dose: 2.5 mg Metoprolol Tartrate (Lopressor) 25 mg PO Q12 [facility] Last Admin: 06/25/18 09:43 Dose: 25 mg Potassium Chloride (K-Dur 20 Meq Er Tab) 20 meq PO BID [facility] Last Admin: 06/25/18 17:17 Dose: 20 meq Tamsulosin HCl (Flomax) 0.4 mg PO DAILY [facility] Last Admin: 06/25/18 09:44 Dose: 0.4 mg Thiamine HCl (Vitamin B1 Tab) 100 mg PO DAILY [facility] Last Admin: 06/25/18 09:43 Dose: 100 mg Vitamin B Complex/Vit C/Folic Acid (Nephro-Wilma) 1 tab PO DAILY [facility] Last Admin: 06/25/18 09:43 Dose: 1 tab Zolpidem Tartrate (Ambien) 5 mg PO [facility] Last Admin: 06/24/18 21:23 Dose: 5 mg Physical Exam - Constitutional Appears: Non-toxic - Head Exam Head Exam: NORMAL INSPECTION - Eye Exam Eye Exam: Normal appearance - ENT Exam ENT Exam: Mucous Membranes Moist - Neck Exam Neck exam: Positive for: Full Rom - Respiratory Exam Respiratory Exam: Decreased Breath Sounds - Cardiovascular Exam Cardiovascular Exam: Irregular Rhythm - GI/Abdominal Exam GI & Abdominal Exam: Normal Bowel Sounds - Rectal Exam Rectal Exam: Deferred - Extremities Exam Extremities exam: Positive for: pedal edema - Back Exam Back exam: NORMAL INSPECTION - Neurological Exam Neurological exam: Alert, Oriented x3 - Psychiatric Exam Psychiatric exam: Normal Affect - Skin Skin Exam: Normal Color Results - Vital Signs Recent Vital Signs: Last Vital Signs Temp 99.2 F 06/25/18 16:01 Pulse 84 06/25/18 17:15 Resp 16 06/25/18 16:01 BP 137/67 06/25/18 17:15 Pulse Ox 99 06/25/18 16:01 - Labs Result Diagrams: 06/25/18 04:25 06/25/18 04:25 Labs: Laboratory Results - last 24 hr 06/25/18 06/25/18 04:25 04:25 WBC 11.2 H RBC 3.33 L Hgb 9.0 L Hct 28.6 L MCV 85.9 D MCH 26.9 L MCHC 31.4 L RDW 19.5 H Plt Count 240 Sodium 139 Potassium 3.3 L Chloride 97 L Carbon Dioxide 26 Anion Gap 19 BUN 71 H Creatinine 3.1 H Est GFR ( Amer) 24 Est GFR (Non-Af Amer) 20 Random Glucose 81 Calcium 8.7 Total Bilirubin 0.7 AST 17 ALT 24 Alkaline Phosphatase 179 H NT-Pro-B Natriuret Pep 74202 H Total Protein 6.2 L Albumin 3.0 L Globulin 3.1 Albumin/Globulin Ratio 1.0 - EKG Data EKG Interpreted by: Myself Assessment & Plan (1) Atrial fibrillation Assessment and Plan: rate is controlled. I will avoid anticaogulation due to previous bleeding Status: Acute (2) Chronic kidney disease, stage IV (severe) Assessment and Plan: followed by Dr Gooden Status: Acute (3) HTN (hypertension) Assessment and Plan: will monitor blood pressure Status: Acute
--- NOTE | 2018-06-26 07:56 | CP.PCM.HP ---
History of Present Illness - History of Present Illness History of Present Illness: This is a 72 y/o male admitted for increasing leg edema and left upper ext edema. Family claims that he was also noted to be having worsening of SOB in za last few weeks hence brought the patient to ER. Initial labs showed elevated proBNP 65595, BUN 74 Cr 3 GFR 20 and potassium of 2.9 He has a hx of HTN and stage 4 CKD from HTN. He had not had any dialysis in the past. He was started on high dose lasix 80 bid and Zaroxylin 5 mg bid. He is on hydralazine amlodipine and Metoprolol. Medical Hx HTN, atrial fibrillation, Chronic pulm edema, CKD 4 from HTN, OA Present on Admission - Present on Admission Any Indicators Present on Admission: No History of DVT/PE: No History of Uncontrolled Diabetes: No Urinary Catheter: No Decubitus Ulcer Present: No Review of Systems - Cardiovascular Cardiovascular: Leg Edema, Orthopnea - Respiratory Respiratory: Cough, Dyspnea, Dyspnea on Exertion Past Patient History - Infectious Disease Hx of Infectious Diseases: None - Past Medical History & Family History Past Medical History?: Yes - Past Social History Smoking Status: Never Smoked - CARDIAC Hx Hypercholesterolemia: Yes Hx Hypertension: Yes - PULMONARY Hx Respiratory Disorders: No - NEUROLOGICAL Hx Neurological Disorder: No - HEENT Hx HEENT Problems: No - RENAL Hx Chronic Kidney Disease: Yes Hx Dialysis: No Other/Comment: BPH - HEMATOLOGICAL/ONCOLOGICAL Hx Blood Disorders: No Hx AIDS: No Hx Human Immunodeficiency Virus (HIV): No - INTEGUMENTARY Hx Dermatological Problems: No - MUSCULOSKELETAL/RHEUMATOLOGICAL Hx Arthritis: Yes Hx Falls: No Hx Unsteady Gait: Yes (cane) - GASTROINTESTINAL Hx Gastrointestinal Disorders: No - GENITOURINARY/GYNECOLOGICAL Hx Incontinence: Yes Other/Comment: severe scrotal swelling x2 mo - PSYCHIATRIC Hx Psychophysiologic Disorder: No Hx Substance Use: No - SURGICAL HISTORY Hx Surgeries: No - ANESTHESIA Hx Anesthesia: No Meds Allergies/Adverse Reactions: Allergies Allergy/AdvReac Type Severity Reaction Status Date / Time No Known Allergies Allergy Verified 05/22/18 03:39 Physical Exam - Head Exam Head Exam: NORMAL INSPECTION - Eye Exam Eye Exam: Normal appearance - ENT Exam ENT Exam: Mucous Membranes Moist - Respiratory Exam Respiratory Exam: Decreased Breath Sounds - Cardiovascular Exam Cardiovascular Exam: Irregular Rhythm - GI/Abdominal Exam GI & Abdominal Exam: Normal Bowel Sounds Additional comments: distended abdomen - Extremities Exam Additional comments: edema left vani and hand edema pitting on both lower extremities - Neurological Exam Neurological exam: CN II-XII Intact Results - Vital Signs Recent Vital Signs: Last Vital Signs Temp 98.6 F 06/26/18 04:27 Pulse 91 H 06/26/18 04:27 Resp 20 06/26/18 04:27 BP 152/73 H 06/26/18 04:27 Pulse Ox 97 06/26/18 04:27 - Labs Result Diagrams: 06/25/18 04:25 06/25/18 04:25 Labs: Laboratory Results - last 24 hr 06/25/18 20:49 Phosphorus 4.2 Assessment & Plan (1) Anasarca Status: Acute (2) Pulmonary edema Status: Acute (3) Congestive heart failure (CHF) Status: Acute (4) Chronic kidney disease, stage IV (severe) Status: Acute (5) Hypokalemia Status: Acute (6) HTN (hypertension) Status: Acute (7) Atrial fibrillation Status: Acute - Assessment and Plan (Free Text) Plan: start cautious diuresis replete potassium monitor congestion US of the left upper ext Caardiology eval renal consult ECHO daily EKG probnp and troponin fluid restriction low salt diet
--- NOTE | 2018-06-26 08:24 | CP.PCM.DIS ---
Provider - Provider Date of Admission: 06/24/18 13:35 Attending physician: Josh Wallis MD Consults: 06/24/18 13:38 Nephrology Consult Stat Comment: Consulting Provider: Josse Gooden Consulting Physician: Josse Gooden Reason for Consult: RF, hypokalemia 06/24/18 17:43 Cardiology Consult Routine Comment: Consulting Provider: Ford Flores Consulting Physician: Ford Flores Reason for Consult: elevated bnp, afib Diagnosis - Discharge Diagnosis (1) Anasarca Status: Acute (2) Pulmonary edema Status: Acute (3) Congestive heart failure (CHF) Status: Acute (4) Chronic kidney disease, stage IV (severe) Status: Acute (5) Hypokalemia Status: Acute (6) HTN (hypertension) Status: Acute (7) Atrial fibrillation Status: Acute Hospital Course - Lab Results Lab Results: Most Recent Lab Values WBC 11.2 K/uL (4.8-10.8) H 06/25/18 04:25 RBC 3.33 Mil/uL (4.40-5.90) L 06/25/18 04:25 Hgb 9.0 g/dL (12.0-18.0) L 06/25/18 04:25 Hct 28.6 % (35.0-51.0) L 06/25/18 04:25 MCV 85.9 fl (80.0-94.0) D 06/25/18 04:25 MCH 26.9 pg (27.0-31.0) L 06/25/18 04:25 MCHC 31.4 g/dL (33.0-37.0) L 06/25/18 04:25 RDW 19.5 % (11.5-14.5) H 06/25/18 04:25 Plt Count 240 K/uL (130-400) 06/25/18 04:25 MPV 9.5 fl (7.2-11.7) 06/24/18 10:46 Neut % (Auto) 82.4 % (50.0-75.0) H 06/24/18 10:46 Lymph % (Auto) 7.1 % (20.0-40.0) L 06/24/18 10:46 [place]ether % (Auto) 10.2 % (0.0-10.0) H 06/24/18 10:46 Eos % (Auto) 0.2 % (0.0-4.0) 06/24/18 10:46 Baso % (Auto) 0.1 % (0.0-2.0) 06/24/18 10:46 Neut # (Auto) 9.0 K/uL (1.8-7.0) H 06/24/18 10:46 Lymph # (Auto) 0.8 K/uL (1.0-4.3) L 06/24/18 10:46 Meriwether # (Auto) 1.1 K/uL (0.0-0.8) H 06/24/18 10:46 Eos # (Auto) 0.0 K/uL (0.0-0.7) 06/24/18 10:46 Baso # (Auto) 0.0 K/uL (0.0-0.2) 06/24/18 10:46 Neutrophils % (Manual) 82 % (42-75) H 06/24/18 10:00 Lymphocytes % (Manual) 8 % (20-50) L 06/24/18 10:00 Monocytes % (Manual) 10 % (0-10) 06/24/18 10:00 Platelet Estimate Normal (NORMAL) 06/24/18 10:00 Hypochromasia (manual) Moderate 06/24/18 10:00 Anisocytosis (manual) Slight 06/24/18 10:00 Tear Drop Cells Slight 06/24/18 10:00 Ovalocytes Slight 06/24/18 10:00 PT 14.2 Seconds (9.8-13.1) H 06/24/18 10:46 INR 1.3 06/24/18 10:46 APTT 27.6 Seconds (25.6-37.1) 06/24/18 10:46 Sodium 139 mmol/l (132-148) 06/25/18 04:25 Potassium 3.3 MMOL/L (3.6-5.0) L 06/25/18 04:25 Chloride 97 mmol/L (98-107) L 06/25/18 04:25 Carbon Dioxide 26 mmol/L (22-30) 06/25/18 04:25 Anion Gap 19 (10-20) 06/25/18 04:25 BUN 71 mg/dl (9-20) H 06/25/18 04:25 Creatinine 3.1 mg/dl (0.8-1.5) H 06/25/18 04:25 Est GFR ( Amer) 24 06/25/18 04:25 Est GFR (Non-Af Amer) 20 06/25/18 04:25 POC Glucose (mg/dL) 92 mg/dL (65-110) 06/24/18 09:08 Random Glucose 81 mg/dL (75-110) 06/25/18 04:25 Calcium 8.7 mg/dL (8.4-10.2) 06/25/18 04:25 Phosphorus 4.2 mg/dl (2.5-4.5) 06/25/18 20:49 Magnesium 2.0 MG/DL (1.6-2.3) 06/24/18 10:46 Total Bilirubin 0.7 mg/dl (0.2-1.3) 06/25/18 04:25 AST 17 U/L (17-59) 06/25/18 04:25 ALT 24 U/L (21-72) 06/25/18 04:25 Alkaline Phosphatase 179 U/L (38-126) H 06/25/18 04:25 NT-Pro-B Natriuret Pep 44513 pg/ml (0-900) H 06/25/18 04:25 Total Protein 6.2 G/DL (6.3-8.2) L 06/25/18 04:25 Albumin 3.0 g/dL (3.5-5.0) L 06/25/18 04:25 Globulin 3.1 gm/dL (2.2-3.9) 06/25/18 04:25 Albumin/Globulin Ratio 1.0 (1.0-2.1) 06/25/18 04:25 Urine Color Yellow (YELLOW) 06/24/18 11:28 Urine Clarity Clear (Clear) 06/24/18 11:28 Urine pH 6.0 (5.0-8.0) 06/24/18 11:28 Ur Specific Clyde 1.010 (1.003-1.030) 06/24/18 11:28 Urine Protein Negative mg/dL (NEGATIVE) 06/24/18 11:28 Urine Glucose (UA) Neg mg/dL (NEGATIVE) 06/24/18 11:28 Urine Ketones Negative mg/dL (NEGATIVE) 06/24/18 11:28 Urine Blood Negative (NEGATIVE) 06/24/18 11:28 Urine Nitrate Negative (NEGATIVE) 06/24/18 11:28 Urine Bilirubin Negative (NEGATIVE) 06/24/18 11:28 Urine Urobilinogen 0.2-1.0 mg/dL (0.2-1.0) 06/24/18 11:28 Ur Leukocyte Esterase Neg Atiya/uL (Negative) 06/24/18 11:28 Urine RBC (Auto) < 1 /hpf (0-3) 06/24/18 11:28 Urine Microscopic WBC 2 /hpf (0-5) 06/24/18 11:28 Ur Squamous Epith Cells < 1 /hpf (0-5) 06/24/18 11:28 Blood Type A POSITIVE 06/24/18 10:46 Antibody Screen Negative 06/24/18 10:46 BBK History Checked Patient has bt 06/24/18 10:46 - Hospital Course Hospital Course: This is a 72 y/o male admitted for GI bleed and noted to have very low hgb necessitating blood transfusion. He was also noted to have pulm edema and in CHF. He has CKD 4 cardiology renal and GI consults were called and evaluated the patient. He was given transfusions and high dose diuretics. He responded to treatment and advised to follow up with GI. and to my office in 2 weeks. Discharge Exam - Head Exam Head Exam: NORMAL INSPECTION - Eye Exam Eye Exam: Normal appearance - ENT Exam Additional comments: pale conjunctivae Discharge Plan - Follow Up Plan Condition: FAIR Disposition: HOME/ ROUTINE
--- NOTE | 2018-06-26 08:33 | CP.PCM.PN ---
Subjective - Date & Time of Evaluation Date of Evaluation: 06/25/18 Time of Evaluation: 11:00 - Subjective Subjective: Patient continues to ahve SOB and leg edema and left hand swelling Has no chest pain Hgb 9 CXR showed persistent edema Objective - Vital Signs/Intake and Output Vital Signs (last 24 hours): Temp Pulse Resp BP Pulse Ox 99.6 F 86 20 150/67 97 06/26/18 07:56 06/26/18 07:56 06/26/18 07:56 06/26/18 07:56 06/26/18 07:56 - Medications Medications: Current Medications Atorvastatin Calcium (Lipitor) 10 mg PO HS [facility] Last Admin: 06/25/18 21:03 Dose: 10 mg Ergocalciferol (Drisdol 50,000 Intl Units Cap) 1 cap PO QWK [facility] Ferrous Sulfate (Feosol) 325 mg PO Q8 [facility] Last Admin: 06/26/18 01:22 Dose: 325 mg Furosemide (Lasix) 40 mg IV ONCE ONE Stop: 06/26/18 12:05 Furosemide (Lasix) 40 mg IV BID [facility] Last Admin: 06/25/18 21:07 Dose: 40 mg Hydralazine HCl (Apresoline) 50 mg PO Q8 [facility] Last Admin: 06/26/18 01:21 Dose: 50 mg Cefazolin Sodium 1 gm/ Sodium (Chloride) 100 mls @ 100 mls/hr IVPB Q12 [facility]; Protocol Last Admin: 06/25/18 21:04 Dose: 100 mls/hr Metolazone (Zaroxolyn) 2.5 mg PO BID [facility] Last Admin: 06/25/18 17:16 Dose: 2.5 mg Metoprolol Tartrate (Lopressor) 25 mg PO Q12 [facility] Last Admin: 06/25/18 21:03 Dose: 25 mg Potassium Chloride (K-Dur 20 Meq Er Tab) 20 meq PO BID [facility] Last Admin: 06/25/18 17:17 Dose: 20 meq Tamsulosin HCl (Flomax) 0.4 mg PO DAILY [facility] Last Admin: 06/25/18 09:44 Dose: 0.4 mg Thiamine HCl (Vitamin B1 Tab) 100 mg PO DAILY [facility] Last Admin: 06/25/18 09:43 Dose: 100 mg Vitamin B Complex/Vit C/Folic Acid (Nephro-Wilma) 1 tab PO DAILY [facility] Last Admin: 06/25/18 09:43 Dose: 1 tab Zolpidem Tartrate (Ambien) 5 mg PO HS [facility] Last Admin: 06/25/18 21:07 Dose: 5 mg - Labs Labs: 06/25/18 04:25 06/25/18 04:25 PT 14.2 Seconds (9.8-13.1) H 06/24/18 10:46 INR 1.3 06/24/18 10:46 APTT 27.6 Seconds (25.6-37.1) 06/24/18 10:46 - Head Exam Head Exam: NORMAL INSPECTION - Eye Exam Additional comments: pale conjunctivae - ENT Exam ENT Exam: Mucous Membranes Moist - Respiratory Exam Respiratory Exam: Decreased Breath Sounds - Cardiovascular Exam Cardiovascular Exam: Irregular Rhythm - GI/Abdominal Exam GI & Abdominal Exam: Normal Bowel Sounds - Extremities Exam Additional comments: leg edema bilateral, left hand edema Assessment and Plan (1) Anasarca Status: Acute (2) Pulmonary edema Status: Acute (3) Congestive heart failure (CHF) Status: Acute (4) Chronic kidney disease, stage IV (severe) Status: Acute (5) Hypokalemia Status: Acute (6) HTN (hypertension) Status: Acute (7) Atrial fibrillation Status: Acute (8) GI bleed Status: Acute - Assessment and Plan (Free Text) Plan: Cont meds follow up ECHO report from last visit cont diuresis fluid restriction
[2018-06-26] MEDS: ceFAZolin 1 GM in Sodium Chloride 0.9% 100 ML IVPB SCH (09:39)
[2018-06-26] MEDS: Multivitamin Vitamin B Complex (Nephro-Vite) Tab PO SCH (09:40)
[2018-06-26] MEDS: Potassium Chloride 20 mEq ER Tab PO SCH ×2 (09:40→17:30)
[2018-06-26] MEDS: metOLazone 2.5 MG TAB PO SCH ×2 (09:42→17:29)
--- NOTE | 2018-06-26 10:46 | CP.PCM.PN ---
Subjective - Date & Time of Evaluation Date of Evaluation: 06/26/18 Time of Evaluation: 10:47 - Subjective Subjective: Patient awake and conscious Not in acute distress Decreased shortness of breath No good record of urine output Vital signs stable No chest pain nausea no vomiting Objective - Vital Signs/Intake and Output Vital Signs (last 24 hours): Temp Pulse Resp BP Pulse Ox 99.6 F 86 20 150/67 97 06/26/18 07:56 06/26/18 09:41 06/26/18 07:56 06/26/18 09:41 06/26/18 07:56 - Medications Medications: Current Medications Acetylcysteine (Acetylcysteine 20%) 3 ml PO BID [facility] Stop: 06/27/18 17:01 Atorvastatin Calcium (Lipitor) 10 mg PO HS [facility] Last Admin: 06/25/18 21:03 Dose: 10 mg Ergocalciferol (Drisdol 50,000 Intl Units Cap) 1 cap PO QWK [facility] Ferrous Sulfate (Feosol) 325 mg PO Q8 [facility] Last Admin: 06/26/18 09:40 Dose: 325 mg Furosemide (Lasix) 40 mg IV ONCE ONE Stop: 06/26/18 12:05 Furosemide (Lasix) 40 mg IV BID [facility] Last Admin: 06/26/18 09:41 Dose: 40 mg Hydralazine HCl (Apresoline) 50 mg PO Q8 [facility] Last Admin: 06/26/18 09:40 Dose: 50 mg Cefazolin Sodium 1 gm/ Sodium (Chloride) 100 mls @ 100 mls/hr IVPB Q12 [facility]; Protocol Last Admin: 06/26/18 09:39 Dose: 100 mls/hr Metolazone (Zaroxolyn) 2.5 mg PO BID [facility] Last Admin: 06/26/18 09:42 Dose: 2.5 mg Metoprolol Tartrate (Lopressor) 25 mg PO Q12 [facility] Last Admin: 06/26/18 09:41 Dose: 25 mg Potassium Chloride (K-Dur 20 Meq Er Tab) 20 meq PO BID [facility] Last Admin: 06/26/18 09:40 Dose: 20 meq Tamsulosin HCl (Flomax) 0.4 mg PO DAILY [facility] Last Admin: 06/26/18 09:40 Dose: 0.4 mg Thiamine HCl (Vitamin B1 Tab) 100 mg PO DAILY [facility] Last Admin: 06/26/18 09:42 Dose: 100 mg Vitamin B Complex/Vit C/Folic Acid (Nephro-Wilma) 1 tab PO DAILY [facility] Last Admin: 06/26/18 09:40 Dose: 1 tab Zolpidem Tartrate (Ambien) 5 mg PO HS [facility] Last Admin: 06/25/18 21:07 Dose: 5 mg - Labs Labs: 06/25/18 04:25 06/25/18 04:25 PT 14.2 Seconds (9.8-13.1) H 06/24/18 10:46 INR 1.3 06/24/18 10:46 APTT 27.6 Seconds (25.6-37.1) 06/24/18 10:46 - Constitutional Appears: No Acute Distress - Eye Exam Eye Exam: Conjunctival injection - ENT Exam ENT Exam: Mucous Membranes Moist - Neck Exam Neck Exam: absent: Lymphadenopathy - Respiratory Exam Respiratory Exam: Rhonchi, NORMAL BREATHING PATTERN. absent: Chest Wall Tenderness - Cardiovascular Exam Cardiovascular Exam: absent: Gallop, JVD, Rubs - GI/Abdominal Exam GI & Abdominal Exam: Soft, Normal Bowel Sounds - Extremities Exam Extremities Exam: absent: Calf Tenderness - Back Exam Back Exam: absent: CVA tenderness (L), CVA tenderness (R) - Neurological Exam Neurological Exam: Alert - Psychiatric Exam Psychiatric exam: Normal Affect - Skin Skin Exam: absent: Cyanosis Assessment and Plan (1) Chronic kidney disease, stage IV (severe) Assessment & Plan: Patient has underlying chronic kidney disease stage IV and he presented with anasarca including leg swelling abdominal ascites upper extremity swollen. Urinalysis did not show proteinuria Etiology of chronic kidney disease is not clear whether related to hypertensive chronic kidney disease number From previous ultrasound of the kidney showed right suprarenal mass Plan Continue Lasix intravenously twice daily 40 mg and also he is on Zaroxolyn as well. Daily weight to estimate the response Suggest to do CT scan of the abdomen with IV contrast however the risk of worsening of kidney function has been explained to the patient and possible need for dialysis because he is on the edge of the need of dialysis. Patient is agreeable to take the risk rather than not investigating the right suprarenal mass. Discussed with the nurse practitioner to give Mucomyst today and possible CAT scan with IV contrast if the patient continued to be agreeable Status: Acute (2) HTN (hypertension) Status: Acute (3) Hand swelling Status: Acute
[2018-06-26 10:54] LABS: HEMOGLOBIN 8.6 g/dL (12.0-18.0); MEAN CELL VOLUME 85.8 fl (80.0-94.0); MEAN CORPUSCULAR HEMOGLOBIN 27.1 pg (27.0-31.0); MEAN CORPUSCULAR HGB CONC 31.6 g/dL (33.0-37.0); RBC 3.16 Mil/uL (4.40-5.90); RED CELL DISTRIBUTION WIDTH 19.5 % (11.5-14.5); WHITE BLOOD COUNT 14.8 K/uL (4.8-10.8)
[2018-06-26 11:15] LABS: CALCIUM 8.3 mg/dL (8.4-10.2)
[2018-06-26 12:29] LABS: CREATININE, RANDOM URINE 61.4 mg/dL
[2018-06-26] MEDS: Acetylcysteine 20% Inhal Soln (4ml) PO SCH ×2 (13:39→17:28)
[2018-06-27] MEDS: ceFAZolin 1 GM in Sodium Chloride 0.9% 100 ML IVPB SCH ×3 (01:32→21:31)
--- NOTE | 2018-06-27 02:04 | CP.PCM.PN ---
Subjective - Date & Time of Evaluation Date of Evaluation: 06/26/18 Time of Evaluation: 08:30 - Subjective Subjective: Pt seen and assessed at bedside. Noted to have edema predominantly in the abdomen and lower extremities; renal function is worsening. The pt is in no acute distress at this time, breathing is unlabored. Review of Systems - Review of Systems All systems: reviewed and no additional remarkable complaints except - Musculoskeletal Additional comments: worsening swelling Objective - Vital Signs/Intake and Output Vital Signs (last 24 hours): Temp Pulse Resp BP Pulse Ox 97.3 F L 89 18 144/55 L 96 06/27/18 01:09 06/27/18 01:09 06/27/18 01:09 06/27/18 01:09 06/27/18 01:09 Intake and Output: 06/26/18 06/27/18 18:59 06:59 Intake Total 840 Output Total 70 Balance 770 - Medications Medications: Current Medications Acetylcysteine (Acetylcysteine 20%) 3 ml PO BID [facility] Stop: 06/27/18 17:01 Last Admin: 06/26/18 17:28 Dose: 3 ml Atorvastatin Calcium (Lipitor) 10 mg PO HS [facility] Last Admin: 06/27/18 01:45 Dose: 10 mg Ergocalciferol (Drisdol 50,000 Intl Units Cap) 1 cap PO QWK [facility] Ferrous Sulfate (Feosol) 325 mg PO Q8 [facility] Last Admin: 06/27/18 01:46 Dose: 325 mg Furosemide (Lasix) 40 mg IV BID [facility] Last Admin: 06/26/18 17:29 Dose: 40 mg Hydralazine HCl (Apresoline) 50 mg PO Q8 [facility] Last Admin: 06/27/18 01:46 Dose: 50 mg Cefazolin Sodium 1 gm/ Sodium (Chloride) 100 mls @ 100 mls/hr IVPB Q12 [facility]; Protocol Last Admin: 06/27/18 01:32 Dose: 100 mls/hr Metolazone (Zaroxolyn) 2.5 mg PO BID [facility] Last Admin: 06/26/18 17:29 Dose: 2.5 mg Metoprolol Tartrate (Lopressor) 25 mg PO Q12 [facility] Last Admin: 06/27/18 01:45 Dose: 25 mg Potassium Chloride (K-Dur 20 Meq Er Tab) 20 meq PO BID [facility] Last Admin: 06/26/18 17:30 Dose: 20 meq Tamsulosin HCl (Flomax) 0.4 mg PO DAILY [facility] Last Admin: 06/26/18 09:40 Dose: 0.4 mg Thiamine HCl (Vitamin B1 Tab) 100 mg PO DAILY [facility] Last Admin: 06/26/18 09:42 Dose: 100 mg Vitamin B Complex/Vit C/Folic Acid (Nephro-Wilma) 1 tab PO DAILY [facility] Last Admin: 06/26/18 09:40 Dose: 1 tab Zolpidem Tartrate (Ambien) 5 mg PO HS [facility] Last Admin: 06/25/18 21:07 Dose: 5 mg - Labs Labs: 06/26/18 10:50 06/26/18 10:50 PT 14.2 Seconds (9.8-13.1) H 06/24/18 10:46 INR 1.3 06/24/18 10:46 APTT 27.6 Seconds (25.6-37.1) 06/24/18 10:46 - Head Exam Head Exam: NORMOCEPHALIC - Eye Exam Eye Exam: PERRL - ENT Exam ENT Exam: Mucous Membranes Moist - Neck Exam Neck Exam: Full ROM - Respiratory Exam Respiratory Exam: Decreased Breath Sounds - Cardiovascular Exam Cardiovascular Exam: REGULAR RHYTHM, +S1, +S2 - GI/Abdominal Exam GI & Abdominal Exam: Distended, Normal Bowel Sounds - Extremities Exam Extremities Exam: Pedal Edema Additional comments: 3+ pedal edema - Back Exam Back Exam: NORMAL INSPECTION - Neurological Exam Neurological Exam: Alert, Awake, Oriented x3 - Psychiatric Exam Psychiatric exam: Normal Affect - Skin Skin Exam: Dry, Warm Assessment and Plan (1) Chronic kidney disease, stage IV (severe) Assessment & Plan: Assessment/Impression/Major Problems Now: 1.) CKD 4 -Worsening renal failure. -Abdominal Ascites and edema to bilateral upper and lower extremities observed. -Nephro consult appreciated. -Continue Lasix 40 mg BID and zaroxolyn 2.5 mg BID; monitor for hypokalemia, continue potassium supplementation. -possible hemodialysis candidate. -CXR ordered for the morning, assess for effusions and worsening pulmonary vascular congestion. Status: Chronic
[2018-06-27 06:11] LABS: HEMOGLOBIN 8.8 g/dL (12.0-18.0); MEAN CELL VOLUME 84.4 fl (80.0-94.0); MEAN CORPUSCULAR HEMOGLOBIN 26.9 pg (27.0-31.0); MEAN CORPUSCULAR HGB CONC 31.8 g/dL (33.0-37.0); RBC 3.27 Mil/uL (4.40-5.90); RED CELL DISTRIBUTION WIDTH 19.3 % (11.5-14.5); WHITE BLOOD COUNT 17.7 K/uL (4.8-10.8)
[2018-06-27 06:15] LABS: CALCIUM 8.5 mg/dL (8.4-10.2)
--- NOTE | 2018-06-27 09:38 | RAD ---
Date of service: 06/27/2018 HISTORY: pulmonary vascular congestion COMPARISON: Comparison chest 06/24/2018. FINDINGS: LUNGS: Suspect minimal chronic compensated pulmonary venous congestive changes. Minor right basilar atelectasis and or scarring changes with slight blunting right CP angle. PLEURA: No significant pleural effusion identified, no pneumothorax apparent. CARDIOVASCULAR: No obvious aortic atherosclerotic calcification identified.. Cardiomegaly. No pulmonary vascular congestion. OSSEOUS STRUCTURES: No significant abnormalities. VISUALIZED UPPER ABDOMEN: Normal. OTHER FINDINGS: None. IMPRESSION: Suspect minimal chronic compensated pulmonary venous congestive changes. Minor right basilar atelectasis and or scarring changes with slight blunting right CP angle.
[2018-06-27] MEDS: Potassium Chloride 20 mEq ER Tab PO SCH ×2 (09:53→17:54)
[2018-06-27] MEDS: Multivitamin Vitamin B Complex (Nephro-Vite) Tab PO SCH (09:53)
[2018-06-27] MEDS: metOLazone 2.5 MG TAB PO SCH ×2 (09:53→17:54)
--- NOTE | 2018-06-27 10:29 | CP.PCM.PN ---
Subjective - Date & Time of Evaluation Date of Evaluation: 06/27/18 Time of Evaluation: 10:29 - Subjective Subjective: Patient awake and conscious not in acute distress still edematous Vital signs noted to be stable Appetite reported to be acceptable Objective - Vital Signs/Intake and Output Vital Signs (last 24 hours): Temp Pulse Resp BP Pulse Ox 99.5 F 97 H 18 146/65 96 06/27/18 08:15 06/27/18 08:15 06/27/18 08:15 06/27/18 09:52 06/27/18 08:15 - Medications Medications: Current Medications Acetylcysteine (Acetylcysteine 20%) 3 ml PO BID [facility] Stop: 06/27/18 17:01 Last Admin: 06/26/18 17:28 Dose: 3 ml Atorvastatin Calcium (Lipitor) 10 mg PO HS [facility] Last Admin: 06/27/18 01:45 Dose: 10 mg Epoetin Tommie (Procrit) 4,000 unit SC TTS [facility] Ergocalciferol (Drisdol 50,000 Intl Units Cap) 1 cap PO QWK [facility] Ferrous Sulfate (Feosol) 325 mg PO Q8 [facility] Last Admin: 06/27/18 09:53 Dose: 325 mg Furosemide (Lasix) 40 mg IV BID [facility] Last Admin: 06/27/18 09:52 Dose: 40 mg Hydralazine HCl (Apresoline) 50 mg PO Q8 [facility] Last Admin: 06/27/18 09:53 Dose: 50 mg Cefazolin Sodium 1 gm/ Sodium (Chloride) 100 mls @ 100 mls/hr IVPB Q12 [facility]; Protocol Last Admin: 06/27/18 09:51 Dose: 100 mls/hr Dextrose/Sodium Chloride (Dextrose 5%/0.45% Ns 1000 Ml) 1,000 mls @ 100 mls/hr IV .Q10H [facility] Stop: 06/28/18 10:24 Metolazone (Zaroxolyn) 2.5 mg PO BID [facility] Last Admin: 06/27/18 09:53 Dose: 2.5 mg Metoprolol Tartrate (Lopressor) 25 mg PO Q12 [facility] Last Admin: 06/27/18 09:53 Dose: 25 mg Potassium Chloride (K-Dur 20 Meq Er Tab) 20 meq PO BID [facility] Last Admin: 06/27/18 09:53 Dose: 20 meq Tamsulosin HCl (Flomax) 0.4 mg PO DAILY [facility] Last Admin: 06/27/18 09:53 Dose: 0.4 mg Thiamine HCl (Vitamin B1 Tab) 100 mg PO DAILY [facility] Last Admin: 06/27/18 09:53 Dose: 100 mg Vitamin B Complex/Vit C/Folic Acid (Nephro-Wilma) 1 tab PO DAILY [facility] Last Admin: 06/27/18 09:53 Dose: 1 tab Zolpidem Tartrate (Ambien) 5 mg PO HS [facility] Last Admin: 06/27/18 02:03 Dose: 5 mg - Labs Labs: 06/27/18 05:45 06/27/18 05:45 PT 14.2 Seconds (9.8-13.1) H 06/24/18 10:46 INR 1.3 06/24/18 10:46 APTT 27.6 Seconds (25.6-37.1) 06/24/18 10:46 - Constitutional Appears: No Acute Distress - Eye Exam Eye Exam: Conjunctival injection - ENT Exam ENT Exam: Mucous Membranes Moist - Neck Exam Neck Exam: absent: Lymphadenopathy - Respiratory Exam Respiratory Exam: NORMAL BREATHING PATTERN. absent: Chest Wall Tenderness - Cardiovascular Exam Cardiovascular Exam: absent: Gallop, JVD, Rubs - GI/Abdominal Exam GI & Abdominal Exam: Soft, Normal Bowel Sounds - Extremities Exam Extremities Exam: absent: Calf Tenderness - Back Exam Back Exam: absent: CVA tenderness (L), CVA tenderness (R) - Neurological Exam Neurological Exam: Alert - Skin Skin Exam: absent: Cyanosis Assessment and Plan (1) Chronic kidney disease, stage IV (severe) Assessment & Plan: Patient has underlying chronic kidney disease stage IV and he presented with anasarca including leg swelling abdominal ascites upper extremity swollen. Urinalysis did not show proteinuria Etiology of chronic kidney disease is not clear whether related to hypertensive chronic kidney disease number From previous ultrasound of the kidney showed right suprarenal mass Plan Continue Lasix intravenously twice daily 40 mg and also he is on Zaroxolyn as well. Daily weight to estimate the response Mucomyst was started yesterday Patient is going for CT scan with IV contrast he is agreeable for the risk versus leaving suprarenal mass without further evaluation especially that his condition is about to need dialysis any time. IV fluid to be started now before he goes to CT scan and continue for about [address] scan Status: Chronic (2) HTN (hypertension) Status: Acute (3) Hand swelling Status: Acute
[2018-06-27] MEDS ORDERED: Potassium Chloride 20 mEq ER Tab PO ONE (10:34)
[2018-06-27] MEDS: Epoetin Alfa 4000 UNIT/ML Inj SC SCH (11:43)
[2018-06-27] MEDS: Dextrose 5%/0.45% NS 1,000 ML IV SCH ×2 (11:52→21:44)
--- NOTE | 2018-06-27 12:23 | CARD ---
APPROVED REPORT Date of service: 06/27/2018 EKG Measurement Heart [id number] <Conclusion> Atrial fibrillation with premature ventricular or aberrantly conducted complexes Low voltage QRS Septal infarct, age undetermined Abnormal ECG
--- NOTE | 2018-06-27 12:34 | CP.PCM.PN ---
Subjective - Date & Time of Evaluation Date of Evaluation: 06/27/18 Time of Evaluation: 11:20 - Subjective Subjective: patient feels weak. denies chest pain. undergoing evaluation of suprarenal mass Objective - Vital Signs/Intake and Output Vital Signs (last 24 hours): Temp Pulse Resp BP Pulse Ox 98.5 F 80 18 133/69 97 06/27/18 12:04 06/27/18 12:04 06/27/18 12:04 06/27/18 12:04 06/27/18 12:04 - Medications Medications: Current Medications Acetaminophen (Tylenol 325mg Tab) 650 mg PO Q6 PRN PRN Reason: Pain, Mild (1-3) Acetylcysteine (Acetylcysteine 20%) 3 ml PO BID [facility] Stop: 06/27/18 17:01 Last Admin: 06/26/18 17:28 Dose: 3 ml Atorvastatin Calcium (Lipitor) 10 mg PO HS [facility] Last Admin: 06/27/18 01:45 Dose: 10 mg Epoetin Tommie (Procrit) 4,000 unit SC TTS [facility] Last Admin: 06/27/18 11:43 Dose: 4,000 unit Ergocalciferol (Drisdol 50,000 Intl Units Cap) 1 cap PO QWK [facility] Ferrous Sulfate (Feosol) 325 mg PO Q8 [facility] Last Admin: 06/27/18 09:53 Dose: 325 mg Furosemide (Lasix) 40 mg IV BID [facility] Last Admin: 06/27/18 09:52 Dose: 40 mg Hydralazine HCl (Apresoline) 50 mg PO Q8 [facility] Last Admin: 06/27/18 09:53 Dose: 50 mg Cefazolin Sodium 1 gm/ Sodium (Chloride) 100 mls @ 100 mls/hr IVPB Q12 [facility]; Protocol Last Admin: 06/27/18 09:51 Dose: 100 mls/hr Dextrose/Sodium Chloride (Dextrose 5%/0.45% Ns 1000 Ml) 1,000 mls @ 100 mls/hr IV .Q10H [facility] Stop: 06/28/18 10:24 Last Admin: 06/27/18 11:52 Dose: 100 mls/hr Metolazone (Zaroxolyn) 2.5 mg PO BID [facility] Last Admin: 06/27/18 09:53 Dose: 2.5 mg Metoprolol Tartrate (Lopressor) 25 mg PO Q12 [facility] Last Admin: 06/27/18 09:53 Dose: 25 mg Potassium Chloride (K-Dur 20 Meq Er Tab) 20 meq PO BID [facility] Last Admin: 06/27/18 09:53 Dose: 20 meq Tamsulosin HCl (Flomax) 0.4 mg PO DAILY [facility] Last Admin: 06/27/18 09:53 Dose: 0.4 mg Thiamine HCl (Vitamin B1 Tab) 100 mg PO DAILY [facility] Last Admin: 06/27/18 09:53 Dose: 100 mg Vitamin B Complex/Vit C/Folic Acid (Nephro-Wilma) 1 tab PO DAILY [facility] Last Admin: 06/27/18 09:53 Dose: 1 tab Zolpidem Tartrate (Ambien) 5 mg PO HS [facility] Last Admin: 06/27/18 02:03 Dose: 5 mg - Labs Labs: 06/27/18 05:45 06/27/18 05:45 PT 14.2 Seconds (9.8-13.1) H 06/24/18 10:46 INR 1.3 06/24/18 10:46 APTT 27.6 Seconds (25.6-37.1) 06/24/18 10:46 - Constitutional Appears: Chronically Ill - Head Exam Head Exam: NORMAL INSPECTION - Eye Exam Eye Exam: Normal appearance - ENT Exam ENT Exam: Mucous Membranes Moist - Neck Exam Neck Exam: Full ROM - Respiratory Exam Respiratory Exam: Decreased Breath Sounds - Cardiovascular Exam Cardiovascular Exam: REGULAR RHYTHM - GI/Abdominal Exam GI & Abdominal Exam: Normal Bowel Sounds - Rectal Exam Rectal Exam: Deferred - Extremities Exam Extremities Exam: absent: Pedal Edema - Back Exam Back Exam: NORMAL INSPECTION - Neurological Exam Neurological Exam: Alert - Psychiatric Exam Psychiatric exam: Normal Affect - Skin Skin Exam: Normal Color Assessment and Plan (1) Atrial fibrillation Assessment & Plan: rate controlled. not on anticoagulation due to previous bleeding Status: Acute (2) Chronic kidney disease, stage IV (severe) Assessment & Plan: renal following Status: Chronic (3) HTN (hypertension) Assessment & Plan: blood pressure control Status: Acute
--- NOTE | 2018-06-27 17:27 | CP.PCM.PN ---
Subjective - Date & Time of Evaluation Date of Evaluation: 06/27/18 Time of Evaluation: 11:00 - Subjective Subjective: patient seen and examined at bedside. Interim events noted No complaints offered at this time denies cp/sob/fever/chills. available diagnostic data reviewed Objective Vital Signs Stable - Constitutional Appears: Non-toxic, No Acute Distress - Head Exam Head Exam: NORMAL INSPECTION - Eye Exam Eye Exam: Normal appearance - Respiratory Exam Respiratory Exam: NORMAL BREATHING PATTERN - Cardiovascular Exam Cardiovascular Exam: +S1, +S2 - GI/Abdominal Exam GI & Abdominal Exam: ascites - Neurological Exam Neurological Exam: Alert, Awake - Psychiatric Exam Psychiatric exam: Normal Affect, Normal Mood - Skin Skin Exam: Normal Color, Warm Assessment and Plan monitor vitals monitor labs Cont meds Cont tx consultants appreciated input CT for right suprarenal mass today rest of plan as ordered Assessment and Plan (1) Adrenal mass, right Status: Acute (2) Atrial fibrillation Status: Acute (3) Chronic kidney disease, stage IV (severe) Status: Chronic (4) HTN (hypertension) Status: Acute
[2018-06-27 22:45] LABS: SQUAMOUS EPITHIAL < 1 /hpf (0-5); URINE BILIRUBIN NEGATIVE (NEGATIVE); URINE BLOOD NEGATIVE (NEGATIVE); URINE CLARITY CLEAR (Clear); URINE COLOR YELLOW (YELLOW); URINE GLUCOSE (UA) NEG (NEGATIVE); URINE LEUKOCYTE ESTERASE NEG Leu/uL (Negative); URINE PROTEIN NEGATIVE (NEGATIVE); URINE UROBILINOGEN 0.2-1.0 mg/dL (0.2-1.0)
[2018-06-28] MEDS: Dextrose 5%/0.45% NS 1,000 ML IV SCH (03:28)
[2018-06-28] MEDS: metOLazone 2.5 MG TAB PO SCH ×2 (09:52→18:29)
[2018-06-28] MEDS: Multivitamin Vitamin B Complex (Nephro-Vite) Tab PO SCH (09:52)
[2018-06-28] MEDS: Potassium Chloride 20 mEq ER Tab PO SCH ×2 (09:52→18:30)
[2018-06-28] MEDS: ceFAZolin 1 GM in Sodium Chloride 0.9% 100 ML IVPB SCH (09:55)
--- NOTE | 2018-06-28 10:58 | CP.PCM.PN ---
Subjective - Date & Time of Evaluation Date of Evaluation: 06/28/18 Time of Evaluation: 10:58 - Subjective Subjective: Patient awake and conscious not in acute distress He appears to be comfortable and stable no chest pain no shortness of breath Nausea no vomiting Objective - Vital Signs/Intake and Output Vital Signs (last 24 hours): Temp Pulse Resp BP Pulse Ox 100.4 F H 111 H 20 149/75 98 06/28/18 08:40 06/28/18 08:40 06/28/18 08:40 06/28/18 09:54 06/28/18 09:42 - Medications Medications: Current Medications Acetaminophen (Tylenol 325mg Tab) 650 mg PO Q6 PRN PRN Reason: Pain, Mild (1-3) Atorvastatin Calcium (Lipitor) 10 mg PO HS [facility] Last Admin: 06/27/18 21:33 Dose: 10 mg Epoetin Tommie (Procrit) 4,000 unit SC TTS [facility] Last Admin: 06/27/18 11:43 Dose: 4,000 unit Ergocalciferol (Drisdol 50,000 Intl Units Cap) 1 cap PO QWK [facility] Ferrous Sulfate (Feosol) 325 mg PO Q8 [facility] Last Admin: 06/28/18 09:53 Dose: 325 mg Furosemide (Lasix) 40 mg IV BID [facility] Last Admin: 06/28/18 09:54 Dose: 40 mg Hydralazine HCl (Apresoline) 50 mg PO Q8 [facility] Last Admin: 06/28/18 09:53 Dose: 50 mg Cefazolin Sodium 1 gm/ Sodium (Chloride) 100 mls @ 100 mls/hr IVPB Q12 [facility]; Protocol Last Admin: 06/28/18 09:55 Dose: 100 mls/hr Metolazone (Zaroxolyn) 2.5 mg PO BID [facility] Last Admin: 06/28/18 09:52 Dose: 2.5 mg Metoprolol Tartrate (Lopressor) 25 mg PO Q12 [facility] Last Admin: 06/28/18 09:53 Dose: 25 mg Potassium Chloride (K-Dur 20 Meq Er Tab) 20 meq PO BID [facility] Last Admin: 06/28/18 09:52 Dose: 20 meq Tamsulosin HCl (Flomax) 0.4 mg PO DAILY [facility] Last Admin: 06/28/18 09:53 Dose: 0.4 mg Thiamine HCl (Vitamin B1 Tab) 100 mg PO DAILY [facility] Last Admin: 06/28/18 09:53 Dose: 100 mg Vitamin B Complex/Vit C/Folic Acid (Nephro-Wilma) 1 tab PO DAILY [facility] Last Admin: 06/28/18 09:52 Dose: 1 tab - Labs Labs: 06/27/18 05:45 06/27/18 05:45 PT 14.2 Seconds (9.8-13.1) H 06/24/18 10:46 INR 1.3 06/24/18 10:46 APTT 27.6 Seconds (25.6-37.1) 06/24/18 10:46 - Constitutional Appears: No Acute Distress - Eye Exam Eye Exam: Conjunctival injection - ENT Exam ENT Exam: Mucous Membranes Moist - Neck Exam Neck Exam: absent: Lymphadenopathy - Respiratory Exam Respiratory Exam: NORMAL BREATHING PATTERN. absent: Chest Wall Tenderness - Cardiovascular Exam Cardiovascular Exam: Irregular Rhythm. absent: Gallop, JVD, Rubs - GI/Abdominal Exam GI & Abdominal Exam: Soft, Normal Bowel Sounds - Extremities Exam Extremities Exam: absent: Calf Tenderness - Back Exam Back Exam: absent: CVA tenderness (L), CVA tenderness (R) - Neurological Exam Neurological Exam: Alert - Psychiatric Exam Psychiatric exam: Normal Affect - Skin Skin Exam: absent: Cyanosis Assessment and Plan (1) Chronic kidney disease, stage IV (severe) Assessment & Plan: Assessment & Plan: Patient has underlying chronic kidney disease stage IV and he presented with anasarca including leg swelling abdominal ascites upper extremity swollen. Urinalysis did not show proteinuria Etiology of chronic kidney disease is not clear whether related to hypertensive chronic kidney disease number From previous ultrasound of the kidney showed right suprarenal mass Anemia Plan Continue Lasix intravenously twice daily 40 mg and also he is on Zaroxolyn . Daily weight to estimate the response Mucomyst was started Patient is going for CT scan of the abdomen with IV contrast and he is going to have follow-up with hemodialysis because of the risk of intravenous contrast and the radiologists are not willing to do without dialysis. EPO for the anemia Consent was taken from the patient and the daughter was called and explained the whole situation and the dialysis issue Order was given. Patient waiting to go for temporary dialysis catheter. Patient deemed to be stable to go for dialysis post IV contrast. Also patient is scheduled to have kidney biopsy sometime early next week Status: Chronic (2) HTN (hypertension) Status: Acute (3) Hand swelling Status: Acute
[2018-06-28] MEDS ORDERED: Lidocaine 1% Inj (20ml) ONE (11:39)
--- NOTE | 2018-06-28 12:31 | PCM.SURG1 ---
Surgeon's Initial Post Op Note - Surgeon's Notes Surgeon: Keagan Quiros MD Manager Sound: NONE Type of Anesthesia: Local Pre-Operative Diagnosis: Renal failure Operative Findings: US showed distended right IJV Post-Operative Diagnosis: Renal failure Operation Performed: Nontunneled HD catheter placement right IJV Specimen/Specimens Removed: NOne Estimated Blood Loss: EBL {In ML}: 2 Blood Products Given: N/A Drains Used: No Drains Post-Op Condition: Fair Date of Surgery/Procedure: 06/28/18 Time of Surgery/Procedure: 12:30
[2018-06-28] MEDS ORDERED: Iohexol 240 (50 ml) IVP ONE (13:12)
[2018-06-28] MEDS ORDERED: Sodium Chloride 0.9% 50 ML IV ONE (17:35)
[2018-06-28] MEDS ORDERED: Iohexol 300 100 ML IJ ONE (17:35)
--- NOTE | 2018-06-28 18:42 | CT ---
Date of service: 06/28/2018 PROCEDURE: CT Abdomen and Pelvis with contrast HISTORY: renal mass on us- requested by nephrology COMPARISON: None. TECHNIQUE: Intravenous contrast dose: 95 cc Omnipaque 300. Radiation dose: Total exam DLP = 2601.56 mGy-cm. This CT exam was performed using one or more of the following dose reduction techniques: Automated exposure control, adjustment of the mA and/or kV according to patient size, and/or use of iterative reconstruction technique. FINDINGS: LOWER THORAX: Incompletely visualized bilateral pleural effusions right larger than left with associated compressive atelectasis. LIVER: Unremarkable. No gross lesion or ductal dilatation. GALLBLADDER AND BILE DUCTS: Unremarkable. PANCREAS: Unremarkable. No gross lesion or ductal dilatation. SPLEEN: Unremarkable. ADRENALS: Unremarkable. No mass. KIDNEYS AND URETERS: Unremarkable. No hydronephrosis. No solid mass. VASCULATURE: Unremarkable. No aortic aneurysm. Atherosclerotic calcification and mural plaque present. Findings are seen throughout the aorta BOWEL: Thickening of the wall of the ascending colon. Relative sparing of the transverse colon. The descending colon is unaffected. Diverticulosis without an acute inflammatory component or other associated pathologic process. APPENDIX: A normal appendix is visualized in it's entirety. PERITONEUM: Moderate volume ascites including fluid extending into the left inguinal canal. No free air. LYMPH NODES: Unremarkable. No enlarged lymph nodes. BLADDER: Unremarkable. REPRODUCTIVE: Moderately enlarged prostate. Large hydroceles bilaterally. BONES: No acute fracture. OTHER FINDINGS: Diffuse edema and anasarca IMPRESSION: Colitis, moderate primarily affecting the ascending colon. Moderate volume intra-abdominal ascites. Considerable edema and anasarca. No renal mass identified nor is there evidence of calculus disease, obstructive uropathy or other, additional genitourinary abnormality. Incomplete visualization of bilateral pleural effusions and compressive atelectasis.
[2018-06-29] MEDS: ceFAZolin 1 GM in Sodium Chloride 0.9% 100 ML IVPB SCH ×2 (00:19→09:10)
[2018-06-29] MEDS: Multivitamin Vitamin B Complex (Nephro-Vite) Tab PO SCH (09:08)
[2018-06-29] MEDS: Potassium Chloride 20 mEq ER Tab PO SCH ×2 (09:08→16:34)
[2018-06-29] MEDS: metOLazone 2.5 MG TAB PO SCH ×2 (09:09→16:34)
[2018-06-29 12:39] LABS: HEPATITIS B SURFACE AG Negative (NEGATIVE)
[2018-06-29 12:44] LABS: HEPATITIS B CORE AB NEGATIVE (NEGATIVE)
[2018-06-29 17:16] LABS: HEPATITIS B SURFACE AG Negative (NEGATIVE)
[2018-06-29 17:21] LABS: HEPATITIS B CORE AB NEGATIVE (NEGATIVE)
[2018-06-29 17:33] LABS: HEPATITIS C ANTIBODY NEGATIVE (NEGATIVE)
--- NOTE | 2018-06-29 18:39 | CP.PCM.PN ---
Subjective - Date & Time of Evaluation Date of Evaluation: 06/29/18 Time of Evaluation: 18:36 - Subjective Subjective: Nephrology Consultation Note Assessment: Stable Acute Kidney Injury (N17.9) with refractory fluid overload Rt side heart failure Hypertensive Chronic Kidney Disease (I12.9) Chronic Kidney Disease (N18.4) Stage 4 Anemia (D64.9), hydrocoele Plan plan for 2nd HD session today Hypertension control with meds as ordered. Maintain hemodynamics stable. Avoid hypotension. Patient not on ACEI/ARB due to recent SHABNAM Monitor Input/Output, daily weights and renal function with basic metabolic panel continue with diuretics pt on epogen with HD. also on iron , MVI supplement lytes as needed monitor for renal recovery consider urology eval for hydrocoele Dose meds/antibiotics for reduced GFR. Avoid fleets enema/magnesium based laxatives. Avoid nephrotoxins/NSAIDs/ iodinated contrast (unless needed emergently) Glycemic control Further work up for as per primary team Thanks for allowing me to participate in care of your patient. Will follow pat ient with you. Please call if any Qs Dr Moustapha Trinidad Office: [phone] Subjective: Noted events overnight. Patients feels sick Denies chest pain, palpitation, shortness of breath, has improved leg swelling. c/o scrotal swelling All other negative Physical Examination: General Appearance: uncomfortable, in no acute respiratory distress, co- operative . Vitals reviewed and noted as below Head; Atraumatic, normocephalic ENT: no ulcers no thrush. Tongue is midline. Oropharynx: no rash or ulcers. EYES: Pupils are equal, round and reactive to light accommodation. Eye muscles and extraocular movement intact. Sclera is anicteric. Neck; supple no lymphadenopathy, no thyromegaly or bruit Lungs: Normal respiratory rate/effort. Breath sounds bilateral reduced at bases Heart: Normal rate. s1s2 normal. No rub or gallop. Extremities: 1-2+ edema. No varicose veins Neurological: Patient is alert, awake and oriented to person, place and time. No focal deficit. Strength bilateral appropriate and equal Skin: Warm and dry. Normal turgor. No rash. Palpitation: Normal elasticity for age Abdomen: Abdomen is soft. Bowel sounds +. There is no abdominal tenderness, no guarding/rigidity no organomegaly Psych: normal insight and normal affect/mood MSK: no joint tenderness or swelling. Digits and nails normal, no deformity : kidney or bladder not palpable. has scrotal swelling Labs/imaging reviewed. Past medical history, past surgical history, family history, social history, allergy reviewed and noted as below Family hx: no hx of CKD. Rest non-contributory Objective - Vital Signs/Intake and Output Vital Signs (last 24 hours): Temp Pulse Resp BP Pulse Ox 97.8 F 85 16 146/66 98 06/29/18 16:14 06/29/18 16:14 06/29/18 16:14 06/29/18 16:14 06/29/18 16:14 - Medications Medications: Current Medications Acetaminophen (Tylenol 325mg Tab) 650 mg PO Q6 PRN PRN Reason: Pain, Mild (1-3) Atorvastatin Calcium (Lipitor) 10 mg PO HS [facility] Last Admin: 06/29/18 00:21 Dose: 10 mg Epoetin Tommie (Procrit) 4,000 unit SC TTS [facility] Last Admin: 06/27/18 11:43 Dose: 4,000 unit Ergocalciferol (Drisdol 50,000 Intl Units Cap) 1 cap PO QWK [facility] Ferrous Sulfate (Feosol) 325 mg PO Q8 [facility] Last Admin: 06/29/18 16:33 Dose: 325 mg Furosemide (Lasix) 40 mg IV BID [facility] Last Admin: 06/29/18 16:34 Dose: Not Given Hydralazine HCl (Apresoline) 50 mg PO Q8 [facility] Last Admin: 06/29/18 16:28 Dose: Not Given Cefazolin Sodium 1 gm/ Sodium (Chloride) 100 mls @ 100 mls/hr IVPB Q12 [facility]; Protocol Last Admin: 06/29/18 09:10 Dose: 100 mls/hr Metolazone (Zaroxolyn) 2.5 mg PO BID [facility] Last Admin: 06/29/18 16:34 Dose: Not Given Metoprolol Tartrate (Lopressor) 25 mg PO Q12 [facility] Last Admin: 06/29/18 09:08 Dose: Not Given Potassium Chloride (K-Dur 20 Meq Er Tab) 20 meq PO BID [facility] Last Admin: 06/29/18 16:34 Dose: 20 meq Tamsulosin HCl (Flomax) 0.4 mg PO DAILY [facility] Last Admin: 06/29/18 09:08 Dose: 0.4 mg Thiamine HCl (Vitamin B1 Tab) 100 mg PO DAILY [facility] Last Admin: 06/29/18 09:09 Dose: 100 mg Vitamin B Complex/Vit C/Folic Acid (Nephro-Wilma) 1 tab PO DAILY [facility] Last Admin: 06/29/18 09:08 Dose: 1 tab - Labs Labs: 06/27/18 05:45 06/27/18 05:45 PT 14.2 Seconds (9.8-13.1) H 06/24/18 10:46 INR 1.3 06/24/18 10:46 APTT 27.6 Seconds (25.6-37.1) 06/24/18 10:46
[2018-06-30] MEDS: Epoetin Alfa 4000 UNIT/ML Inj SC SCH (00:53)
[2018-06-30] MEDS: ceFAZolin 1 GM in Sodium Chloride 0.9% 100 ML IVPB SCH ×2 (01:30→09:20)
[2018-06-30] MEDS: Potassium Chloride 20 mEq ER Tab PO SCH ×2 (09:17→18:05)
[2018-06-30] MEDS: metOLazone 2.5 MG TAB PO SCH ×2 (09:19→18:06)
[2018-06-30] MEDS: Multivitamin Vitamin B Complex (Nephro-Vite) Tab PO SCH (09:19)
--- NOTE | 2018-06-30 12:53 | CP.PCM.PN ---
Subjective - Date & Time of Evaluation Date of Evaluation: 06/30/18 Time of Evaluation: 12:51 - Subjective Subjective: Nephrology Consultation Note Assessment: Stable Acute Kidney Injury (N17.9) with refractory fluid overload Rt side heart failure Hypertensive Chronic Kidney Disease (I12.9) Chronic Kidney Disease (N18.4) Stage 4 Anemia (D64.9), hydrocoele Plan had 2nd HD session yesterday, no acute need today. no new labs, ordered for AM Hypertension control with meds as ordered. Maintain hemodynamics stable. Avoid hypotension. Patient not on ACEI/ARB due to recent SHABNAM Monitor Input/Output, daily weights and renal function with basic metabolic panel continue with diuretics pt on epogen. also on iron , MVI supplement lytes as needed monitor for renal recovery consider urology eval for hydrocoele Dose meds/antibiotics for reduced GFR. Avoid fleets enema/magnesium based laxatives. Avoid nephrotoxins/NSAIDs/ iodinated contrast (unless needed emergently) Glycemic control Further work up for as per primary team Thanks for allowing me to participate in care of your patient. Will follow patient with you. Please call if any Qs Dr Moustapha Trinidad Office: [phone] Subjective: Noted events overnight. Patients feels sick Denies chest pain, palpitation, shortness of breath, has improved leg swelling. c/o scrotal swelling All other negative Physical Examination: General Appearance: uncomfortable, in no acute respiratory distress, co- operative . Vitals reviewed and noted as below Head; Atraumatic, normocephalic ENT: no ulcers no thrush. Tongue is midline. Oropharynx: no rash or ulcers. EYES: Pupils are equal, round and reactive to light accommodation. Eye muscles and extraocular movement intact. Sclera is anicteric. Neck; supple no lymphadenopathy, no thyromegaly or bruit Lungs: Normal respiratory rate/effort. Breath sounds bilateral reduced at bases Heart: Normal rate. s1s2 normal. No rub or gallop. Extremities: 1-2+ edema. No varicose veins. LUE edema noted (Sono neg for DVT) Neurological: Patient is alert, awake and oriented to person, place and time. No focal deficit. Strength bilateral appropriate and equal Skin: Warm and dry. Normal turgor. No rash. Palpitation: Normal elasticity for age Abdomen: Abdomen is soft. Bowel sounds +. There is no abdominal tenderness, no guarding/rigidity no organomegaly Psych: normal insight and normal affect/mood MSK: no joint tenderness or swelling. Digits and nails normal, no deformity : kidney or bladder not palpable. has scrotal swelling Labs/imaging reviewed. Past medical history, past surgical history, family history, social history, allergy reviewed and noted as below Family hx: no hx of CKD. Rest non-contributory Objective - Vital Signs/Intake and Output Vital Signs (last 24 hours): Temp Pulse Resp BP Pulse Ox 98.9 F 83 18 154/66 H 97 06/30/18 09:00 06/30/18 09:18 06/30/18 09:00 06/30/18 09:18 06/30/18 09:00 - Medications Medications: Current Medications Acetaminophen (Tylenol 325mg Tab) 650 mg PO Q6 PRN PRN Reason: Pain, Mild (1-3) Atorvastatin Calcium (Lipitor) 10 mg PO HS [facility] Last Admin: 06/30/18 01:31 Dose: 10 mg Epoetin Tommie (Procrit) 4,000 unit SC TTS [facility] Last Admin: 06/30/18 00:53 Dose: 4,000 unit Ergocalciferol (Drisdol 50,000 Intl Units Cap) 1 cap PO QWK [facility] Ferrous Sulfate (Feosol) 325 mg PO Q8 [facility] Last Admin: 06/30/18 09:17 Dose: 325 mg Furosemide (Lasix) 40 mg IV BID [facility] Last Admin: 06/30/18 09:17 Dose: 40 mg Hydralazine HCl (Apresoline) 50 mg PO Q8 [facility] Last Admin: 06/30/18 09:16 Dose: 50 mg Metolazone (Zaroxolyn) 2.5 mg PO BID [facility] Last Admin: 06/30/18 09:19 Dose: 2.5 mg Metoprolol Tartrate (Lopressor) 25 mg PO Q12 [facility] Last Admin: 06/30/18 09:18 Dose: 25 mg Potassium Chloride (K-Dur 20 Meq Er Tab) 20 meq PO BID [facility] Last Admin: 06/30/18 09:17 Dose: 20 meq Tamsulosin HCl (Flomax) 0.4 mg PO DAILY [facility] Last Admin: 06/30/18 09:17 Dose: 0.4 mg Thiamine HCl (Vitamin B1 Tab) 100 mg PO DAILY [facility] Last Admin: 06/30/18 09:19 Dose: 100 mg Vitamin B Complex/Vit C/Folic Acid (Nephro-Wilma) 1 tab PO DAILY [facility] Last Admin: 06/30/18 09:19 Dose: 1 tab - Labs Labs: 06/27/18 05:45 06/27/18 05:45 PT 14.2 Seconds (9.8-13.1) H 06/24/18 10:46 INR 1.3 06/24/18 10:46 APTT 27.6 Seconds (25.6-37.1) 06/24/18 10:46
[2018-06-30 14:29] LABS: BASO # 0.1 K/uL (0.0-0.2); BASO % 0.3 % (0.0-2.0); EOS # 0.1 K/uL (0.0-0.7); EOS % 0.5 % (0.0-4.0); HEMOGLOBIN 8.8 g/dL (12.0-18.0); LYMPH # 1.1 K/uL (1.0-4.3); LYMPH % 6.6 % (20.0-40.0); MEAN CELL VOLUME 85.1 fl (80.0-94.0); MEAN CORPUSCULAR HEMOGLOBIN 26.8 pg (27.0-31.0); MEAN CORPUSCULAR HGB CONC 31.5 g/dL (33.0-37.0); MEAN PLATELET VOLUME 9.4 fl (7.2-11.7); MONO % 6.1 % (0.0-10.0); NEUT # 14.2 K/uL (1.8-7.0); NEUT % 86.5 % (50.0-75.0); PLATELET COUNT 232 K/uL (130-400); RBC 3.28 Mil/uL (4.40-5.90); RED CELL DISTRIBUTION WIDTH 19.1 % (11.5-14.5); WHITE BLOOD COUNT 16.4 K/uL (4.8-10.8)
[2018-06-30 15:20] LABS: ALB/GLOB RATIO 0.8 (1.0-2.1); ALBUMIN 2.7 g/dL (3.5-5.0); CALCIUM 8.3 mg/dL (8.4-10.2)
--- NOTE | 2018-06-30 15:33 | CP.PCM.PN ---
Subjective - Date & Time of Evaluation Date of Evaluation: 06/30/18 Time of Evaluation: 15:39 - Subjective Subjective: I D NOTE LABS REVIEWED .HAVE STARTED IV [facility] Objective - Vital Signs/Intake and Output Vital Signs (last 24 hours): Temp Pulse Resp BP Pulse Ox 98.5 F 65 20 119/56 L 97 06/30/18 13:00 06/30/18 13:00 06/30/18 13:00 06/30/18 13:00 06/30/18 13:00 - Medications Medications: Current Medications Acetaminophen (Tylenol 325mg Tab) 650 mg PO Q6 PRN PRN Reason: Pain, Mild (1-3) Atorvastatin Calcium (Lipitor) 10 mg PO HS [facility] Last Admin: 06/30/18 01:31 Dose: 10 mg Epoetin Tommie (Procrit) 4,000 unit SC TTS [facility] Last Admin: 06/30/18 00:53 Dose: 4,000 unit Ergocalciferol (Drisdol 50,000 Intl Units Cap) 1 cap PO QWK [facility] Ferrous Sulfate (Feosol) 325 mg PO Q8 [facility] Last Admin: 06/30/18 09:17 Dose: 325 mg Furosemide (Lasix) 40 mg IV BID [facility] Last Admin: 06/30/18 09:17 Dose: 40 mg Hydralazine HCl (Apresoline) 50 mg PO Q8 [facility] Last Admin: 06/30/18 09:16 Dose: 50 mg Metronidazole 250 mg/ (Miscellaneous) 50 mls @ 50 mls/hr IVPB Q8 [facility]; Protocol Meropenem 500 mg/ Sodium (Chloride) 100 mls @ 100 mls/hr IVPB Q24H [facility]; Protocol Metolazone (Zaroxolyn) 2.5 mg PO BID [facility] Last Admin: 06/30/18 09:19 Dose: 2.5 mg Metoprolol Tartrate (Lopressor) 25 mg PO Q12 [facility] Last Admin: 06/30/18 09:18 Dose: 25 mg Potassium Chloride (K-Dur 20 Meq Er Tab) 20 meq PO BID [facility] Last Admin: 06/30/18 09:17 Dose: 20 meq Tamsulosin HCl (Flomax) 0.4 mg PO DAILY [facility] Last Admin: 06/30/18 09:17 Dose: 0.4 mg Thiamine HCl (Vitamin B1 Tab) 100 mg PO DAILY [facility] Last Admin: 06/30/18 09:19 Dose: 100 mg Vitamin B Complex/Vit C/Folic Acid (Nephro-Wilma) 1 tab PO DAILY [facility] Last Admin: 06/30/18 09:19 Dose: 1 tab - Labs Labs: 06/30/18 13:22 06/30/18 14:22 PT 14.2 Seconds (9.8-13.1) H 06/24/18 10:46 INR 1.3 06/24/18 10:46 APTT 27.6 Seconds (25.6-37.1) 06/24/18 10:46
[2018-06-30 16:30] LABS: ERYTHROCYTE SEDIMENTATION RATE 113 mm/hr (0-20)
[2018-06-30 16:42] LABS: ANISOCYTOSIS SLIGHT; LYMPHOCYTE 6 % (20-50); MONOCYTE 4 % (0-10); NEUTROPHIL 90 % (42-75); POIKILOCYTOSIS SLIGHT; TOTAL CELLS COUNTED 100
[2018-06-30 16:43] LABS: OVALOCYTES SLIGHT; SCHISTOCYTES SLIGHT
[2018-06-30 16:47] LABS: PLATELET ESTIMATE NORMAL (NORMAL)
[2018-06-30] MEDS: metroNIDAZOLE 500mg/100ml NS 250 MG in Premixed IV 1 EA IVPB SCH (18:11)
[2018-06-30] MEDS: Meropenem 500 MG in Sodium Chloride 0.9% 100 ML IVPB SCH (18:13)
[2018-07-01] MEDS: metroNIDAZOLE 500mg/100ml NS 250 MG in Premixed IV 1 EA IVPB SCH ×3 (00:28→17:08)
[2018-07-01 05:51] LABS: BASO # 0.1 K/uL (0.0-0.2); BASO % 0.4 % (0.0-2.0); EOS # 0.1 K/uL (0.0-0.7); EOS % 0.5 % (0.0-4.0); LYMPH # 1.1 K/uL (1.0-4.3); MEAN CELL VOLUME 84.5 fl (80.0-94.0); MEAN CORPUSCULAR HEMOGLOBIN 26.1 pg (27.0-31.0); MEAN CORPUSCULAR HGB CONC 30.9 g/dL (33.0-37.0); MEAN PLATELET VOLUME 9.2 fl (7.2-11.7); MONO # 0.7 K/uL (0.0-0.8); MONO % 5.7 % (0.0-10.0); NEUT # 10.6 K/uL (1.8-7.0); NEUT % 84.4 % (50.0-75.0); RBC 3.08 Mil/uL (4.40-5.90); WHITE BLOOD COUNT 12.5 K/uL (4.8-10.8)
[2018-07-01 05:59] LABS: CALCIUM 8.4 mg/dL (8.4-10.2)
--- NOTE | 2018-07-01 07:31 | CP.PCM.PN ---
Subjective - Date & Time of Evaluation Date of Evaluation: 06/28/18 Time of Evaluation: 11:00 - Subjective Subjective: Noted to have elevated WBC. CT scan showed moderate colitis of ascending colon. Has no chest pain or SOB. Noted less edema. Objective - Vital Signs/Intake and Output Vital Signs (last 24 hours): Temp Pulse Resp BP Pulse Ox 99.2 F 71 18 146/65 98 07/01/18 04:48 07/01/18 04:48 07/01/18 04:48 07/01/18 04:48 07/01/18 04:48 - Medications Medications: Current Medications Acetaminophen (Tylenol 325mg Tab) 650 mg PO Q6 PRN PRN Reason: Pain, Mild (1-3) Atorvastatin Calcium (Lipitor) 10 mg PO HS [facility] Last Admin: 06/30/18 21:45 Dose: 10 mg Epoetin Tommie (Procrit) 4,000 unit SC TTS [facility] Last Admin: 06/30/18 00:53 Dose: 4,000 unit Ergocalciferol (Drisdol 50,000 Intl Units Cap) 1 cap PO QWK [facility] Ferrous Sulfate (Feosol) 325 mg PO Q8 [facility] Last Admin: 07/01/18 00:27 Dose: 325 mg Furosemide (Lasix) 40 mg IV BID [facility] Last Admin: 06/30/18 18:05 Dose: 40 mg Hydralazine HCl (Apresoline) 50 mg PO Q8 [facility] Last Admin: 07/01/18 00:27 Dose: 50 mg Metronidazole 250 mg/ (Miscellaneous) 50 mls @ 50 mls/hr IVPB Q8 [facility]; Protocol Last Admin: 07/01/18 00:28 Dose: 50 mls/hr Meropenem 500 mg/ Sodium (Chloride) 100 mls @ 100 mls/hr IVPB Q24H [facility]; Protocol Last Admin: 06/30/18 18:13 Dose: 100 mls/hr Metolazone (Zaroxolyn) 2.5 mg PO BID [facility] Last Admin: 06/30/18 18:06 Dose: 2.5 mg Metoprolol Tartrate (Lopressor) 25 mg PO Q12 [facility] Last Admin: 06/30/18 21:45 Dose: 25 mg Potassium Chloride (K-Dur 20 Meq Er Tab) 20 meq PO BID [facility] Last Admin: 06/30/18 18:05 Dose: 20 meq Tamsulosin HCl (Flomax) 0.4 mg PO DAILY [facility] Last Admin: 06/30/18 09:17 Dose: 0.4 mg Thiamine HCl (Vitamin B1 Tab) 100 mg PO DAILY [facility] Last Admin: 06/30/18 09:19 Dose: 100 mg Vitamin B Complex/Vit C/Folic Acid (Nephro-Wilma) 1 tab PO DAILY [facility] Last Admin: 06/30/18 09:19 Dose: 1 tab - Labs Labs: 07/01/18 05:00 07/01/18 05:00 PT 14.2 Seconds (9.8-13.1) H 06/24/18 10:46 INR 1.3 06/24/18 10:46 APTT 27.6 Seconds (25.6-37.1) 06/24/18 10:46 - Head Exam Head Exam: NORMAL INSPECTION - Eye Exam Eye Exam: Normal appearance - ENT Exam ENT Exam: Mucous Membranes Moist - Respiratory Exam Respiratory Exam: Decreased Breath Sounds - Cardiovascular Exam Cardiovascular Exam: Irregular Rhythm - GI/Abdominal Exam GI & Abdominal Exam: Soft - Neurological Exam Neurological Exam: Awake Assessment and Plan (1) Anasarca Status: Acute (2) Pulmonary edema Status: Acute (3) Congestive heart failure (CHF) Status: Acute (4) Chronic kidney disease, stage IV (severe) Status: Chronic (5) Hypokalemia Status: Acute (6) HTN (hypertension) Status: Acute (7) Atrial fibrillation Status: Acute (8) GI bleed Status: Acute (9) Colitis Status: Acute - Assessment and Plan (Free Text) Plan: Cont meds Cont tx ID eval Iv antibiotics. Cont diuresis
--- NOTE | 2018-07-01 07:39 | CP.PCM.PN ---
Subjective - Date & Time of Evaluation Date of Evaluation: 06/30/18 Time of Evaluation: 11:00 - Subjective Subjective: Patient is stable Has no fever, Has minimal pain periumbilical Objective - Vital Signs/Intake and Output Vital Signs (last 24 hours): Temp Pulse Resp BP Pulse Ox 99.2 F 71 18 146/65 98 07/01/18 04:48 07/01/18 04:48 07/01/18 04:48 07/01/18 04:48 07/01/18 04:48 - Medications Medications: Current Medications Acetaminophen (Tylenol 325mg Tab) 650 mg PO Q6 PRN PRN Reason: Pain, Mild (1-3) Atorvastatin Calcium (Lipitor) 10 mg PO HS [facility] Last Admin: 06/30/18 21:45 Dose: 10 mg Epoetin Tommie (Procrit) 4,000 unit SC TTS [facility] Last Admin: 06/30/18 00:53 Dose: 4,000 unit Ergocalciferol (Drisdol 50,000 Intl Units Cap) 1 cap PO QWK [facility] Ferrous Sulfate (Feosol) 325 mg PO Q8 [facility] Last Admin: 07/01/18 00:27 Dose: 325 mg Furosemide (Lasix) 40 mg IV BID [facility] Last Admin: 06/30/18 18:05 Dose: 40 mg Hydralazine HCl (Apresoline) 50 mg PO Q8 [facility] Last Admin: 07/01/18 00:27 Dose: 50 mg Metronidazole 250 mg/ (Miscellaneous) 50 mls @ 50 mls/hr IVPB Q8 [facility]; Protocol Last Admin: 07/01/18 00:28 Dose: 50 mls/hr Meropenem 500 mg/ Sodium (Chloride) 100 mls @ 100 mls/hr IVPB Q24H [facility]; Protocol Last Admin: 06/30/18 18:13 Dose: 100 mls/hr Metolazone (Zaroxolyn) 2.5 mg PO BID [facility] Last Admin: 06/30/18 18:06 Dose: 2.5 mg Metoprolol Tartrate (Lopressor) 25 mg PO Q12 [facility] Last Admin: 06/30/18 21:45 Dose: 25 mg Potassium Chloride (K-Dur 20 Meq Er Tab) 20 meq PO BID [facility] Last Admin: 06/30/18 18:05 Dose: 20 meq Tamsulosin HCl (Flomax) 0.4 mg PO DAILY [facility] Last Admin: 06/30/18 09:17 Dose: 0.4 mg Thiamine HCl (Vitamin B1 Tab) 100 mg PO DAILY [facility] Last Admin: 06/30/18 09:19 Dose: 100 mg Vitamin B Complex/Vit C/Folic Acid (Nephro-Wilma) 1 tab PO DAILY [facility] Last Admin: 06/30/18 09:19 Dose: 1 tab - Labs Labs: 07/01/18 05:00 07/01/18 05:00 PT 14.2 Seconds (9.8-13.1) H 06/24/18 10:46 INR 1.3 06/24/18 10:46 APTT 27.6 Seconds (25.6-37.1) 06/24/18 10:46 - Head Exam Head Exam: NORMAL INSPECTION - ENT Exam ENT Exam: Mucous Membranes Moist - Respiratory Exam Respiratory Exam: Clear to Ausculation Bilateral - Cardiovascular Exam Cardiovascular Exam: Irregular Rhythm - GI/Abdominal Exam GI & Abdominal Exam: Normal Bowel Sounds - Neurological Exam Neurological Exam: Awake Assessment and Plan (1) Anasarca Status: Acute (2) Pulmonary edema Status: Acute (3) Congestive heart failure (CHF) Status: Acute (4) Chronic kidney disease, stage IV (severe) Status: Chronic (5) Hypokalemia Status: Acute (6) HTN (hypertension) Status: Acute (7) Atrial fibrillation Status: Acute (8) GI bleed Status: Acute (9) Colitis Status: Acute - Assessment and Plan (Free Text) Plan: Cont meds Con ttx Cont PT follow up with ID
--- NOTE | 2018-07-01 07:44 | CP.PCM.PN ---
Subjective - Date & Time of Evaluation Date of Evaluation: 06/29/18 Time of Evaluation: 10:40 - Subjective Subjective: Patient remains stable Has no fever. Has no chest pain or SOB. Objective - Vital Signs/Intake and Output Vital Signs (last 24 hours): Temp Pulse Resp BP Pulse Ox 99.2 F 71 18 146/65 98 07/01/18 04:48 07/01/18 04:48 07/01/18 04:48 07/01/18 04:48 07/01/18 04:48 - Medications Medications: Current Medications Acetaminophen (Tylenol 325mg Tab) 650 mg PO Q6 PRN PRN Reason: Pain, Mild (1-3) Atorvastatin Calcium (Lipitor) 10 mg PO HS [facility] Last Admin: 06/30/18 21:45 Dose: 10 mg Epoetin Tommie (Procrit) 4,000 unit SC TTS [facility] Last Admin: 06/30/18 00:53 Dose: 4,000 unit Ergocalciferol (Drisdol 50,000 Intl Units Cap) 1 cap PO QWK [facility] Ferrous Sulfate (Feosol) 325 mg PO Q8 [facility] Last Admin: 07/01/18 00:27 Dose: 325 mg Furosemide (Lasix) 40 mg IV BID [facility] Last Admin: 06/30/18 18:05 Dose: 40 mg Hydralazine HCl (Apresoline) 50 mg PO Q8 [facility] Last Admin: 07/01/18 00:27 Dose: 50 mg Metronidazole 250 mg/ (Miscellaneous) 50 mls @ 50 mls/hr IVPB Q8 [facility]; Protocol Last Admin: 07/01/18 00:28 Dose: 50 mls/hr Meropenem 500 mg/ Sodium (Chloride) 100 mls @ 100 mls/hr IVPB Q24H [facility]; Protocol Last Admin: 06/30/18 18:13 Dose: 100 mls/hr Metolazone (Zaroxolyn) 2.5 mg PO BID [facility] Last Admin: 06/30/18 18:06 Dose: 2.5 mg Metoprolol Tartrate (Lopressor) 25 mg PO Q12 [facility] Last Admin: 06/30/18 21:45 Dose: 25 mg Potassium Chloride (K-Dur 20 Meq Er Tab) 20 meq PO BID [facility] Last Admin: 06/30/18 18:05 Dose: 20 meq Tamsulosin HCl (Flomax) 0.4 mg PO DAILY [facility] Last Admin: 06/30/18 09:17 Dose: 0.4 mg Thiamine HCl (Vitamin B1 Tab) 100 mg PO DAILY [facility] Last Admin: 06/30/18 09:19 Dose: 100 mg Vitamin B Complex/Vit C/Folic Acid (Nephro-Wilma) 1 tab PO DAILY [facility] Last Admin: 06/30/18 09:19 Dose: 1 tab - Labs Labs: 07/01/18 05:00 07/01/18 05:00 PT 14.2 Seconds (9.8-13.1) H 06/24/18 10:46 INR 1.3 06/24/18 10:46 APTT 27.6 Seconds (25.6-37.1) 06/24/18 10:46 - Head Exam Head Exam: NORMAL INSPECTION - Eye Exam Eye Exam: Normal appearance - ENT Exam ENT Exam: Mucous Membranes Moist - Respiratory Exam Respiratory Exam: Decreased Breath Sounds - Cardiovascular Exam Cardiovascular Exam: Irregular Rhythm - GI/Abdominal Exam GI & Abdominal Exam: Soft Assessment and Plan (1) Anasarca Status: Acute (2) Pulmonary edema Status: Acute (3) Congestive heart failure (CHF) Status: Acute (4) Chronic kidney disease, stage IV (severe) Status: Chronic (5) Hypokalemia Status: Acute (6) HTN (hypertension) Status: Acute (7) Atrial fibrillation Status: Acute (8) GI bleed Status: Acute (9) Colitis Status: Acute - Assessment and Plan (Free Text) Assessment: Cont meds Cont tx Cont iv antibiotics
--- NOTE | 2018-07-01 09:24 | CP.PCM.PN ---
Subjective - Date & Time of Evaluation Date of Evaluation: 07/01/18 Time of Evaluation: 09:24 - Subjective Subjective: Patient awake and conscious not in acute distress Vital signs stable no vomiting Objective - Vital Signs/Intake and Output Vital Signs (last 24 hours): Temp Pulse Resp BP Pulse Ox 98.9 F 79 20 141/67 97 07/01/18 08:58 07/01/18 08:58 07/01/18 08:58 07/01/18 08:58 07/01/18 08:58 - Medications Medications: Current Medications Acetaminophen (Tylenol 325mg Tab) 650 mg PO Q6 PRN PRN Reason: Pain, Mild (1-3) Atorvastatin Calcium (Lipitor) 10 mg PO HS [facility] Last Admin: 06/30/18 21:45 Dose: 10 mg Epoetin Tommie (Procrit) 4,000 unit SC TTS [facility] Last Admin: 06/30/18 00:53 Dose: 4,000 unit Ergocalciferol (Drisdol 50,000 Intl Units Cap) 1 cap PO QWK [facility] Ferrous Sulfate (Feosol) 325 mg PO Q8 [facility] Last Admin: 07/01/18 00:27 Dose: 325 mg Furosemide (Lasix) 40 mg IV BID [facility] Last Admin: 06/30/18 18:05 Dose: 40 mg Hydralazine HCl (Apresoline) 50 mg PO Q8 [facility] Last Admin: 07/01/18 00:27 Dose: 50 mg Metronidazole 250 mg/ (Miscellaneous) 50 mls @ 50 mls/hr IVPB Q8 [facility]; Protocol Last Admin: 07/01/18 08:31 Dose: 50 mls/hr Meropenem 500 mg/ Sodium (Chloride) 100 mls @ 100 mls/hr IVPB Q24H [facility]; Protocol Last Admin: 06/30/18 18:13 Dose: 100 mls/hr Metolazone (Zaroxolyn) 2.5 mg PO BID [facility] Last Admin: 06/30/18 18:06 Dose: 2.5 mg Metoprolol Tartrate (Lopressor) 25 mg PO Q12 [facility] Last Admin: 06/30/18 21:45 Dose: 25 mg Potassium Chloride (K-Dur 20 Meq Er Tab) 20 meq PO BID [facility] Last Admin: 06/30/18 18:05 Dose: 20 meq Tamsulosin HCl (Flomax) 0.4 mg PO DAILY [facility] Last Admin: 06/30/18 09:17 Dose: 0.4 mg Thiamine HCl (Vitamin B1 Tab) 100 mg PO DAILY [facility] Last Admin: 06/30/18 09:19 Dose: 100 mg Vitamin B Complex/Vit C/Folic Acid (Nephro-Wilma) 1 tab PO DAILY [facility] Last Admin: 06/30/18 09:19 Dose: 1 tab - Labs Labs: 07/01/18 05:00 07/01/18 05:00 PT 14.2 Seconds (9.8-13.1) H 06/24/18 10:46 INR 1.3 06/24/18 10:46 APTT 27.6 Seconds (25.6-37.1) 06/24/18 10:46 - Constitutional Appears: No Acute Distress - Eye Exam Eye Exam: Conjunctival injection - ENT Exam ENT Exam: Mucous Membranes Moist - Neck Exam Neck Exam: absent: Lymphadenopathy - Respiratory Exam Respiratory Exam: NORMAL BREATHING PATTERN. absent: Chest Wall Tenderness, Rhonchi - Cardiovascular Exam Cardiovascular Exam: absent: Gallop, JVD, Rubs - GI/Abdominal Exam GI & Abdominal Exam: Soft, Normal Bowel Sounds - Extremities Exam Extremities Exam: absent: Calf Tenderness - Back Exam Back Exam: absent: CVA tenderness (L), CVA tenderness (R) - Neurological Exam Neurological Exam: Alert - Psychiatric Exam Psychiatric exam: Normal Affect - Skin Skin Exam: absent: Cyanosis Assessment and Plan (1) Chronic kidney disease, stage IV (severe) Assessment & Plan: Patient has underlying chronic kidney disease stage IV and he presented with anasarca including leg swelling abdominal ascites upper extremity swollen. Urinalysis did not show proteinuria Etiology of chronic kidney disease is not clear whether related to hypertensive chronic kidney disease number From previous ultrasound of the kidney showed right suprarenal mass Anemia Plan CT scan did not show supra renal mass or renal mass. Patient need kidney biopsy to do PT PTT INR make sure his coagulation is intact Talked with the nurse practitioner to go ahead arrangement for the kidney biopsy with the interventional radiologist. Patient scheduled for hemodialysis shortly because of the persistent and refractory anasarca DC IV fluid Status: Chronic (2) HTN (hypertension) Status: Acute (3) Hand swelling Status: Acute
[2018-07-01] MEDS: metOLazone 2.5 MG TAB PO SCH ×2 (09:40→17:11)
[2018-07-01] MEDS: Multivitamin Vitamin B Complex (Nephro-Vite) Tab PO SCH (09:42)
[2018-07-01] MEDS: Potassium Chloride 20 mEq ER Tab PO SCH ×2 (09:42→17:09)
[2018-07-01 11:40] LABS: INR 1.3; PROTHROMBIN TIME 14.5 Seconds (9.8-13.1)
--- NOTE | 2018-07-01 13:34 | VASCULAR ---
PROCEDURE: Date of procedure: 06/28/2018 Procedure: Placement of a non tunneled hemodialysis catheter, CPT 41989 Medications: 6cc 1 percent lidocaine Radiation: 0.46 MGy Fluoro time: 5.1 Seconds Images saved: 2 HISTORY: Renal failure TECHNIQUE: Following informed consent, the patient's right neck was prepped and draped in the usual sterile fashion. Ultrasound showed a patent and compressible right internal jugular vein. After the skin was anesthetized with 1% lidocaine, the internal jugular vein was accessed under direct ultrasound guidance with micropuncture technique and a guidewire was advanced under fluoroscopic guidance into the SVC. The venotomy was then dilated to accommodate a non tunneled 15 hemodialysis catheter. An image documenting ultrasound guidance for vascular access was permanently saved. The catheter was tested and has adequate blood return for hemodialysis. The catheter was flushed and loaded with heparin per specified amounts. The catheter was secured to patient's skin. A dressing was applied. Post procedure chest x-ray showed a hemodialysis catheter at the caval atrial junction. IMPRESSION: Placement of a non tunneled 15 centimeter hemodialysis catheter via the right internal jugular vein. The tip of the catheter was confirmed with a postoperative chest x-ray and is at the cavoatrial junction. The catheter is functional ready for use.
[2018-07-01] MEDS: Meropenem 500 MG in Sodium Chloride 0.9% 100 ML IVPB SCH (14:58)
--- NOTE | 2018-07-01 18:14 | CP.PCM.PN ---
Subjective - Date & Time of Evaluation Date of Evaluation: 07/01/18 Time of Evaluation: 18:15 - Subjective Subjective: i d note some improvement noted wbc:16.4 to12.4 continue same rx Objective - Vital Signs/Intake and Output Vital Signs (last 24 hours): Temp Pulse Resp BP Pulse Ox 98.7 F 71 20 139/42 L 97 07/01/18 17:00 07/01/18 17:09 07/01/18 17:00 07/01/18 17:10 07/01/18 17:00 - Medications Medications: Current Medications Acetaminophen (Tylenol 325mg Tab) 650 mg PO Q6 PRN PRN Reason: Pain, Mild (1-3) Atorvastatin Calcium (Lipitor) 10 mg PO HS [facility] Last Admin: 06/30/18 21:45 Dose: 10 mg Epoetin Tommie (Procrit) 4,000 unit SC TTS [facility] Last Admin: 06/30/18 00:53 Dose: 4,000 unit Ergocalciferol (Drisdol 50,000 Intl Units Cap) 1 cap PO QWK [facility] Ferrous Sulfate (Feosol) 325 mg PO Q8 [facility] Last Admin: 07/01/18 17:09 Dose: 325 mg Furosemide (Lasix) 40 mg IV BID [facility] Last Admin: 07/01/18 17:10 Dose: Not Given Hydralazine HCl (Apresoline) 50 mg PO Q8 [facility] Last Admin: 07/01/18 17:09 Dose: Not Given Metronidazole 250 mg/ (Miscellaneous) 50 mls @ 50 mls/hr IVPB Q8 [facility]; Protocol Last Admin: 07/01/18 17:08 Dose: 50 mls/hr Meropenem 500 mg/ Sodium (Chloride) 100 mls @ 100 mls/hr IVPB Q24H [facility]; [facility] Last Admin: 07/01/18 14:58 Dose: 100 mls/hr Metolazone (Zaroxolyn) 2.5 mg PO BID [facility] Last Admin: 07/01/18 17:11 Dose: Not Given Metoprolol Tartrate (Lopressor) 25 mg PO Q12 [facility] Last Admin: 07/01/18 09:43 Dose: 25 mg Potassium Chloride (K-Dur 20 Meq Er Tab) 20 meq PO BID [facility] Last Admin: 07/01/18 17:09 Dose: 20 meq Tamsulosin HCl (Flomax) 0.4 mg PO DAILY [facility] Last Admin: 07/01/18 09:42 Dose: 0.4 mg Thiamine HCl (Vitamin B1 Tab) 100 mg PO DAILY [facility] Last Admin: 07/01/18 09:41 Dose: 100 mg Vitamin B Complex/Vit C/Folic Acid (Nephro-Wilma) 1 tab PO DAILY [facility] Last Admin: 07/01/18 09:42 Dose: 1 tab - Labs Labs: 07/01/18 05:00 07/01/18 05:00 PT 14.5 Seconds (9.8-13.1) H 07/01/18 11:26 INR 1.3 07/01/18 11:26 APTT 27.6 Seconds (25.6-37.1) 06/24/18 10:46
--- NOTE | 2018-07-01 21:31 | CP.PCM.PN ---
Subjective - Date & Time of Evaluation Date of Evaluation: 07/01/18 Time of Evaluation: 11:00 - Subjective Subjective: patient seen and examined at bedside. Interim events noted No complaints offered at this time denies cp/sob/fever/chills. available diagnostic data reviewed Review of Systems All systems: reviewed and no additional remarkable complaints except mentioned above Objective Vital Signs Stable - Constitutional Appears: Non-toxic, No Acute Distress - Head Exam Head Exam: NORMAL INSPECTION - Eye Exam Eye Exam: Normal appearance - Respiratory Exam Respiratory Exam: NORMAL BREATHING PATTERN - Cardiovascular Exam Cardiovascular Exam: +S1, +S2 - GI/Abdominal Exam GI & Abdominal Exam: Soft - Neurological Exam Neurological Exam: Alert, Awake - Psychiatric Exam Psychiatric exam: Normal Affect, Normal Mood - Skin Skin Exam: Normal Color, Warm Assessment and Plan monitor vitals monitor labs Cont meds Cont tx consultants appreciated input rest of plan as ordered Assessment and Plan (1) Adrenal mass, right Status: Acute (2) Atrial fibrillation Status: Acute (3) Chronic kidney disease, stage IV (severe) Status: Chronic (4) HTN (hypertension) Status: Acute
[2018-07-02] MEDS: metroNIDAZOLE 500mg/100ml NS 250 MG in Premixed IV 1 EA IVPB SCH ×3 (01:58→18:00)
[2018-07-02 05:15] LABS: HEMOGLOBIN 7.9 g/dL (12.0-18.0); MEAN CELL VOLUME 83.8 fl (80.0-94.0); MEAN CORPUSCULAR HEMOGLOBIN 25.8 pg (27.0-31.0); MEAN CORPUSCULAR HGB CONC 30.8 g/dL (33.0-37.0); RBC 3.05 Mil/uL (4.40-5.90); RED CELL DISTRIBUTION WIDTH 19.1 % (11.5-14.5); WHITE BLOOD COUNT 11.6 K/uL (4.8-10.8)
[2018-07-02 05:26] LABS: CALCIUM 7.9 mg/dL (8.4-10.2)
--- NOTE | 2018-07-02 08:41 | CP.PCM.PN ---
Subjective - Date & Time of Evaluation Date of Evaluation: 07/02/18 Time of Evaluation: 08:40 - Subjective Subjective: Patient is awake and conscious not in acute distress Vital signs stable New event reported Chest pain no shortness of breath Objective - Vital Signs/Intake and Output Vital Signs (last 24 hours): Temp Pulse Resp BP Pulse Ox 98.7 F 76 18 152/71 H 97 07/02/18 07:54 07/02/18 07:54 07/02/18 07:54 07/02/18 07:54 07/02/18 07:54 - Medications Medications: Current Medications Acetaminophen (Tylenol 325mg Tab) 650 mg PO Q6 PRN PRN Reason: Pain, Mild (1-3) Last Admin: 07/02/18 03:18 Dose: 650 mg Atorvastatin Calcium (Lipitor) 10 mg PO HS [facility] Last Admin: 07/02/18 00:21 Dose: 10 mg Epoetin Tommie (Procrit) 4,000 unit SC TTS [facility] Last Admin: 06/30/18 00:53 Dose: 4,000 unit Ergocalciferol (Drisdol 50,000 Intl Units Cap) 1 cap PO QWK [facility] Ferrous Sulfate (Feosol) 325 mg PO Q8 [facility] Last Admin: 07/02/18 01:59 Dose: 325 mg Furosemide (Lasix) 40 mg IV BID [facility] Last Admin: 07/01/18 17:10 Dose: Not Given Hydralazine HCl (Apresoline) 50 mg PO Q8 [facility] Last Admin: 07/02/18 02:07 Dose: 50 mg Metronidazole 250 mg/ (Miscellaneous) 50 mls @ 50 mls/hr IVPB Q8 [facility]; Protocol Last Admin: 07/02/18 01:58 Dose: 50 mls/hr Meropenem 500 mg/ Sodium (Chloride) 100 mls @ 100 mls/hr IVPB Q24H [facility]; Protocol Last Admin: 07/01/18 14:58 Dose: 100 mls/hr Metolazone (Zaroxolyn) 2.5 mg PO BID [facility] Last Admin: 07/01/18 17:11 Dose: Not Given Metoprolol Tartrate (Lopressor) 25 mg PO Q12 [facility] Last Admin: 07/02/18 00:20 Dose: 25 mg Potassium Chloride (K-Dur 20 Meq Er Tab) 20 meq PO BID [facility] Last Admin: 07/01/18 17:09 Dose: 20 meq Tamsulosin HCl (Flomax) 0.4 mg PO DAILY [facility] Last Admin: 07/01/18 09:42 Dose: 0.4 mg Thiamine HCl (Vitamin B1 Tab) 100 mg PO DAILY [facility] Last Admin: 07/01/18 09:41 Dose: 100 mg Vitamin B Complex/Vit C/Folic Acid (Nephro-Wilma) 1 tab PO DAILY [facility] Last Admin: 07/01/18 09:42 Dose: 1 tab - Labs Labs: 07/02/18 04:30 07/02/18 04:30 PT 14.5 Seconds (9.8-13.1) H 07/01/18 11:26 INR 1.3 07/01/18 11:26 APTT 27.6 Seconds (25.6-37.1) 06/24/18 10:46 - Constitutional Appears: No Acute Distress - Eye Exam Eye Exam: Conjunctival injection - ENT Exam ENT Exam: Mucous Membranes Moist - Respiratory Exam Respiratory Exam: NORMAL BREATHING PATTERN - Cardiovascular Exam Cardiovascular Exam: absent: Gallop, JVD, Rubs - GI/Abdominal Exam GI & Abdominal Exam: Soft, Normal Bowel Sounds - Extremities Exam Extremities Exam: absent: Calf Tenderness - Back Exam Back Exam: absent: CVA tenderness (L), CVA tenderness (R) - Neurological Exam Neurological Exam: Alert - Skin Skin Exam: absent: Cyanosis Assessment and Plan (1) Chronic kidney disease, stage IV (severe) Assessment & Plan: Patient has underlying chronic kidney disease stage IV and he presented with anasarca including leg swelling abdominal ascites upper extremity swollen. Urinalysis did not show proteinuria Etiology of chronic kidney disease is not clear whether related to hypertensive chronic kidney disease number Anemia Plan CT scan did not show supra renal mass or renal mass. Patient need kidney biopsy to do PT PTT INR make sure his coagulation is intact Blood culture reported to be negative WBC coming down Hemoglobin dropping significantly I wonder whether he has any active bleeding? Increase EPO 10,000 unit TTS I suggest to give 1 unit of packed cells before he goes to kidney biopsy Status: Chronic (2) HTN (hypertension) Status: Acute (3) Hand swelling Status: Acute
[2018-07-02] MEDS ORDERED: EPOETIN ALFA 10,000 UNIT/ML ML SC SCH (09:00)
[2018-07-02] MEDS: Potassium Chloride 20 mEq ER Tab PO SCH ×2 (09:33→16:41)
[2018-07-02] MEDS: metOLazone 2.5 MG TAB PO SCH ×2 (09:35→16:41)
[2018-07-02] MEDS: Multivitamin Vitamin B Complex (Nephro-Vite) Tab PO SCH (09:35)
[2018-07-02] MEDS ORDERED: Midazolam 2 MG/2 ML VIAL ONE (13:21)
[2018-07-02] MEDS ORDERED: Absorbable Gelatin Sponge Size 12-7 ONE (13:28)
[2018-07-02] MEDS ORDERED: Lidocaine 1% Inj (20ml) ONE (13:28)
--- NOTE | 2018-07-02 13:37 | PCM.SURG1 ---
Surgeon's Initial Post Op Note - Surgeon's Notes Surgeon: Keagan Quiros MD Car Seat Upholsterer: NONE Type of Anesthesia: IV Sedation Pre-Operative Diagnosis: Renal failure Operative Findings: US showed a normal left kidney Post-Operative Diagnosis: Renal failure Operation Performed: US guided left renal biopsy. Three 18 g core specimen obtained. Biopsy tract embolized with gelfoam. Specimen/Specimens Removed: 18-gauge core x 3 Estimated Blood Loss: EBL {In ML}: 1 Blood Products Given: N/A Drains Used: No Drains Post-Op Condition: Fair Date of Surgery/Procedure: 07/02/18 Time of Surgery/Procedure: 13:35
--- NOTE | 2018-07-02 13:45 | CT ---
PROCEDURE: Date of procedure: 07/01/2018 Procedure: Ultrasound-guided left renal biopsy, CPT 97104 Ultrasound guidance for biopsy, [address] Medication: 8 cc 2% Lidocaine, patient received IV sedation by the anesthesiologist along with physiologic monitoring. HISTORY: Renal failure TECHNIQUE: Following informed consent and procedure time-out, the patient was placed prone on the interventional table and a limited ultrasound showed a normal appearing left kideny. There is no hydronephrosis or mass. The patient left back was prepped and draped in the usual sterile fashion. After patient sedated by the anesthesiologist and the skin anesthetized with lidocaine, an 18 gauge core needle was advanced percutaneously towards the lower pole cortex. Upon confirmation of needle position, three-18 gauge core specimens were obtained and sent for routine pathology. The biopsy tract was then embolized with Gelfoam. A post biopsy ultrasound showed no hematoma. There were no immediate complications. IMPRESSION: Ultrasound-guided left renal biopsy.
[2018-07-02] MEDS: Meropenem 500 MG in Sodium Chloride 0.9% 100 ML IVPB SCH (16:37)
--- NOTE | 2018-07-02 17:11 | PQF ---
PROVIDER RESPONSE TEXT: Acute on chronic diastolic HF REVIEWER QUERY TEXT: CHF Acuity and Type Congestive Heart Failure is documented in the Medical Record. Please document the type and acuity (in cludes probable or suspected) Such as: Type: -- Systolic -- Diastolic -- Combined -- Other, please specify Acuity: -- Acute -- Chronic -- Acute on chronic -- Other, please specify The patient's Clinical Indicators include: Presents with worsening SOB and edema. Cardiology note: Atrial fibrillation, CKD 4, HTN Pro BNP 14,600. CXR: Mild to moderate pulmonary vascular congestion. Rx: Lasix IV ECHO from 05/22/18: EF 55-60%, LVDF cannot be assessed due to underlying atrial fibrillation, LA dil ated, AR, MR, TR Query created by: Sarah Romeo on 06/26/2018 8:52 AM Electronically signed by: Thomas Bedolla MD 07/02/2018 5:07 PM
--- NOTE | 2018-07-02 17:26 | CP.PCM.PN ---
Subjective - Date & Time of Evaluation Date of Evaluation: 07/02/18 Time of Evaluation: 11:30 - Subjective Subjective: patient s for renal biopsy Has no fever Has minimal tenderness on periumb area. Hgb 7.9 Objective - Vital Signs/Intake and Output Vital Signs (last 24 hours): Temp Pulse Resp BP Pulse Ox 98.3 F 65 20 140/76 100 07/02/18 16:13 07/02/18 16:40 07/02/18 16:13 07/02/18 16:41 07/02/18 16:13 - Medications Medications: Current Medications Acetaminophen (Tylenol 325mg Tab) 650 mg PO Q6 PRN PRN Reason: Pain, Mild (1-3) Last Admin: 07/02/18 16:35 Dose: 650 mg Atorvastatin Calcium (Lipitor) 10 mg PO HS [facility] Last Admin: 07/02/18 00:21 Dose: 10 mg Epoetin Tommie (Procrit) 10,000 unit SC TTS [facility] Last Admin: 07/02/18 12:25 Dose: 10,000 unit Ergocalciferol (Drisdol 50,000 Intl Units Cap) 1 cap PO QWK [facility] Ferrous Sulfate (Feosol) 325 mg PO Q8 [facility] Last Admin: 07/02/18 16:40 Dose: 325 mg Furosemide (Lasix) 40 mg IV BID [facility] Last Admin: 07/02/18 16:41 Dose: 40 mg Hydralazine HCl (Apresoline) 50 mg PO Q8 [facility] Last Admin: 07/02/18 16:40 Dose: 50 mg Metronidazole 250 mg/ (Miscellaneous) 50 mls @ 50 mls/hr IVPB Q8 [facility]; Protocol Last Admin: 07/02/18 09:32 Dose: 50 mls/hr Meropenem 500 mg/ Sodium (Chloride) 100 mls @ 100 mls/hr IVPB Q24H [facility]; Protocol Last Admin: 07/02/18 16:37 Dose: 100 mls/hr Metolazone (Zaroxolyn) 2.5 mg PO BID [facility] Last Admin: 07/02/18 16:41 Dose: 2.5 mg Metoprolol Tartrate (Lopressor) 25 mg PO Q12 [facility] Last Admin: 07/02/18 09:34 Dose: 25 mg Potassium Chloride (K-Dur 20 Meq Er Tab) 20 meq PO BID [facility] Last Admin: 07/02/18 16:41 Dose: 20 meq Tamsulosin HCl (Flomax) 0.4 mg PO DAILY [facility] Last Admin: 07/02/18 09:33 Dose: 0.4 mg Thiamine HCl (Vitamin B1 Tab) 100 mg PO DAILY [facility] Last Admin: 07/02/18 09:35 Dose: 100 mg Vitamin B Complex/Vit C/Folic Acid (Nephro-Wilma) 1 tab PO DAILY [facility] Last Admin: 07/02/18 09:35 Dose: 1 tab - Labs Labs: 07/02/18 04:30 07/02/18 04:30 PT 14.5 Seconds (9.8-13.1) H 07/01/18 11:26 INR 1.3 07/01/18 11:26 APTT 27.6 Seconds (25.6-37.1) 06/24/18 10:46 - Head Exam Head Exam: NORMAL INSPECTION - Eye Exam Eye Exam: Normal appearance - ENT Exam ENT Exam: Mucous Membranes Moist - Respiratory Exam Respiratory Exam: Decreased Breath Sounds - Cardiovascular Exam Cardiovascular Exam: REGULAR RHYTHM - GI/Abdominal Exam GI & Abdominal Exam: Normal Bowel Sounds Assessment and Plan (1) Anasarca Status: Acute (2) Pulmonary edema Status: Acute (3) Congestive heart failure (CHF) Status: Acute (4) Chronic kidney disease, stage IV (severe) Status: Chronic (5) Hypokalemia Status: Acute (6) HTN (hypertension) Status: Acute (7) Atrial fibrillation Status: Acute (8) GI bleed Status: Acute (9) Colitis Status: Acute (10) Anemia Status: Acute - Assessment and Plan (Free Text) Plan: contmeds cont tx follow up biopsy Phsy therapy Transfuse two units PRBC if Hgb drops to below 7
[2018-07-03] MEDS: metroNIDAZOLE 500mg/100ml NS 250 MG in Premixed IV 1 EA IVPB SCH ×4 (00:14→17:55)
[2018-07-03 05:52] LABS: BASO # 0.1 K/uL (0.0-0.2); BASO % 0.6 % (0.0-2.0); EOS # 0.1 K/uL (0.0-0.7); HEMOGLOBIN 8.4 g/dL (12.0-18.0); LYMPH # 1.1 K/uL (1.0-4.3); LYMPH % 11.3 % (20.0-40.0); MEAN CELL VOLUME 84.7 fl (80.0-94.0); MEAN CORPUSCULAR HEMOGLOBIN 26.4 pg (27.0-31.0); MEAN CORPUSCULAR HGB CONC 31.2 g/dL (33.0-37.0); MEAN PLATELET VOLUME 9.1 fl (7.2-11.7); MONO # 0.6 K/uL (0.0-0.8); MONO % 6.5 % (0.0-10.0); NEUT % 80.6 % (50.0-75.0); RBC 3.18 Mil/uL (4.40-5.90); RED CELL DISTRIBUTION WIDTH 19.1 % (11.5-14.5); WHITE BLOOD COUNT 9.9 K/uL (4.8-10.8)
[2018-07-03 06:16] LABS: ALB/GLOB RATIO 0.7 (1.0-2.1); ALBUMIN 2.4 g/dL (3.5-5.0); CALCIUM 8.2 mg/dL (8.4-10.2)
--- NOTE | 2018-07-03 09:12 | CP.PCM.PN ---
Subjective - Date & Time of Evaluation Date of Evaluation: 07/03/18 Time of Evaluation: 09:12 - Subjective Subjective: Patient sitting up in the chair having his breakfast Vital signs noted to be stable No nausea no vomiting Objective - Vital Signs/Intake and Output Vital Signs (last 24 hours): Temp Pulse Resp BP Pulse Ox 97.9 F 73 18 149/64 98 07/03/18 08:00 07/03/18 08:00 07/03/18 08:00 07/03/18 08:00 07/03/18 08:00 Intake and Output: 07/03/18 07/03/18 06:59 18:59 Output Total 600 Balance -600 - Medications Medications: Current Medications Acetaminophen (Tylenol 325mg Tab) 650 mg PO Q6 PRN PRN Reason: Pain, Mild (1-3) Last Admin: 07/02/18 16:35 Dose: 650 mg Atorvastatin Calcium (Lipitor) 10 mg PO HS [facility] Last Admin: 07/02/18 21:16 Dose: 10 mg Epoetin Tommie (Procrit) 10,000 unit SC MWF [facility] Ergocalciferol (Drisdol 50,000 Intl Units Cap) 1 cap PO QWK [facility] Ferrous Sulfate (Feosol) 325 mg PO Q8 [facility] Last Admin: 07/03/18 00:14 Dose: 325 mg Furosemide (Lasix) 40 mg IV BID [facility] Last Admin: 07/02/18 16:41 Dose: 40 mg Hydralazine HCl (Apresoline) 50 mg PO Q8 [facility] Last Admin: 07/03/18 00:14 Dose: 50 mg Metronidazole 250 mg/ (Miscellaneous) 50 mls @ 50 mls/hr IVPB Q8 [facility]; Protocol Last Admin: 07/03/18 00:14 Dose: 50 mls/hr Meropenem 500 mg/ Sodium (Chloride) 100 mls @ 100 mls/hr IVPB Q24H [facility]; Protocol Last Admin: 07/02/18 16:37 Dose: 100 mls/hr Metolazone (Zaroxolyn) 2.5 mg PO BID [facility] Last Admin: 07/02/18 16:41 Dose: 2.5 mg Metoprolol Tartrate (Lopressor) 25 mg PO Q12 [facility] Last Admin: 07/02/18 21:16 Dose: 25 mg Potassium Chloride (K-Dur 20 Meq Er Tab) 20 meq PO BID [facility] Last Admin: 07/02/18 16:41 Dose: 20 meq Tamsulosin HCl (Flomax) 0.4 mg PO DAILY [facility] Last Admin: 07/02/18 09:33 Dose: 0.4 mg Thiamine HCl (Vitamin B1 Tab) 100 mg PO DAILY [facility] Last Admin: 07/02/18 09:35 Dose: 100 mg Vitamin B Complex/Vit C/Folic Acid (Nephro-Wilma) 1 tab PO DAILY [facility] Last Admin: 07/02/18 09:35 Dose: 1 tab - Labs Labs: 07/03/18 04:40 07/03/18 04:40 PT 14.5 Seconds (9.8-13.1) H 07/01/18 11:26 INR 1.3 07/01/18 11:26 APTT 27.6 Seconds (25.6-37.1) 06/24/18 10:46 - Constitutional Appears: No Acute Distress - Eye Exam Eye Exam: Conjunctival injection - ENT Exam ENT Exam: Mucous Membranes Moist - Neck Exam Neck Exam: absent: Lymphadenopathy - Respiratory Exam Respiratory Exam: absent: Chest Wall Tenderness - Cardiovascular Exam Cardiovascular Exam: absent: Gallop, JVD, Rubs - GI/Abdominal Exam GI & Abdominal Exam: Soft, Normal Bowel Sounds - Extremities Exam Extremities Exam: absent: Calf Tenderness - Back Exam Back Exam: absent: CVA tenderness (L), CVA tenderness (R) - Neurological Exam Neurological Exam: Alert - Psychiatric Exam Psychiatric exam: Normal Affect - Skin Skin Exam: absent: Cyanosis Assessment and Plan (1) Chronic kidney disease, stage IV (severe) Assessment & Plan: Patient has underlying chronic kidney disease stage IV and he presented with anasarca including leg swelling abdominal ascites upper extremity swollen. Urinalysis did not show proteinuria Etiology of chronic kidney disease is not clear whether related to hypertensive chronic kidney disease number Anemia Recommendation Patient still has 2+ leg edema despite continuation of hemodialysis We will ultrafiltrate today about 2-1/2 L at least if tolerated EPO for anemia Waiting for the kidney biopsy report Kidney function improving and we will cut down dialysis Status: Chronic (2) HTN (hypertension) Status: Acute (3) Hand swelling Status: Acute
[2018-07-03] MEDS: metOLazone 2.5 MG TAB PO SCH ×2 (09:25→16:21)
[2018-07-03] MEDS: Multivitamin Vitamin B Complex (Nephro-Vite) Tab PO SCH (09:26)
[2018-07-03] MEDS: Potassium Chloride 20 mEq ER Tab PO SCH ×2 (09:26→16:24)
--- NOTE | 2018-07-03 15:25 | PQF ---
PROVIDER RESPONSE TEXT: Anemia REVIEWER QUERY TEXT: Medication Correlation for Diagnosis Your help is needed in capturing diagnoses for the corresponding medications ordered. Please clarify in the documentation diagnoses for the following medication(s). Feosol Medications:Feosol The patient's Clinical Indicators include: HGB 8.6 HCT 27.9 Query created by: Sarah Romeo on 06/26/2018 8:54 AM Electronically signed by: Thomas Bedolla MD 07/03/2018 3:22 PM
--- NOTE | 2018-07-03 15:25 | PQF ---
PROVIDER RESPONSE TEXT: Chronic Afib REVIEWER QUERY TEXT: Atrial Fibrillation Type Atrial fibrillation is documented in the Medical Record. Please specify the type Such as: -- Chronic -- Paroxysmal -- Permanent -- Persistent -- Other, please specify The patient's Clinical Indicators include: Documentation of Atrial Fibrillation. EKG: Atrial Fibrillation with PVC, Low voltage QRS, Septal infarct age undetermined Medication Lopressor Query created by: Sarah Romeo on 06/26/2018 8:53 AM Electronically signed by: Thomas Bedolla MD 07/03/2018 3:22 PM
[2018-07-03] MEDS: Meropenem 500 MG in Sodium Chloride 0.9% 100 ML IVPB SCH ×2 (16:22→17:53)
[2018-07-04] MEDS: metroNIDAZOLE 500mg/100ml NS 250 MG in Premixed IV 1 EA IVPB SCH ×3 (00:04→16:32)
--- NOTE | 2018-07-04 00:40 | CP.PCM.PN ---
Subjective - Date & Time of Evaluation Date of Evaluation: 07/03/18 Time of Evaluation: 16:00 - Subjective Subjective: Pt was seen and assessed at bedside. Currently laying in bed. Generalized Anasarca noted; more noticeable in the BLE. Awaiting liver biopsy results. No new complaints as per the pt, for hemodialysis today. Plan of care discussed with staff. Review of Systems - Review of Systems All systems: reviewed and no additional remarkable complaints except - Constitutional Constitutional: Weakness, Malaise - Musculoskeletal Additional comments: swelling throughout the body Objective - Vital Signs/Intake and Output Vital Signs (last 24 hours): Temp Pulse Resp BP Pulse Ox 99.2 F 61 20 122/60 98 07/03/18 23:58 07/04/18 00:02 07/03/18 23:58 07/04/18 00:02 07/03/18 23:58 - Medications Medications: Current Medications Acetaminophen (Tylenol 325mg Tab) 650 mg PO Q6 PRN PRN Reason: Pain, Mild (1-3) Last Admin: 07/03/18 23:44 Dose: 650 mg Atorvastatin Calcium (Lipitor) 10 mg PO HS [facility] Last Admin: 07/03/18 21:09 Dose: 10 mg Epoetin Tommie (Procrit) 10,000 unit SC MWF SCAR Ergocalciferol (Drisdol 50,000 Intl Units Cap) 1 cap PO QWK [facility] Ferrous Sulfate (Feosol) 325 mg PO Q8 [facility] Last Admin: 07/04/18 00:02 Dose: 325 mg Furosemide (Lasix) 40 mg IV BID [facility] Last Admin: 07/03/18 16:22 Dose: Not Given Hydralazine HCl (Apresoline) 50 mg PO Q8 [facility] Last Admin: 07/04/18 00:02 Dose: 50 mg Metronidazole 250 mg/ (Miscellaneous) 50 mls @ 50 mls/hr IVPB Q8 [facility]; Protocol Last Admin: 07/04/18 00:04 Dose: 50 mls/hr Meropenem 500 mg/ Sodium (Chloride) 100 mls @ 100 mls/hr IVPB Q24H [facility]; Protocol Last Admin: 07/03/18 17:53 Dose: 100 mls/hr Metolazone (Zaroxolyn) 2.5 mg PO BID [facility] Last Admin: 07/03/18 16:21 Dose: Not Given Metoprolol Tartrate (Lopressor) 25 mg PO Q12 [facility] Last Admin: 07/03/18 21:09 Dose: 25 mg Potassium Chloride (K-Dur 20 Meq Er Tab) 20 meq PO BID [facility] Last Admin: 07/03/18 16:24 Dose: 20 meq Tamsulosin HCl (Flomax) 0.4 mg PO DAILY [facility] Last Admin: 07/03/18 09:26 Dose: 0.4 mg Thiamine HCl (Vitamin B1 Tab) 100 mg PO DAILY [facility] Last Admin: 07/03/18 09:27 Dose: 100 mg Vitamin B Complex/Vit C/Folic Acid (Nephro-Wilma) 1 tab PO DAILY [facility] Last Admin: 07/03/18 09:26 Dose: 1 tab - Labs Labs: 07/03/18 04:40 07/03/18 04:40 PT 14.5 Seconds (9.8-13.1) H 07/01/18 11:26 INR 1.3 07/01/18 11:26 APTT 27.6 Seconds (25.6-37.1) 06/24/18 10:46 - Constitutional Appears: Chronically Ill - Head Exam Head Exam: NORMOCEPHALIC - Eye Exam Eye Exam: PERRL Pupil Exam: PERRL - ENT Exam ENT Exam: Mucous Membranes Moist - Neck Exam Neck Exam: Full ROM - Respiratory Exam Respiratory Exam: Decreased Breath Sounds - Cardiovascular Exam Cardiovascular Exam: REGULAR RHYTHM, +S1, +S2 - GI/Abdominal Exam GI & Abdominal Exam: Distended, Normal Bowel Sounds - Extremities Exam Extremities Exam: Full ROM Additional comments: generalized anasarca, more so in the BLE, where 3+ pitting edema is present - Back Exam Back Exam: NORMAL INSPECTION - Neurological Exam Neurological Exam: Alert, Awake, Oriented x3 - Psychiatric Exam Psychiatric exam: Normal Affect, Normal Mood - Skin Skin Exam: Dry, Intact, Normal Color Assessment and Plan (1) Chronic kidney disease (CKD) Assessment & Plan: Assessment/Impression/Major Problems Now: 1.) CKD 4 -For hemodialysis today. -Nephro consult appreciated. -Pending Kidney Biospy results. -BUN 40, Creatinine 2.0. -On Zaroxolyn and Lasix daily; replace potassium as needed. -Strict BP management. Status: Acute
[2018-07-04 05:28] LABS: HEMOGLOBIN 8.1 g/dL (12.0-18.0); MEAN CELL VOLUME 83.8 fl (80.0-94.0); MEAN CORPUSCULAR HEMOGLOBIN 26.2 pg (27.0-31.0); MEAN CORPUSCULAR HGB CONC 31.2 g/dL (33.0-37.0); RBC 3.09 Mil/uL (4.40-5.90); RED CELL DISTRIBUTION WIDTH 19.2 % (11.5-14.5); WHITE BLOOD COUNT 7.7 K/uL (4.8-10.8)
[2018-07-04 05:56] LABS: ALB/GLOB RATIO 0.7 (1.0-2.1); ALBUMIN 2.3 g/dL (3.5-5.0); ALT/SGPT 15 U/L (21-72); AST/SGOT 44 U/L (17-59); BLOOD UREA NITROGEN 24 mg/dl (9-20); CALCIUM 7.7 mg/dL (8.4-10.2); GFR NON-AFRICAN AMERICAN 50
[2018-07-04] MEDS: Multivitamin Vitamin B Complex (Nephro-Vite) Tab PO SCH (08:46)
[2018-07-04] MEDS: Potassium Chloride 20 mEq ER Tab PO SCH ×2 (08:47→16:32)
[2018-07-04] MEDS: metOLazone 2.5 MG TAB PO SCH ×2 (08:47→16:33)
--- NOTE | 2018-07-04 10:27 | CP.PCM.PN ---
Subjective - Date & Time of Evaluation Date of Evaluation: 07/04/18 Time of Evaluation: 10:26 - Subjective Subjective: Patient conscious awake not in acute distress Appears to be stable Vital signs stable Objective - Vital Signs/Intake and Output Vital Signs (last 24 hours): Temp Pulse Resp BP Pulse Ox 98.5 F 69 18 145/63 98 07/04/18 08:00 07/04/18 08:48 07/04/18 08:00 07/04/18 08:48 07/04/18 08:00 - Medications Medications: Current Medications Acetaminophen (Tylenol 325mg Tab) 650 mg PO Q6 PRN PRN Reason: Pain, Mild (1-3) Last Admin: 07/03/18 23:44 Dose: 650 mg Atorvastatin Calcium (Lipitor) 10 mg PO HS [facility] Last Admin: 07/03/18 21:09 Dose: 10 mg Epoetin Tommie (Procrit) 10,000 unit SC MWF SCAR Ergocalciferol (Drisdol 50,000 Intl Units Cap) 1 cap PO QWK [facility] Ferrous Sulfate (Feosol) 325 mg PO Q8 [facility] Last Admin: 07/04/18 08:46 Dose: 325 mg Hydralazine HCl (Apresoline) 50 mg PO Q8 [facility] Last Admin: 07/04/18 08:47 Dose: 50 mg Metronidazole 250 mg/ (Miscellaneous) 50 mls @ 50 mls/hr IVPB Q8 [facility]; Protocol Last Admin: 07/04/18 08:49 Dose: 50 mls/hr Meropenem 500 mg/ Sodium (Chloride) 100 mls @ 100 mls/hr IVPB Q24H [facility]; Protocol Last Admin: 07/03/18 17:53 Dose: 100 mls/hr Metolazone (Zaroxolyn) 2.5 mg PO BID [facility] Last Admin: 07/04/18 08:47 Dose: 2.5 mg Metoprolol Tartrate (Lopressor) 25 mg PO Q12 [facility] Last Admin: 07/04/18 08:48 Dose: 25 mg Potassium Chloride (K-Dur 20 Meq Er Tab) 20 meq PO BID [facility] Last Admin: 07/04/18 08:47 Dose: 20 meq Tamsulosin HCl (Flomax) 0.4 mg PO DAILY [facility] Last Admin: 07/04/18 08:46 Dose: 0.4 mg Thiamine HCl (Vitamin B1 Tab) 100 mg PO DAILY [facility] Last Admin: 07/04/18 08:46 Dose: 100 mg Torsemide (Demadex) 100 mg PO DAILY [facility] Vitamin B Complex/Vit C/Folic Acid (Nephro-Wilma) 1 tab PO DAILY [facility] Last Admin: 07/04/18 08:46 Dose: 1 tab - Labs Labs: 07/04/18 04:15 07/04/18 04:15 PT 14.5 Seconds (9.8-13.1) H 07/01/18 11:26 INR 1.3 07/01/18 11:26 APTT 27.6 Seconds (25.6-37.1) 06/24/18 10:46 - Constitutional Appears: No Acute Distress - Eye Exam Eye Exam: Conjunctival injection - ENT Exam ENT Exam: Mucous Membranes Moist - Respiratory Exam Respiratory Exam: NORMAL BREATHING PATTERN. absent: Rales - Cardiovascular Exam Cardiovascular Exam: absent: JVD - GI/Abdominal Exam GI & Abdominal Exam: Soft, Normal Bowel Sounds - Extremities Exam Extremities Exam: absent: Calf Tenderness - Back Exam Back Exam: absent: CVA tenderness (L), CVA tenderness (R) - Neurological Exam Neurological Exam: Alert - Psychiatric Exam Psychiatric exam: Normal Affect - Skin Skin Exam: absent: Cyanosis Assessment and Plan (1) Chronic kidney disease, stage IV (severe) Assessment & Plan: Patient has underlying chronic kidney disease stage IV and he presented with anasarca including leg swelling abdominal ascites upper extremity swollen. Urinalysis did not show proteinuria Etiology of chronic kidney disease is not clear whether related to hypertensive chronic kidney disease number Anemia Recommendation Since serum creatinine coming down the last serum creatinine less than 2 therefore we will hold hemodialysis still further order and monitor kidney function and see what happens in the next couple days. Still waiting for the kidney biopsy report Continue Zaroxolyn oral and also he was switched to torsemide 100 mg daily p.o. Status: Chronic (2) HTN (hypertension) Status: Acute (3) Hand swelling Status: Acute
--- NOTE | 2018-07-04 13:52 | CP.PCM.PN ---
Subjective - Date & Time of Evaluation Date of Evaluation: 07/04/18 Time of Evaluation: 10:00 - Subjective Subjective: patient seen and examined at bedside no complaints offered at this time Objective - Vital Signs/Intake and Output Vital Signs (last 24 hours): Temp Pulse Resp BP Pulse Ox 98.3 F 66 18 136/70 99 07/04/18 12:04 07/04/18 12:04 07/04/18 12:04 07/04/18 12:04 07/04/18 12:04 - Medications Medications: Current Medications Acetaminophen (Tylenol 325mg Tab) 650 mg PO Q6 PRN PRN Reason: Pain, Mild (1-3) Last Admin: 07/03/18 23:44 Dose: 650 mg Atorvastatin Calcium (Lipitor) 10 mg PO HS [facility] Last Admin: 07/03/18 21:09 Dose: 10 mg Epoetin Tommie (Procrit) 10,000 unit SC MWF SCAR Ergocalciferol (Drisdol 50,000 Intl Units Cap) 1 cap PO QWK [facility] Ferrous Sulfate (Feosol) 325 mg PO Q8 [facility] Last Admin: 07/04/18 08:46 Dose: 325 mg Hydralazine HCl (Apresoline) 50 mg PO Q8 [facility] Last Admin: 07/04/18 08:47 Dose: 50 mg Metronidazole 250 mg/ (Miscellaneous) 50 mls @ 50 mls/hr IVPB Q8 [facility]; Protocol Last Admin: 07/04/18 08:49 Dose: 50 mls/hr Meropenem 500 mg/ Sodium (Chloride) 100 mls @ 100 mls/hr IVPB Q24H [facility]; Protocol Last Admin: 07/03/18 17:53 Dose: 100 mls/hr Metolazone (Zaroxolyn) 2.5 mg PO BID [facility] Last Admin: 07/04/18 08:47 Dose: 2.5 mg Metoprolol Tartrate (Lopressor) 25 mg PO Q12 [facility] Last Admin: 07/04/18 08:48 Dose: 25 mg Potassium Chloride (K-Dur 20 Meq Er Tab) 20 meq PO BID [facility] Last Admin: 07/04/18 08:47 Dose: 20 meq Tamsulosin HCl (Flomax) 0.4 mg PO DAILY [facility] Last Admin: 07/04/18 08:46 Dose: 0.4 mg Thiamine HCl (Vitamin B1 Tab) 100 mg PO DAILY [facility] Last Admin: 07/04/18 08:46 Dose: 100 mg Torsemide (Demadex) 100 mg PO DAILY [facility] Last Admin: 07/04/18 12:35 Dose: 100 mg Vitamin B Complex/Vit C/Folic Acid (Nephro-Wilma) 1 tab PO DAILY [facility] Last Admin: 07/04/18 08:46 Dose: 1 tab - Labs Labs: 07/04/18 04:15 07/04/18 04:15 PT 14.5 Seconds (9.8-13.1) H 07/01/18 11:26 INR 1.3 07/01/18 11:26 APTT 27.6 Seconds (25.6-37.1) 06/24/18 10:46 - Constitutional Appears: Non-toxic, No Acute Distress - Head Exam Head Exam: NORMAL INSPECTION - Eye Exam Eye Exam: Normal appearance - Respiratory Exam Respiratory Exam: NORMAL BREATHING PATTERN - Cardiovascular Exam Cardiovascular Exam: +S1, +S2 - Neurological Exam Neurological Exam: Alert, Awake - Psychiatric Exam Psychiatric exam: Normal Affect, Normal Mood - Skin Skin Exam: Normal Color, Warm Assessment and Plan (1) Chronic kidney disease, stage IV (severe) Status: Chronic (2) Atrial fibrillation Status: Acute (3) HTN (hypertension) Status: Acute - Assessment and Plan (Free Text) Assessment: available diagnostic data reviewed monitor labs monitor vitals appreciate recommendations per consultants pending kidney biopsy results CR improving continue tx rest of plan as ordered
[2018-07-04] MEDS: Meropenem 500 MG in Sodium Chloride 0.9% 100 ML IVPB SCH (16:32)
[2018-07-05] MEDS: metroNIDAZOLE 500mg/100ml NS 250 MG in Premixed IV 1 EA IVPB SCH ×3 (01:18→16:51)
[2018-07-05] MEDS: metOLazone 2.5 MG TAB PO SCH ×2 (08:22→16:55)
[2018-07-05] MEDS: Multivitamin Vitamin B Complex (Nephro-Vite) Tab PO SCH (08:25)
[2018-07-05] MEDS: Potassium Chloride 20 mEq ER Tab PO SCH ×2 (08:25→16:52)
[2018-07-05] MEDS: EPOETIN ALFA 10,000 UNIT/ML ML SC SCH (08:27)
[2018-07-05 09:33] LABS: HEMOGLOBIN 8.9 g/dL (12.0-18.0); MEAN CELL VOLUME 83.5 fl (80.0-94.0); MEAN CORPUSCULAR HEMOGLOBIN 26.4 pg (27.0-31.0); MEAN CORPUSCULAR HGB CONC 31.6 g/dL (33.0-37.0); RBC 3.37 Mil/uL (4.40-5.90); RED CELL DISTRIBUTION WIDTH 19.5 % (11.5-14.5); WHITE BLOOD COUNT 9.8 K/uL (4.8-10.8)
[2018-07-05 09:39] LABS: CALCIUM 8.8 mg/dL (8.4-10.2)
--- NOTE | 2018-07-05 13:59 | CP.PCM.PN ---
Subjective - Date & Time of Evaluation Date of Evaluation: 07/05/18 Time of Evaluation: 14:00 - Subjective Subjective: Patient feeling well no chest pain no shortness of breath Vital signs stable Objective - Vital Signs/Intake and Output Vital Signs (last 24 hours): Temp Pulse Resp BP Pulse Ox 97.3 F L 67 18 160/60 H 100 07/05/18 12:00 07/05/18 12:00 07/05/18 12:00 07/05/18 12:00 07/05/18 12:00 Intake and Output: 07/05/18 07/05/18 06:59 18:59 Intake Total 450 Output Total 550 Balance -100 - Medications Medications: Current Medications Acetaminophen (Tylenol 325mg Tab) 650 mg PO Q6 PRN PRN Reason: Pain, Mild (1-3) Last Admin: 07/04/18 21:33 Dose: 650 mg Atorvastatin Calcium (Lipitor) 10 mg PO HS [facility] Last Admin: 07/04/18 22:45 Dose: 10 mg Epoetin Tommie (Procrit) 10,000 unit SC MWF [facility] Last Admin: 07/05/18 08:27 Dose: 10,000 unit Ergocalciferol (Drisdol 50,000 Intl Units Cap) 1 cap PO QWK [facility] Ferrous Sulfate (Feosol) 325 mg PO Q8 [facility] Last Admin: 07/05/18 08:26 Dose: 325 mg Hydralazine HCl (Apresoline) 50 mg PO Q8 [facility] Last Admin: 07/05/18 08:24 Dose: 50 mg Metronidazole 250 mg/ (Miscellaneous) 50 mls @ 50 mls/hr IVPB Q8 [facility]; Protocol Last Admin: 07/05/18 01:18 Dose: 50 mls/hr Meropenem 500 mg/ Sodium (Chloride) 100 mls @ 100 mls/hr IVPB Q24H [facility]; Protocol Last Admin: 07/04/18 16:32 Dose: 100 mls/hr Metolazone (Zaroxolyn) 2.5 mg PO BID [facility] Last Admin: 07/05/18 08:22 Dose: 2.5 mg Metoprolol Tartrate (Lopressor) 25 mg PO Q12 [facility] Last Admin: 07/05/18 08:22 Dose: 25 mg Potassium Chloride (K-Dur 20 Meq Er Tab) 20 meq PO BID [facility] Last Admin: 07/05/18 08:25 Dose: 20 meq Tamsulosin HCl (Flomax) 0.4 mg PO DAILY [facility] Last Admin: 07/05/18 08:25 Dose: 0.4 mg Thiamine HCl (Vitamin B1 Tab) 100 mg PO DAILY [facility] Last Admin: 07/05/18 08:25 Dose: 100 mg Torsemide (Demadex) 100 mg PO DAILY [facility] Last Admin: 07/05/18 08:22 Dose: 100 mg Vitamin B Complex/Vit C/Folic Acid (Nephro-Wilma) 1 tab PO DAILY [facility] Last Admin: 07/05/18 08:25 Dose: 1 tab - Labs Labs: 07/05/18 09:10 07/05/18 09:10 PT 14.5 Seconds (9.8-13.1) H 07/01/18 11:26 INR 1.3 07/01/18 11:26 APTT 27.6 Seconds (25.6-37.1) 06/24/18 10:46 - Constitutional Appears: No Acute Distress - Eye Exam Eye Exam: Conjunctival injection - ENT Exam ENT Exam: Mucous Membranes Moist - Neck Exam Neck Exam: absent: Lymphadenopathy - Respiratory Exam Respiratory Exam: NORMAL BREATHING PATTERN. absent: Chest Wall Tenderness - Cardiovascular Exam Cardiovascular Exam: absent: JVD, Rubs - GI/Abdominal Exam GI & Abdominal Exam: Soft, Normal Bowel Sounds - Extremities Exam Extremities Exam: Pedal Edema. absent: Calf Tenderness - Back Exam Back Exam: absent: CVA tenderness (L), CVA tenderness (R) - Neurological Exam Neurological Exam: Alert - Skin Skin Exam: absent: Cyanosis Assessment and Plan (1) Chronic kidney disease, stage IV (severe) Assessment & Plan: Preliminary report of kidney biopsy with a telephone conversation with the pathologist revealed that the patient has mild nephrosclerosis in the kidney no amyloidosis and no significant disease other than nephrosclerosis that should not explain the anasarca the patient has Patient has underlying chronic kidney disease stage IV and he presented with anasarca including leg swelling abdominal ascites upper extremity swollen. Urinalysis did not show proteinuria Recommendation The anasarca not explainable by the kidney biopsy finding I suggested strongly to call area mechanic and to do echocardiogram to evaluate his cardiac status as a cause of his fluid retention Hemodialysis on hold temporarily to monitor kidney function and see what happens in the next few days Patient receiving torsemide 100 mg daily and Zaroxolyn 5 mg daily Status: Chronic (2) HTN (hypertension) Status: Acute (3) Hand swelling Status: Acute
--- NOTE | 2018-07-05 14:23 | PQF ---
PROVIDER RESPONSE TEXT: Anemia probably due to chronic kidney disease REVIEWER QUERY TEXT: Anemia Type Anemia is documented in the Medical Record. Please specify the cause (includes suspected or probable cause) Such as: -- Due to acute blood loss -- Due to chronic blood loss -- Due to iron deficiency -- Due to chronic disease please specify the disease -- Other, please specify The patient's Clinical Indicators include: HGB ranging 7.9--9.0 HCT ranging 25.6--27.9 Rx: Fredy Greene He has a hx of HTN and stage 4 CKD from HTN Query created by: Sarah Romeo on 07/04/2018 12:57 PM Electronically signed by: Thomas Bedolla MD 07/05/2018 2:20 PM
--- NOTE | 2018-07-05 14:23 | PQF ---
PROVIDER RESPONSE TEXT: No evidence of GI bleed, hgb stable REVIEWER QUERY TEXT: Documentation Clarification Your help is requested in clarifying the following clinical documentation, if you can please further specify in the medical record and discharge summary. Documentation of GI Bleed status Acute for this admission. Please clarify the possible etiology of th e GI bleed The patient's Clinical Indicators include: Admitted with increasing leg edema and LUE edema and worsening SOB. HGB ranging 7.9--9.0 HCT ranging 25.6--27.9 Query created by: Sarah Romeo on 07/04/2018 12:55 PM Electronically signed by: Thomas Bedolla MD 07/05/2018 2:20 PM
[2018-07-05] MEDS: Meropenem 500 MG in Sodium Chloride 0.9% 100 ML IVPB SCH (16:52)
[2018-07-06] MEDS: metroNIDAZOLE 500mg/100ml NS 250 MG in Premixed IV 1 EA IVPB SCH ×3 (01:24→16:07)
[2018-07-06] MEDS: metOLazone 2.5 MG TAB PO SCH ×2 (08:46→16:10)
[2018-07-06] MEDS: Multivitamin Vitamin B Complex (Nephro-Vite) Tab PO SCH (08:46)
[2018-07-06] MEDS: Potassium Chloride 20 mEq ER Tab PO SCH ×2 (08:47→16:09)
--- NOTE | 2018-07-06 11:47 | CP.PCM.PN ---
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 also on iron , MVI supplement lytes as needed monitor k - currently on standing k may need to reduce or hold as k has been slowly trending up but wnl still monitor for renal recovery s: feels ok no n/v Physical Examination: General Appearance: uncomfortable, in no acute respiratory distress, co- operative . Vitals reviewed and noted as below Head; Atraumatic, normocephalic ENT: no ulcers no thrush. Tongue is midline. Oropharynx: no rash or ulcers. EYES: Pupils are equal, round and reactive to light accommodation. Eye muscles and extraocular movement intact. Sclera is anicteric. Neck; supple no lymphadenopathy, no thyromegaly or bruit Lungs: Normal respiratory rate/effort. Breath sounds bilateral reduced at bases Heart: Normal rate. s1s2 normal. No rub or gallop. Extremities: 1 + edema Neurological: Patient is alert, awake and oriented to person, place and time. No focal deficit. Strength bilateral appropriate and equal Skin: Warm and dry. Normal turgor. No rash. Palpitation: Normal elasticity for age Abdomen: Abdomen is soft. Bowel sounds +. There is no abdominal tenderness, no guarding/rigidity no organomegaly Psych: normal insight and normal affect/mood MSK: no joint tenderness or swelling. Digits and nails normal, no deformity : kidney or bladder not palpable. has scrotal swelling Objective - Vital Signs/Intake and Output Vital Signs (last 24 hours): Temp Pulse Resp BP Pulse Ox 98.1 F 64 20 156/62 H 98 07/06/18 08:07 07/06/18 08:46 07/06/18 08:07 07/06/18 08:46 07/06/18 08:07 - Medications Medications: Current Medications Acetaminophen (Tylenol 325mg Tab) 650 mg PO Q6 PRN PRN Reason: Pain, Mild (1-3) Last Admin: 07/04/18 21:33 Dose: 650 mg Atorvastatin Calcium (Lipitor) 10 mg PO HS [facility] Last Admin: 07/05/18 21:35 Dose: 10 mg Epoetin Tommie (Procrit) 10,000 unit SC MWF [facility] Last Admin: 07/05/18 08:27 Dose: 10,000 unit Ergocalciferol (Drisdol 50,000 Intl Units Cap) 1 cap PO QWK [facility] Ferrous Sulfate (Feosol) 325 mg PO Q8 [facility] Last Admin: 07/06/18 08:44 Dose: 325 mg Hydralazine HCl (Apresoline) 50 mg PO Q8 [facility] Last Admin: 07/06/18 08:45 Dose: 50 mg Metronidazole 250 mg/ (Miscellaneous) 50 mls @ 50 mls/hr IVPB Q8 [facility]; Protocol Last Admin: 07/06/18 08:49 Dose: 50 mls/hr Meropenem 500 mg/ Sodium (Chloride) 100 mls @ 100 mls/hr IVPB Q24H [facility]; Protocol Last Admin: 07/05/18 16:52 Dose: 100 mls/hr Metolazone (Zaroxolyn) 2.5 mg PO BID [facility] Last Admin: 07/06/18 08:46 Dose: 2.5 mg Metoprolol Tartrate (Lopressor) 25 mg PO Q12 [facility] Last Admin: 07/06/18 08:46 Dose: 25 mg Potassium Chloride (K-Dur 20 Meq Er Tab) 20 meq PO BID [facility] Last Admin: 07/06/18 08:47 Dose: 20 meq Tamsulosin HCl (Flomax) 0.4 mg PO DAILY [facility] Last Admin: 07/06/18 08:47 Dose: 0.4 mg Thiamine HCl (Vitamin B1 Tab) 100 mg PO DAILY [facility] Last Admin: 07/06/18 08:47 Dose: 100 mg Torsemide (Demadex) 100 mg PO DAILY [facility] Last Admin: 07/06/18 08:47 Dose: 100 mg Vitamin B Complex/Vit C/Folic Acid (Nephro-Wilma) 1 tab PO DAILY [facility] Last Admin: 07/06/18 08:46 Dose: 1 tab - Labs Labs: 07/05/18 09:10 07/05/18 09:10 PT 14.5 Seconds (9.8-13.1) H 07/01/18 11:26 INR 1.3 07/01/18 11:26 APTT 27.6 Seconds (25.6-37.1) 06/24/18 10:46
[2018-07-06] MEDS: Meropenem 500 MG in Sodium Chloride 0.9% 100 ML IVPB SCH (15:23)
[2018-07-07] MEDS: metroNIDAZOLE 500mg/100ml NS 250 MG in Premixed IV 1 EA IVPB SCH ×3 (00:59→16:33)
[2018-07-07] MEDS: metOLazone 2.5 MG TAB PO SCH ×2 (09:20→16:32)
[2018-07-07] MEDS: Potassium Chloride 20 mEq ER Tab PO SCH ×2 (09:21→16:32)
[2018-07-07] MEDS: Multivitamin Vitamin B Complex (Nephro-Vite) Tab PO SCH (09:22)
--- NOTE | 2018-07-07 12:41 | CP.PCM.PN ---
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 also on iron , MVI supplement lytes as needed monitor k - currently on standing k may need to reduce or hold as k has been slowly trending up but last within normal limit monitor for renal recovery s: feels ok no n/v no cp sob Physical Examination: General Appearance: uncomfortable, in no acute respiratory distress, co- operative . Vitals reviewed and noted as below Head; Atraumatic, normocephalic ENT: no ulcers no thrush. Tongue is midline. Oropharynx: no rash or ulcers. EYES: Pupils are equal, round and reactive to light accommodation. Eye muscles and extraocular movement intact. Sclera is anicteric. Neck; supple no lymphadenopathy, no thyromegaly or bruit Lungs: Normal respiratory rate/effort. Breath sounds bilateral reduced at bases Heart: Normal rate. s1s2 normal. No rub or gallop. Extremities: 1 + edema Neurological: Patient is alert, awake and oriented to person, place and time. No focal deficit. Strength bilateral appropriate and equal Skin: Warm and dry. Normal turgor. No rash. Palpitation: Normal elasticity for age Abdomen: Abdomen is soft. Bowel sounds +. There is no abdominal tenderness, no guarding/rigidity no organomegaly Psych: normal insight and normal affect/mood MSK: no joint tenderness or swelling. Digits and nails Objective - Vital Signs/Intake and Output Vital Signs (last 24 hours): Temp Pulse Resp BP Pulse Ox 97.6 F 54 L 20 136/48 L 97 07/07/18 12:25 07/07/18 12:25 07/07/18 12:25 07/07/18 12:25 07/07/18 12:25 Intake and Output: 07/07/18 07/07/18 06:59 18:59 Intake Total 250 Output Total 400 Balance -150 - Medications Medications: Current Medications Acetaminophen (Tylenol 325mg Tab) 650 mg PO Q6 PRN PRN Reason: Pain, Mild (1-3) Last Admin: 07/06/18 21:32 Dose: 650 mg Atorvastatin Calcium (Lipitor) 10 mg PO HS [facility] Last Admin: 07/06/18 21:30 Dose: 10 mg Epoetin Tommie (Procrit) 10,000 unit SC MWF [facility] Last Admin: 07/05/18 08:27 Dose: 10,000 unit Ergocalciferol (Drisdol 50,000 Intl Units Cap) 1 cap PO QWK [facility] Ferrous Sulfate (Feosol) 325 mg PO Q8 [facility] Last Admin: 07/07/18 09:20 Dose: 325 mg Hydralazine HCl (Apresoline) 50 mg PO Q8 [facility] Last Admin: 07/07/18 09:22 Dose: 50 mg Metronidazole 250 mg/ (Miscellaneous) 50 mls @ 50 mls/hr IVPB Q8 [facility]; Protocol Last Admin: 07/07/18 09:23 Dose: 50 mls/hr Meropenem 500 mg/ Sodium (Chloride) 100 mls @ 100 mls/hr IVPB Q24H [facility]; Protocol Last Admin: 07/06/18 15:23 Dose: 100 mls/hr Metolazone (Zaroxolyn) 2.5 mg PO BID [facility] Last Admin: 07/07/18 09:20 Dose: 2.5 mg Metoprolol Tartrate (Lopressor) 25 mg PO Q12 [facility] Last Admin: 07/07/18 09:21 Dose: 25 mg Potassium Chloride (K-Dur 20 Meq Er Tab) 20 meq PO BID [facility] Last Admin: 07/07/18 09:21 Dose: 20 meq Tamsulosin HCl (Flomax) 0.4 mg PO DAILY [facility] Last Admin: 07/07/18 09:20 Dose: 0.4 mg Thiamine HCl (Vitamin B1 Tab) 100 mg PO DAILY [facility] Last Admin: 07/07/18 09:22 Dose: 100 mg Torsemide (Demadex) 100 mg PO DAILY [facility] Last Admin: 07/07/18 09:21 Dose: 100 mg Vitamin B Complex/Vit C/Folic Acid (Nephro-Wilma) 1 tab PO DAILY [facility] Last Admin: 07/07/18 09:22 Dose: 1 tab - Labs Labs: 07/05/18 09:10 07/05/18 09:10 PT 14.5 Seconds (9.8-13.1) H 07/01/18 11:26 INR 1.3 07/01/18 11:26 APTT 27.6 Seconds (25.6-37.1) 06/24/18 10:46
[2018-07-07] MEDS: Meropenem 500 MG in Sodium Chloride 0.9% 100 ML IVPB SCH (14:56)
[2018-07-07 16:11] LABS: ALB/GLOB RATIO 0.8 (1.0-2.1); CALCIUM 8.7 mg/dL (8.4-10.2)
[2018-07-07 16:30] LABS: BASO # 0.1 K/uL (0.0-0.2); BASO % 0.8 % (0.0-2.0); EOS # 0.2 K/uL (0.0-0.7); EOS % 1.7 % (0.0-4.0); HEMOGLOBIN 8.8 g/dL (12.0-18.0); LYMPH % 9.9 % (20.0-40.0); MEAN CORPUSCULAR HEMOGLOBIN 26.4 pg (27.0-31.0); MEAN CORPUSCULAR HGB CONC 31.5 g/dL (33.0-37.0); MEAN PLATELET VOLUME 8.4 fl (7.2-11.7); MONO # 0.6 K/uL (0.0-0.8); MONO % 6.4 % (0.0-10.0); NEUT % 81.2 % (50.0-75.0); PLATELET COUNT 500 K/uL (130-400); RBC 3.33 Mil/uL (4.40-5.90); RED CELL DISTRIBUTION WIDTH 19.4 % (11.5-14.5); WHITE BLOOD COUNT 9.8 K/uL (4.8-10.8)
[2018-07-07 18:42] LABS: ANISOCYTOSIS SLIGHT; BANDS 2 % (0-2); EOSINOPHIL 2 % (0-7); HYPOCHROMIC SLIGHT; LYMPHOCYTE 7 % (20-50); MONOCYTE 6 % (0-10); NEUTROPHIL 80 % (42-75); PLATELET ESTIMATE MARKEDLY INCREASED (NORMAL); REACTIVE LYMPHOCYTES 3 % (0-0); TOTAL CELLS COUNTED 100
[2018-07-07 18:43] LABS: LARGE PLATELETS PRESENT; SCHISTOCYTES SLIGHT
--- NOTE | 2018-07-08 00:01 | CP.PCM.PN ---
Subjective - Date & Time of Evaluation Date of Evaluation: 07/07/18 Time of Evaluation: 15:00 - Subjective Subjective: Pt seen and assessed at bedside. Resting in bed and falling asleep. Less edematous than days prior, reports feeling well. As pt fell asleep during assessment, pulse dropped down to 37 bpm, A-fib on the monitor. Woke pt up and heart rate normalized. Otherwise no other complaints at this time. Review of Systems - Review of Systems All systems: reviewed and no additional remarkable complaints except - Musculoskeletal Additional comments: swelling Objective - Vital Signs/Intake and Output Vital Signs (last 24 hours): Temp Pulse Resp BP Pulse Ox 98.0 F 70 16 141/64 96 07/07/18 21:16 07/07/18 21:33 07/07/18 21:16 07/07/18 21:33 07/07/18 21:16 Intake and Output: 07/07/18 07/08/18 18:59 06:59 Intake Total 940 Output Total 675 Balance 265 - Medications Medications: Current Medications Acetaminophen (Tylenol 325mg Tab) 650 mg PO Q6 PRN PRN Reason: Pain, Mild (1-3) Last Admin: 07/06/18 21:32 Dose: 650 mg Atorvastatin Calcium (Lipitor) 10 mg PO HS [facility] Last Admin: 07/07/18 21:33 Dose: 10 mg Epoetin Tommie (Procrit) 10,000 unit SC MWF [facility] Last Admin: 07/05/18 08:27 Dose: 10,000 unit Ergocalciferol (Drisdol 50,000 Intl Units Cap) 1 cap PO QWK [facility] Ferrous Sulfate (Feosol) 325 mg PO Q8 [facility] Last Admin: 07/07/18 16:32 Dose: 325 mg Hydralazine HCl (Apresoline) 50 mg PO Q8 [facility] Last Admin: 07/07/18 16:33 Dose: 50 mg Metronidazole 250 mg/ (Miscellaneous) 50 mls @ 50 mls/hr IVPB Q8 [facility]; Protocol Last Admin: 07/07/18 16:33 Dose: 50 mls/hr Meropenem 500 mg/ Sodium (Chloride) 100 mls @ 100 mls/hr IVPB Q24H [facility]; Protocol Last Admin: 07/07/18 14:56 Dose: 100 mls/hr Metolazone (Zaroxolyn) 2.5 mg PO BID [facility] Last Admin: 07/07/18 16:32 Dose: 2.5 mg Metoprolol Tartrate (Lopressor) 25 mg PO Q12 [facility] Last Admin: 07/07/18 21:33 Dose: 25 mg Potassium Chloride (K-Dur 20 Meq Er Tab) 20 meq PO BID [facility] Last Admin: 07/07/18 16:32 Dose: 20 meq Tamsulosin HCl (Flomax) 0.4 mg PO DAILY [facility] Last Admin: 07/07/18 09:20 Dose: 0.4 mg Thiamine HCl (Vitamin B1 Tab) 100 mg PO DAILY [facility] Last Admin: 07/07/18 09:22 Dose: 100 mg Torsemide (Demadex) 100 mg PO DAILY [facility] Last Admin: 07/07/18 09:21 Dose: 100 mg Vitamin B Complex/Vit C/Folic Acid (Nephro-Wilma) 1 tab PO DAILY [facility] Last Admin: 07/07/18 09:22 Dose: 1 tab - Labs Labs: 07/07/18 16:26 07/07/18 14:41 PT 14.5 Seconds (9.8-13.1) H 07/01/18 11:26 INR 1.3 07/01/18 11:26 APTT 27.6 Seconds (25.6-37.1) 06/24/18 10:46 - Constitutional Appears: Well - Head Exam Head Exam: NORMOCEPHALIC - Eye Exam Eye Exam: EOMI, Normal appearance, PERRL Pupil Exam: NORMAL ACCOMODATION, PERRL - ENT Exam ENT Exam: Mucous Membranes Moist, Normal Exam - Neck Exam Neck Exam: Full ROM - Respiratory Exam Respiratory Exam: Decreased Breath Sounds - Cardiovascular Exam Cardiovascular Exam: Bradycardia, Irregular Rhythm - GI/Abdominal Exam Additional comments: edematous - Extremities Exam Extremities Exam: Pedal Edema Additional comments: 3+ pitting edema to BLE. - Back Exam Back Exam: NORMAL INSPECTION - Neurological Exam Neurological Exam: Alert, Awake - Psychiatric Exam Psychiatric exam: Normal Affect, Normal Mood - Skin Skin Exam: Dry, Normal Color, Warm Assessment and Plan (1) Chronic kidney disease (CKD) Status: Acute - Assessment and Plan (Free Text) Assessment: Assessment/Impression/Major Problems now: 1.) Anasarca/Chronic Renal Failure -Previously underwent hemodialysis, however it is on hold at this time. -Anasarca noticeably decreasing. -Nephrology consult appreciated. -Cardiology consult appreciated; made aware of bradycardia episode by nursing staff. -Consider decreasing or stopping beta-sahil if bradycardia persists.
[2018-07-08] MEDS: metroNIDAZOLE 500mg/100ml NS 250 MG in Premixed IV 1 EA IVPB SCH ×3 (00:06→17:50)
--- NOTE | 2018-07-08 00:13 | CP.PCM.PN ---
Subjective - Date & Time of Evaluation Date of Evaluation: 07/06/18 Time of Evaluation: 06:30 - Subjective Subjective: Pt seen and assessed at bedside. Resting comfortably in bed, no new complaints. Labs, Meds, and chart reviewed. Objective - Vital Signs/Intake and Output Vital Signs (last 24 hours): Temp Pulse Resp BP Pulse Ox 98.0 F 66 16 156/66 H 96 07/07/18 21:16 07/08/18 00:06 07/07/18 21:16 07/08/18 00:06 07/07/18 21:16 Intake and Output: 07/07/18 07/08/18 18:59 06:59 Intake Total 940 Output Total 675 Balance 265 - Medications Medications: Current Medications Acetaminophen (Tylenol 325mg Tab) 650 mg PO Q6 PRN PRN Reason: Pain, Mild (1-3) Last Admin: 07/06/18 21:32 Dose: 650 mg Atorvastatin Calcium (Lipitor) 10 mg PO HS [facility] Last Admin: 07/07/18 21:33 Dose: 10 mg Epoetin Tommie (Procrit) 10,000 unit SC MWF [facility] Last Admin: 07/05/18 08:27 Dose: 10,000 unit Ergocalciferol (Drisdol 50,000 Intl Units Cap) 1 cap PO QWK [facility] Ferrous Sulfate (Feosol) 325 mg PO Q8 [facility] Last Admin: 07/08/18 00:06 Dose: 325 mg Hydralazine HCl (Apresoline) 50 mg PO Q8 [facility] Last Admin: 07/08/18 00:06 Dose: 50 mg Metronidazole 250 mg/ (Miscellaneous) 50 mls @ 50 mls/hr IVPB Q8 [facility]; Protocol Last Admin: 07/08/18 00:06 Dose: 50 mls/hr Meropenem 500 mg/ Sodium (Chloride) 100 mls @ 100 mls/hr IVPB Q24H [facility]; Protocol Last Admin: 07/07/18 14:56 Dose: 100 mls/hr Metolazone (Zaroxolyn) 2.5 mg PO BID [facility] Last Admin: 07/07/18 16:32 Dose: 2.5 mg Metoprolol Tartrate (Lopressor) 25 mg PO Q12 [facility] Last Admin: 07/07/18 21:33 Dose: 25 mg Potassium Chloride (K-Dur 20 Meq Er Tab) 20 meq PO BID [facility] Last Admin: 07/07/18 16:32 Dose: 20 meq Tamsulosin HCl (Flomax) 0.4 mg PO DAILY [facility] Last Admin: 07/07/18 09:20 Dose: 0.4 mg Thiamine HCl (Vitamin B1 Tab) 100 mg PO DAILY [facility] Last Admin: 07/07/18 09:22 Dose: 100 mg Torsemide (Demadex) 100 mg PO DAILY [facility] Last Admin: 07/07/18 09:21 Dose: 100 mg Vitamin B Complex/Vit C/Folic Acid (Nephro-Wilma) 1 tab PO DAILY [facility] Last Admin: 07/07/18 09:22 Dose: 1 tab - Labs Labs: 07/07/18 16:26 07/07/18 14:41 PT 14.5 Seconds (9.8-13.1) H 07/01/18 11:26 INR 1.3 07/01/18 11:26 APTT 27.6 Seconds (25.6-37.1) 06/24/18 10:46 - Constitutional Appears: Older Than Stated Age - Head Exam Head Exam: NORMAL INSPECTION, NORMOCEPHALIC - Eye Exam Eye Exam: Normal appearance, PERRL Pupil Exam: PERRL - ENT Exam ENT Exam: Mucous Membranes Dry - Neck Exam Neck Exam: Full ROM, Normal Inspection - Respiratory Exam Respiratory Exam: Clear to Ausculation Bilateral - Cardiovascular Exam Cardiovascular Exam: REGULAR RHYTHM, +S1, +S2 - GI/Abdominal Exam GI & Abdominal Exam: Soft Additional comments: edema noted. - Extremities Exam Extremities Exam: Full ROM, Pedal Edema - Back Exam Back Exam: NORMAL INSPECTION - Neurological Exam Neurological Exam: Alert, Awake, Oriented x3 - Psychiatric Exam Psychiatric exam: Normal Affect, Normal Mood - Skin Skin Exam: Dry, Warm Assessment and Plan (1) Chronic kidney disease (CKD) Status: Acute - Assessment and Plan (Free Text) Assessment: Assessment/Impression/Major Problems now: 1.) CKD 4 -Nephrology consult appreciated. -Hemodialysis on hold; monitor Renal function studies. -Continue diuresis; monitor electrolytes and replenish accordingly. -Swelling decreasing at this time.
--- NOTE | 2018-07-08 09:43 | CP.PCM.DIS ---
Provider - Provider Date of Admission: 06/24/18 13:35 Attending physician: Josh Wallis MD Consults: 06/24/18 13:38 Nephrology Consult Stat Comment: Consulting Provider: Josse Gooden Consulting Physician: Josse Gooden Reason for Consult: RF, hypokalemia 06/24/18 17:43 Cardiology Consult Routine Comment: Consulting Provider: Ford Flores Consulting Physician: Ford Flores Reason for Consult: elevated bnp, afib 06/30/18 12:08 Infectious Disease Consult Routine Comment: Consulting Provider: Geraldo Ortiz Consulting Physician: Geraldo Ortiz Reason for Consult: elevated wbc , colitis Diagnosis - Discharge Diagnosis (1) Chronic kidney disease, stage IV (severe) Status: Chronic (2) Atrial fibrillation Status: Acute (3) HTN (hypertension) Status: Acute Hospital Course - Lab Results Lab Results: Micro Results 06/30/18 13:42 Blood Blood Culture - Final NO GROWTH AFTER 5 DAYS 06/30/18 13:42 Blood Gram Stain - Final TEST NOT PERFORMED 06/30/18 13:52 Blood Blood Culture - Final NO GROWTH AFTER 5 DAYS 06/30/18 13:52 Blood Gram Stain - Final TEST NOT PERFORMED 07/01/18 14:00 Stool Stool Culture - Final NO SALMONELLA, SHIGELLA OR CAMPYLOBACTER ISOLATED. 07/01/18 10:09 Urine,Clean Catch Urine Culture - Final No Growth (<1,000 CFU/ML) 06/27/18 22:30 Urine,Clean Catch Urine Culture - Final Gram Negative Francis Most Recent Lab Values WBC 9.8 K/uL (4.8-10.8) 07/07/18 16:26 RBC 3.33 Mil/uL (4.40-5.90) L 07/07/18 16:26 Hgb 8.8 g/dL (12.0-18.0) L 07/07/18 16:26 Hct 28.0 % (35.0-51.0) L 07/07/18 16:26 MCV 84.0 fl (80.0-94.0) 07/07/18 16:26 MCH 26.4 pg (27.0-31.0) L 07/07/18 16:26 MCHC 31.5 g/dL (33.0-37.0) L 07/07/18 16:26 RDW 19.4 % (11.5-14.5) H 07/07/18 16:26 Plt Count 500 K/uL (130-400) H 07/07/18 16:26 MPV 8.4 fl (7.2-11.7) 07/07/18 16:26 Neut % (Auto) 81.2 % (50.0-75.0) H 07/07/18 16:26 Lymph % (Auto) 9.9 % (20.0-40.0) L 07/07/18 16:26 [place] % (Auto) 6.4 % (0.0-10.0) 07/07/18 16: Eos % (Auto) 1.7 % (0.0-4.0) 07/07/18 16: Baso % (Auto) 0.8 % (0.0-2.0) 07/07/18 16:26 Neut # (Auto) 8.0 K/uL (1.8-7.0) H 07/07/18 16:26 Lymph # (Auto) 1.0 K/uL (1.0-4.3) 07/07/18 16:26 [place] # (Auto) 0.6 K/uL (0.0-0.8) 07/07/18 16:26 Eos # (Auto) 0.2 K/uL (0.0-0.7) 07/07/18 16:26 Baso # (Auto) 0.1 K/uL (0.0-0.2) 07/07/18 16:26 Neutrophils % (Manual) 80 % (42-75) H 07/07/18 16:26 Band Neutrophils % 2 % (0-2) 07/07/18 16:26 Lymphocytes % (Manual) 7 % (20-50) L 07/07/18 16:26 Reactive Lymphs % 3 % (0-0) H 07/07/18 16: Monocytes % (Manual) 6 % (0-10) 07/07/18 16:26 Eosinophils % (Manual) 2 % (0-7) 07/07/18 16:26 Platelet Estimate Markedly increased (NORMAL) H 07/07/18 16:26 Large Platelets Present 07/07/18 16:26 Hypochromasia (manual) Slight 07/07/18 16:26 Poikilocytosis (manual Slight 06/30/18 13:22 Anisocytosis (manual) Slight 07/07/18 16:26 Tear Drop Cells Slight 06/24/18 10:00 Ovalocytes Slight 06/30/18 13:22 Schistocytes Slight 07/07/18 16:26 ESR 113 mm/hr (0-20) H 06/30/18 13:22 PT 14.5 Seconds (9.8-13.1) H 07/01/18 11:26 INR 1.3 07/01/18 11:26 APTT 27.6 Seconds (25.6-37.1) 06/24/18 10:46 Sodium 136 mmol/l (132-148) 07/07/18 14:41 Potassium 4.8 MMOL/L (3.6-5.0) 07/07/18 14:41 Chloride 94 mmol/L (98-107) L 07/07/18 14:41 Carbon Dioxide 27 mmol/L (22-30) 07/07/18 14:41 Anion Gap 20 (10-20) 07/07/18 14:41 BUN 61 mg/dl (9-20) H 07/07/18 14:41 Creatinine 2.6 mg/dl (0.8-1.5) H 07/07/18 14:41 Est GFR ( Amer) 29 07/07/18 14:41 Est GFR (Non-Af Amer) 24 07/07/18 14:41 POC Glucose (mg/dL) 92 mg/dL (65-110) 06/24/18 09:08 Random Glucose 105 mg/dL (75-110) 07/07/18 14:41 Calcium 8.7 mg/dL (8.4-10.2) 07/07/18 14:41 Phosphorus 3.9 mg/dl (2.5-4.5) 07/01/18 05:00 Magnesium 2.1 MG/DL (1.6-2.3) 06/27/18 11:30 Total Bilirubin 0.5 mg/dl (0.2-1.3) 07/07/18 14:41 AST 44 U/L (17-59) 07/07/18 14:41 ALT 13 U/L (21-72) L 07/07/18 14:41 Alkaline Phosphatase 209 U/L (38-126) H 07/07/18 14:41 NT-Pro-B Natriuret Pep 58137 pg/ml (0-900) H 07/07/18 14:41 Total Protein 6.5 G/DL (6.3-8.2) 07/07/18 14:41 Albumin 3.0 g/dL (3.5-5.0) L D 07/07/18 14:41 Globulin 3.6 gm/dL (2.2-3.9) 07/07/18 14:41 Albumin/Globulin Ratio 0.8 (1.0-2.1) L 07/07/18 14:41 Procalcitonin 3.75 NG/ML (0.19-0.49) H 06/27/18 11:30 PTH Intact Whole Molec 80 pg/mL (14-64) H 06/25/18 20:50 Urine Color Yellow (YELLOW) 06/27/18 22:30 Urine Clarity Clear (Clear) 06/27/18 22:30 Urine pH 6.0 (5.0-8.0) 06/27/18 22:30 Ur Specific [place] 1.009 (1.003-1.030) 06/27/18 22:30 Urine Protein Negative mg/dL (NEGATIVE) 06/27/18 22:30 Urine Glucose (UA) Neg mg/dL (NEGATIVE) 06/27/18 22:30 Urine Ketones Negative mg/dL (NEGATIVE) 06/27/18 22:30 Urine Blood Negative (NEGATIVE) 06/27/18 22:30 Urine Nitrate Negative (NEGATIVE) 06/27/18 22:30 Urine Bilirubin Negative (NEGATIVE) 06/27/18 22:30 Urine Urobilinogen 0.2-1.0 mg/dL (0.2-1.0) 06/27/18 22:30 Ur Leukocyte Esterase Neg [place]/uL (Negative) 06/27/18 22:30 Urine RBC (Auto) < 1 /hpf (0-3) 06/27/18 22:30 Urine Microscopic WBC 1 /hpf (0-5) 06/27/18 22:30 Ur Squamous Epith Cells < 1 /hpf (0-5) 06/27/18 22:30 Ur Random Creatinine 61.4 mg/dL 06/26/18 11:27 U Random Total Protein 21.0 mg/dL (0.0-12.0) H 06/26/18 11:27 Hep Bs Antigen Negative (NEGATIVE) 06/29/18 09:50 Hep Bs Antibody Negative (NEGATIVE) 06/28/18 20:20 Hep Bs Antibody, Quant <5 mIU/mL (>or=10) L 06/29/18 09:50 Hep B Core IgM Ab Negative (NEGATIVE) 06/29/18 09:50 Hepatitis C Antibody Negative (NEGATIVE) 06/29/18 09:50 Influenza Typ A,B (EIA) Negative for flu a/b (NEGATIVE) 07/04/18 23:30 Blood Type A POSITIVE 06/24/18 10:46 Antibody Screen Negative 06/24/18 10:46 BBK History Checked Patient has bt 06/24/18 10:46 Discharge Exam - Head Exam Head Exam: NORMAL INSPECTION, NORMOCEPHALIC Discharge Plan - Follow Up Plan Condition: STABLE Disposition: HOME/ ROUTINE Instructions: Dependent Edema (DC), Chronic Kidney Disease (DC) Additional Instructions: follow up with in 1 week follow up with in 1 week [facility] VISITING [phone] Referrals: Josse Gooden MD [Staff Provider] - Thomas Bedolla MD [Staff Provider] -
[2018-07-08] MEDS: Potassium Chloride 20 mEq ER Tab PO SCH ×2 (10:17→17:52)
[2018-07-08] MEDS: Multivitamin Vitamin B Complex (Nephro-Vite) Tab PO SCH (10:18)
[2018-07-08] MEDS: metOLazone 2.5 MG TAB PO SCH ×2 (10:19→17:53)
[2018-07-08] MEDS: EPOETIN ALFA 10,000 UNIT/ML ML SC SCH (10:21)
--- NOTE | 2018-07-08 10:21 | CP.PCM.PN ---
Subjective - Date & Time of Evaluation Date of Evaluation: 07/08/18 Time of Evaluation: 10:20 - Subjective Subjective: Patient awake and conscious not in acute distress feeling much better His weight appears to be going down and responding better to this combination of diuretics We need to take the dialysis catheter out of dialysis for now Vital signs stable Objective - Vital Signs/Intake and Output Vital Signs (last 24 hours): Temp Pulse Resp BP Pulse Ox 98.1 F 61 20 139/64 100 07/08/18 08:38 07/08/18 08:38 07/08/18 08:38 07/08/18 08:38 07/08/18 08:38 Intake and Output: 07/08/18 07/08/18 06:59 18:59 Intake Total 50 Output Total 500 Balance -450 - Medications Medications: Current Medications Acetaminophen (Tylenol 325mg Tab) 650 mg PO Q6 PRN PRN Reason: Pain, Mild (1-3) Last Admin: 07/06/18 21:32 Dose: 650 mg Atorvastatin Calcium (Lipitor) 10 mg PO HS [facility] Last Admin: 07/07/18 21:33 Dose: 10 mg Epoetin Tommie (Procrit) 10,000 unit SC MWF [facility] Last Admin: 07/05/18 08:27 Dose: 10,000 unit Ergocalciferol (Drisdol 50,000 Intl Units Cap) 1 cap PO QWK [facility] Ferrous Sulfate (Feosol) 325 mg PO Q8 [facility] Last Admin: 07/08/18 00:06 Dose: 325 mg Hydralazine HCl (Apresoline) 50 mg PO Q8 [facility] Last Admin: 07/08/18 00:06 Dose: 50 mg Metronidazole 250 mg/ (Miscellaneous) 50 mls @ 50 mls/hr IVPB Q8 [facility]; Protocol Last Admin: 07/08/18 00:06 Dose: 50 mls/hr Meropenem 500 mg/ Sodium (Chloride) 100 mls @ 100 mls/hr IVPB Q24H [facility]; Protocol Last Admin: 07/07/18 14:56 Dose: 100 mls/hr Metolazone (Zaroxolyn) 2.5 mg PO BID [facility] Last Admin: 07/07/18 16:32 Dose: 2.5 mg Metoprolol Tartrate (Lopressor) 25 mg PO Q12 [facility] Last Admin: 07/07/18 21:33 Dose: 25 mg Potassium Chloride (K-Dur 20 Meq Er Tab) 20 meq PO BID [facility] Last Admin: 07/07/18 16:32 Dose: 20 meq Tamsulosin HCl (Flomax) 0.4 mg PO DAILY [facility] Last Admin: 07/07/18 09:20 Dose: 0.4 mg Thiamine HCl (Vitamin B1 Tab) 100 mg PO DAILY [facility] Last Admin: 07/07/18 09:22 Dose: 100 mg Torsemide (Demadex) 100 mg PO DAILY [facility] Last Admin: 07/07/18 09:21 Dose: 100 mg Vitamin B Complex/Vit C/Folic Acid (Nephro-Wilma) 1 tab PO DAILY [facility] Last Admin: 07/07/18 09:22 Dose: 1 tab - Labs Labs: 07/07/18 16:26 07/07/18 14:41 PT 14.5 Seconds (9.8-13.1) H 07/01/18 11:26 INR 1.3 07/01/18 11:26 APTT 27.6 Seconds (25.6-37.1) 06/24/18 10:46 - Constitutional Appears: No Acute Distress - Eye Exam Eye Exam: Conjunctival injection - ENT Exam ENT Exam: Mucous Membranes Moist - Neck Exam Neck Exam: absent: Lymphadenopathy - Respiratory Exam Respiratory Exam: NORMAL BREATHING PATTERN. absent: Chest Wall Tenderness - Cardiovascular Exam Cardiovascular Exam: absent: Gallop, JVD, Rubs - GI/Abdominal Exam GI & Abdominal Exam: Soft, Normal Bowel Sounds - Extremities Exam Extremities Exam: absent: Calf Tenderness - Back Exam Back Exam: absent: CVA tenderness (L), CVA tenderness (R) - Neurological Exam Neurological Exam: Alert - Psychiatric Exam Psychiatric exam: Normal Affect - Skin Skin Exam: absent: Cyanosis Assessment and Plan (1) Chronic kidney disease, stage IV (severe) Assessment & Plan: Acute Kidney Injury (N17.9) with refractory fluid overload Rt side heart failure Hypertensive Chronic Kidney Disease (I12.9) Chronic Kidney Disease (N18.4) Stage 4 Anemia (D64.9), hydrocoele Plan Hemodialysis on hold Continue diuretic Zaroxolyn 5 mg daily and torsemide 100 mg Follow-up with the blood tests intermittently as outpatient to monitor kidney function Daily weight And continue the rest of the medication including EPO for the anemia Status: Chronic (2) HTN (hypertension) Status: Acute (3) Hand swelling Status: Acute
[2018-07-08] MEDS: Meropenem 500 MG in Sodium Chloride 0.9% 100 ML IVPB SCH (15:43)
[2018-07-09] MEDS: metroNIDAZOLE 500mg/100ml NS 250 MG in Premixed IV 1 EA IVPB SCH ×2 (01:04→09:16)
[2018-07-09] MEDS: Multivitamin Vitamin B Complex (Nephro-Vite) Tab PO SCH (09:07)
[2018-07-09] MEDS: Potassium Chloride 20 mEq ER Tab PO SCH ×2 (09:07→18:37)
[2018-07-09] MEDS: metOLazone 2.5 MG TAB PO SCH ×2 (09:08→18:37)
--- NOTE | 2018-07-09 09:16 | CP.PCM.PN ---
Subjective - Date & Time of Evaluation Date of Evaluation: 07/09/18 Time of Evaluation: 09:15 - Subjective Subjective: Patient awake and conscious Vital signs stable Feeling good Objective - Vital Signs/Intake and Output Vital Signs (last 24 hours): Temp Pulse Resp BP Pulse Ox 98.5 F 61 18 133/64 98 07/09/18 08:50 07/09/18 08:50 07/09/18 08:50 07/09/18 09:08 07/09/18 08:50 Intake and Output: 07/09/18 07/09/18 06:59 18:59 Intake Total 290 Output Total 800 Balance -510 - Medications Medications: Current Medications Acetaminophen (Tylenol 325mg Tab) 650 mg PO Q6 PRN PRN Reason: Pain, Mild (1-3) Last Admin: 07/08/18 15:50 Dose: 650 mg Atorvastatin Calcium (Lipitor) 10 mg PO HS [facility] Last Admin: 07/08/18 22:10 Dose: 10 mg Epoetin Tommie (Procrit) 10,000 unit SC MWF [facility] Last Admin: 07/08/18 10:21 Dose: 10,000 unit Ergocalciferol (Drisdol 50,000 Intl Units Cap) 1 cap PO QWK [facility] Ferrous Sulfate (Feosol) 325 mg PO Q8 [facility] Last Admin: 07/09/18 09:09 Dose: 325 mg Hydralazine HCl (Apresoline) 50 mg PO Q8 [facility] Last Admin: 07/09/18 09:06 Dose: 50 mg Metronidazole 250 mg/ (Miscellaneous) 50 mls @ 50 mls/hr IVPB Q8 [facility]; Protocol Last Admin: 07/09/18 01:04 Dose: 50 mls/hr Meropenem 500 mg/ Sodium (Chloride) 100 mls @ 100 mls/hr IVPB Q24H [facility]; Protocol Last Admin: 07/08/18 15:43 Dose: 100 mls/hr Metolazone (Zaroxolyn) 2.5 mg PO BID [facility] Last Admin: 07/09/18 09:08 Dose: 2.5 mg Metoprolol Tartrate (Lopressor) 25 mg PO Q12 [facility] Last Admin: 07/09/18 09:08 Dose: 25 mg Potassium Chloride (K-Dur 20 Meq Er Tab) 20 meq PO BID [facility] Last Admin: 07/09/18 09:07 Dose: 20 meq Tamsulosin HCl (Flomax) 0.4 mg PO DAILY [facility] Last Admin: 07/09/18 09:07 Dose: 0.4 mg Thiamine HCl (Vitamin B1 Tab) 100 mg PO DAILY [facility] Last Admin: 07/09/18 09:07 Dose: 100 mg Torsemide (Demadex) 100 mg PO DAILY [facility] Last Admin: 07/09/18 09:07 Dose: 100 mg Vitamin B Complex/Vit C/Folic Acid (Nephro-Wilma) 1 tab PO DAILY [facility] Last Admin: 07/09/18 09:07 Dose: 1 tab - Labs Labs: 07/07/18 16:26 07/07/18 14:41 PT 14.5 Seconds (9.8-13.1) H 07/01/18 11:26 INR 1.3 07/01/18 11:26 APTT 27.6 Seconds (25.6-37.1) 06/24/18 10:46 - Constitutional Appears: No Acute Distress - Eye Exam Eye Exam: Conjunctival injection - ENT Exam ENT Exam: Mucous Membranes Moist - Neck Exam Neck Exam: absent: Lymphadenopathy - Cardiovascular Exam Cardiovascular Exam: absent: JVD, Rubs - GI/Abdominal Exam GI & Abdominal Exam: Soft, Normal Bowel Sounds - Back Exam Back Exam: absent: CVA tenderness (L), CVA tenderness (R) - Neurological Exam Neurological Exam: Alert - Psychiatric Exam Psychiatric exam: Normal Affect - Skin Skin Exam: absent: Cyanosis Assessment and Plan (1) Chronic kidney disease, stage IV (severe) Assessment & Plan: Acute Kidney Injury (N17.9) with refractory fluid overload Rt side heart failure Hypertensive Chronic Kidney Disease (I12.9) Chronic Kidney Disease (N18.4) Stage 4 Anemia (D64.9), hydrocoele Plan The weight coming down slowly and the anasarca continue to improve and the leg edema improving as well Hemodialysis on hold Continue diuretic Zaroxolyn 5 mg daily and torsemide 100 mg Follow-up with the blood tests intermittently as outpatient to monitor kidney function Daily weight And continue the rest of the medication including EPO for the anemia Status: Chronic (2) HTN (hypertension) Status: Acute (3) Hand swelling Status: Acute
--- NOTE | 2018-07-09 10:40 | CP.PCM.PN ---
Subjective - Date & Time of Evaluation Date of Evaluation: 07/08/18 Time of Evaluation: 10:00 - Subjective Subjective: patient seen and examined at bedside. Interim events noted No complaints offered at this time denies cp/sob/fever/chills. available diagnostic data reviewed Review of Systems All systems: reviewed and no additional remarkable complaints except mentioned above Objective Vital Signs Stable - Constitutional Appears: Non-toxic, No Acute Distress - Head Exam Head Exam: NORMAL INSPECTION - Eye Exam Eye Exam: Normal appearance - Respiratory Exam Respiratory Exam: NORMAL BREATHING PATTERN - Cardiovascular Exam Cardiovascular Exam: +S1, +S2 - GI/Abdominal Exam GI & Abdominal Exam: Soft - Neurological Exam Neurological Exam: Alert, Awake - Psychiatric Exam Psychiatric exam: Normal Affect, Normal Mood - Skin Skin Exam: Normal Color, Warm Assessment and Plan monitor vitals monitor labs Cont meds Cont tx consultants appreciated input dispo planning rest of plan as ordered Assessment and Plan (1) Chronic kidney disease, stage IV (severe) Status: Chronic (2) Atrial fibrillation Status: Acute (3) HTN (hypertension) Status: Acute
[2018-07-10] MEDS: Potassium Chloride 20 mEq ER Tab PO SCH (08:25)
[2018-07-10] MEDS: Multivitamin Vitamin B Complex (Nephro-Vite) Tab PO SCH (08:26)
[2018-07-10] MEDS: metOLazone 2.5 MG TAB PO SCH (08:26)
--- NOTE | 2018-07-10 12:23 | PCM.SURG1 ---
Surgeon's Initial Post Op Note - Surgeon's Notes Surgeon: Keagan Quiros MD Maintenance Plumber: [id number] Pre-Operative Diagnosis: Renal failure Operative Findings: Right IJ non tunneled HD catheter Post-Operative Diagnosis: Renal failure Operation Performed: HD catheter removed Specimen/Specimens Removed: none Estimated Blood Loss: EBL {In ML}: 2 Blood Products Given: N/A Drains Used: No Drains Post-Op Condition: Good Date of Surgery/Procedure: 07/10/18 Time of Surgery/Procedure: 12:00
[2018-07-10] MEDS ORDERED: Epoetin Alfa 4000 UNIT/ML Inj SC SCH (13:54)
--- NOTE | 2018-07-10 13:57 | CP.PCM.PN ---
Subjective - Date & Time of Evaluation Date of Evaluation: 07/10/18 Time of Evaluation: 13:56 - Subjective Subjective: Patient continued to improve feeling good Vital signs stable Objective - Vital Signs/Intake and Output Vital Signs (last 24 hours): Temp Pulse Resp BP Pulse Ox 98.2 F 60 18 135/60 100 07/10/18 12:50 07/10/18 12:50 07/10/18 12:50 07/10/18 12:50 07/10/18 12:50 - Medications Medications: Current Medications Acetaminophen (Tylenol 325mg Tab) 650 mg PO Q6 PRN PRN Reason: Pain, Mild (1-3) Last Admin: 07/08/18 15:50 Dose: 650 mg Atorvastatin Calcium (Lipitor) 10 mg PO HS [facility] Last Admin: 07/09/18 22:10 Dose: 10 mg Epoetin Tommie (Procrit) 4,000 unit SC MWF [facility] Ergocalciferol (Drisdol 50,000 Intl Units Cap) 1 cap PO QWK [facility] Ferrous Sulfate (Feosol) 325 mg PO Q8 [facility] Last Admin: 07/10/18 08:25 Dose: 325 mg Hydralazine HCl (Apresoline) 50 mg PO Q8 [facility] Last Admin: 07/10/18 08:24 Dose: 50 mg Meropenem 500 mg/ Sodium (Chloride) 100 mls @ 100 mls/hr IVPB Q24H [facility]; Protocol Last Admin: 07/08/18 15:43 Dose: 100 mls/hr Metolazone (Zaroxolyn) 2.5 mg PO BID [facility] Last Admin: 07/10/18 08:26 Dose: 2.5 mg Metoprolol Tartrate (Lopressor) 25 mg PO Q12 [facility] Last Admin: 07/10/18 08:25 Dose: 25 mg Potassium Chloride (K-Dur 20 Meq Er Tab) 20 meq PO BID [facility] Last Admin: 07/10/18 08:25 Dose: 20 meq Tamsulosin HCl (Flomax) 0.4 mg PO DAILY [facility] Last Admin: 07/10/18 08:25 Dose: 0.4 mg Thiamine HCl (Vitamin B1 Tab) 100 mg PO DAILY [facility] Last Admin: 07/10/18 08:26 Dose: 100 mg Torsemide (Demadex) 100 mg PO DAILY [facility] Last Admin: 02/13/19 08:25 Dose: 100 mg Vitamin B Complex/Vit C/Folic Acid (Nephro-Wilma) 1 tab PO DAILY [facility] Last Admin: 07/10/18 08:26 Dose: 1 tab - Labs Labs: 07/07/18 16:26 07/07/18 14:41 PT 14.5 Seconds (9.8-13.1) H 07/01/18 11:26 INR 1.3 07/01/18 11:26 APTT 27.6 Seconds (25.6-37.1) 06/24/18 10:46 - Constitutional Appears: No Acute Distress - Eye Exam Eye Exam: absent: Conjunctival injection - ENT Exam ENT Exam: Mucous Membranes Moist - Neck Exam Neck Exam: absent: Lymphadenopathy - Respiratory Exam Respiratory Exam: NORMAL BREATHING PATTERN. absent: Chest Wall Tenderness - GI/Abdominal Exam GI & Abdominal Exam: Soft, Normal Bowel Sounds - Extremities Exam Extremities Exam: absent: Calf Tenderness - Back Exam Back Exam: absent: CVA tenderness (L), CVA tenderness (R) - Neurological Exam Neurological Exam: Alert - Psychiatric Exam Psychiatric exam: Normal Affect - Skin Skin Exam: absent: Cyanosis Assessment and Plan (1) Chronic kidney disease, stage IV (severe) Assessment & Plan: Acute Kidney Injury (N17.9) with refractory fluid overload Rt side heart failure Hypertensive Chronic Kidney Disease (I12.9) Chronic Kidney Disease (N18.4) Stage 4 Anemia (D64.9), hydrocoele Plan The weight coming down slowly and the anasarca continue to improve and the leg edema improving as well Hemodialysis on hold Continue diuretic Zaroxolyn 5 mg daily and torsemide 100 mg Follow-up with the blood tests intermittently as outpatient to monitor kidney function Daily weight And continue the rest of the medication including EPO for the anemia Dialysis catheter is out today Repeat BMP and CBC Status: Chronic (2) HTN (hypertension) Status: Acute (3) Hand swelling Status: Acute
[2018-07-10 16:08] VITALS: BP 135/58; PULSE 56; RESP 20; TEMP 98.6; O2SAT 98
[2018-07-12] MEDS ORDERED: Epoetin Alfa 4000 UNIT/ML Inj SC SCH (09:00)
== END 2018-07-10 16:45 | DRG 291 ==
LOC: H.ER 09:01 → H.ERHOLD 13:35 → H.TEL 16:06
PROVIDERS: ADMIT Family Medicine; ATTEND Family Medicine
PROC: 05HM33Z Insertion of Infusion Device into Right Internal Jugular Vein, Percutaneous Approach (ICD-10-PCS; 2018-06-28)
PROC: 0TB13ZX Excision of Left Kidney, Percutaneous Approach, Diagnostic (ICD-10-PCS; principal; 2018-07-02 13:00)
PROC: 5A1D70Z Performance of Urinary Filtration, Intermittent, Less than 6 Hours Per Day (ICD-10-PCS; 2018-07-03)
PROC: 05PYX3Z Removal of Infusion Device from Upper Vein, External Approach (ICD-10-PCS; 2018-07-10)
PROC: 05HM33Z Insertion of Infusion Device into Right Internal Jugular Vein, Percutaneous Approach (ICD-10-PCS; 2018-07-10)
DX: I13.0 Hypertensive heart and chronic kidney disease with heart failure and stage 1 through stage 4 chronic kidney disease, or unspecified chronic kidney disease (principal); I50.33 Acute on chronic diastolic (congestive) heart failure; K29.71 Gastritis, unspecified, with bleeding; N18.4 Chronic kidney disease, stage 4 (severe); R18.8 Other ascites; N17.9 Acute kidney failure, unspecified; E87.6 Hypokalemia; I48.2 Chronic atrial fibrillation; D63.1 Anemia in chronic kidney disease; R00.1 Bradycardia, unspecified; I25.10 Atherosclerotic heart disease of native coronary artery without angina pectoris; E78.00 Pure hypercholesterolemia, unspecified; I08.1 Rheumatic disorders of both mitral and tricuspid valves; N40.0 Benign prostatic hyperplasia without lower urinary tract symptoms; N43.3 Hydrocele, unspecified; K52.9 Noninfective gastroenteritis and colitis, unspecified; M19.90 Unspecified osteoarthritis, unspecified site; E27.9 Disorder of adrenal gland, unspecified

== ENCOUNTER 2018-07-16 12:33 | Inpatient (IN) | payer MEDICARE, MEDICAID ==
--- NOTE | 2018-07-16 13:00 | ED PDOC ---
HPI: General Adult Time Seen by Provider: 07/16/18 12:49 Chief Complaint (Nursing): Abnormal Labs History Per: Patient Onset/Duration Of Symptoms: Unknown Current Symptoms Are (Timing): Still Present Additional Complaint(s): Referred by PMD for abnormal labs. Pt denies chest pain, SOB, Abd pain, nausea, vomiting or diarrhea. Past Medical History Vital Signs: Last Vital Signs Temp 98.2 F 07/16/18 12:52 Pulse 73 07/16/18 12:52 Resp 18 07/16/18 12:52 BP 126/52 L 07/16/18 12:52 Pulse Ox 100 07/16/18 12:52 - Medical History PMH: Arthritis, CAD, HTN, Hypercholesterolemia, End Stage Renal Disease, Chronic Kidney Disease Denies: HIV - Family History Family History: States: Unknown Family Hx - Immunization History Hx Tetanus Toxoid Vaccination: Yes (11/05/2012) Hx Influenza Vaccination: No Hx Pneumococcal Vaccination: No - Home Medications Home Medications: Ambulatory Orders Medication Instructions Recorded Zolpidem Tartrate [Ambien] 10 mg PO HS 05/22/18 Metoprolol Tartrate 25 mg PO Q12 #60 tablet 05/27/18 Atorvastatin [Lipitor] 10 mg PO HS 06/24/18 Ergocalciferol (Vitamin D2) 50,000 unit PO TH 06/24/18 [Vitamin D2] Tamsulosin [Flomax] 0.4 mg PO DAILY 06/24/18 Thiamine [Vitamin B1 Tab] 100 mg PO DAILY 06/24/18 Vitamin B Complex/Vit C/Folic 1 tab PO DAILY 06/24/18 [Nephro-Wilma] amLODIPine [Norvasc] 10 mg PO DAILY 06/24/18 Torsemide [Demadex] 100 mg PO DAILY tab 07/10/18 metOLazone [Zaroxolyn] 2.5 mg PO BID tab 07/10/18 Acetaminophen [Tylenol 325mg tab] 650 mg PO Q4 PRN 07/16/18 Acetaminophen [Tylenol 325mg tab] 650 mg PO Q4 PRN 07/16/18 Ferrous Sulfate [Feosol] 325 mg PO Q8 07/16/18 Mag Hydrox/Aluminum Hyd/Simeth 30 ml PO Q4 PRN 07/16/18 [Maalox Advanced Suspension] Magnesium Hydroxide [Milk Of 30 ml PO DAILY PRN 07/16/18 Magnesia] traMADol [Ultram] 50 mg PO Q6 PRN 07/16/18 traZODone [Desyrel] 50 mg PO HS 07/16/18 - Allergies Allergies/Adverse Reactions: Allergies Allergy/AdvReac Type Severity Reaction Status Date / Time No Known Allergies Allergy Verified 07/16/18 12:52 Review of Systems ROS Statement: Except As Marked, All Systems Reviewed And Found Negative Physical Exam - Reviewed Nursing Documentation Reviewed: Yes Vital Signs Reviewed: Yes - Physical Exam Appears: Positive for: Non-toxic, No Acute Distress Head Exam: Positive for: ATRAUMATIC, NORMAL INSPECTION, NORMOCEPHALIC Skin: Positive for: Normal Color, Warm, DRY Eye Exam: Positive for: EOMI, Normal appearance, PERRL ENT: Positive for: Normal ENT Inspection Neck: Positive for: Normal, Painless ROM Cardiovascular/Chest: Positive for: Regular Rate, Rhythm Respiratory: Positive for: CNT, Normal Breath Sounds Gastrointestinal/Abdominal: Positive for: Normal Exam, Soft Back: Positive for: Normal Inspection Extremity: Positive for: Normal ROM Neurologic/Psych: Positive for: Alert, Oriented - Laboratory Results Result Diagrams: 07/16/18 13:45 07/16/18 13:45 - ECG O2 Sat by Pulse Oximetry: 100 Medical Decision Making Medical Decision Makin Labs reviewed, patient with elevated BUN at 127 Will admit as pt will need dialysis Disposition - Clinical Impression Clinical Impression: Acute on chronic renal failure - Patient ED Disposition Is Patient to be Admitted: Yes - Disposition Disposition Time: 15:04 Condition: FAIR Forms: [facility] (Romanian) - Pt Status Changed To: Hospital Disposition Of: Inpatient - Admit Certification Admit to Inpatient:: After my assessment, the patient will require hospitalization for at least two midnights. This is because of the severity of symptoms shown, intensity of services needed, and/or the medical risk in this patient being treated as an outpatient. - POA Present On Arrival: None
[2018-07-16 13:55] LABS: BASO % 0.3 % (0.0-2.0); EOS % 0.1 % (0.0-4.0); HEMOGLOBIN 8.4 g/dL (12.0-18.0); LYMPH # 0.9 K/uL (1.0-4.3); LYMPH % 7.6 % (20.0-40.0); MEAN CELL VOLUME 81.4 fl (80.0-94.0); MEAN CORPUSCULAR HEMOGLOBIN 26.1 pg (27.0-31.0); MEAN CORPUSCULAR HGB CONC 32.1 g/dL (33.0-37.0); MEAN PLATELET VOLUME 8.5 fl (7.2-11.7); NEUT # 10.4 K/uL (1.8-7.0); PLATELET COUNT 464 K/uL (130-400); RBC 3.22 Mil/uL (4.40-5.90); RED CELL DISTRIBUTION WIDTH 20.3 % (11.5-14.5); WHITE BLOOD COUNT 12.4 K/uL (4.8-10.8)
[2018-07-16 14:22] LABS: ALB/GLOB RATIO 0.9 (1.0-2.1); ALBUMIN 3.2 g/dL (3.5-5.0)
[2018-07-16] MEDS ORDERED: Sodium Chloride 0.9% 1,000 ML IV STA (15:02)
[2018-07-16] MEDS ORDERED: Potassium Chloride 10 mEq ER Tab PO ONE ×2 (15:03→17:07)
[2018-07-16 15:04] LABS: LYMPHOCYTE 9 % (20-50); MONOCYTE 6 % (0-10); NEUTROPHIL 85 % (42-75); TOTAL CELLS COUNTED 100
[2018-07-16 15:06] LABS: ANISOCYTOSIS MODERATE; HYPOCHROMIC MODERATE; OVALOCYTES SLIGHT; PLATELET CLUMPS PRESENT; PLATELET ESTIMATE INCREASED (NORMAL)
--- NOTE | 2018-07-16 22:24 | CARD ---
APPROVED REPORT Date of service: 07/16/2018 EKG Measurement Heart [id number] <Conclusion> Normal sinus rhythm Septal infarct, age undetermined Abnormal ECG
[2018-07-17 08:08] LABS: BASO # 0.1 K/uL (0.0-0.2); BASO % 0.6 % (0.0-2.0); EOS % 0.2 % (0.0-4.0); HEMOGLOBIN 7.6 g/dL (12.0-18.0); LYMPH # 1.7 K/uL (1.0-4.3); LYMPH % 14.7 % (20.0-40.0); MEAN CORPUSCULAR HEMOGLOBIN 25.9 pg (27.0-31.0); MEAN CORPUSCULAR HGB CONC 31.6 g/dL (33.0-37.0); MEAN PLATELET VOLUME 8.6 fl (7.2-11.7); NEUT # 8.6 K/uL (1.8-7.0); NEUT % 75.5 % (50.0-75.0); RBC 2.92 Mil/uL (4.40-5.90); RED CELL DISTRIBUTION WIDTH 19.7 % (11.5-14.5); WHITE BLOOD COUNT 11.4 K/uL (4.8-10.8)
[2018-07-17 08:29] LABS: ALB/GLOB RATIO 0.8 (1.0-2.1); ALBUMIN 2.9 g/dL (3.5-5.0); CALCIUM 8.7 mg/dL (8.4-10.2)
--- NOTE | 2018-07-17 08:59 | CP.PCM.CON ---
History of Present Illness - History of Present Illness History of Present Illness: pt is seen and examined, full consult is dictated #[id number] 1. SHABNAM on ckd-3 sec to vigarous diuresis 2. dehydration 3. htn 4. dehydration 5. Anemia sec to fe deficiency start ivf 1/2 ns at 60 ml/hr hold lasix and metolazone no need start hd today, will monitor start iv fe, check stool for ob, cea, ca19-9, afp, psa bmp daily Past Patient History - Infectious Disease Hx of Infectious Diseases: None - Past Medical History & Family History Past Medical History?: Yes - Past Social History Smoking Status: Never Smoked - CARDIAC Hx Cardiac Disorders: Yes - PULMONARY Hx Respiratory Disorders: Yes - NEUROLOGICAL Hx Neurological Disorder: No - HEENT Hx HEENT Problems: No - RENAL Hx Chronic Kidney Disease: Yes - ENDOCRINE/METABOLIC Hx Endocrine Disorders: No - HEMATOLOGICAL/ONCOLOGICAL Hx Blood Disorders: No Hx Human Immunodeficiency Virus (HIV): No - INTEGUMENTARY Hx Dermatological Problems: No - MUSCULOSKELETAL/RHEUMATOLOGICAL Hx Arthritis: Yes - GASTROINTESTINAL Hx Gastrointestinal Disorders: No - GENITOURINARY/GYNECOLOGICAL Hx Genitourinary Disorders: Yes Hx Incontinence: Yes Other/Comment: severe scrotal swelling x2 mo - PSYCHIATRIC Hx Psychophysiologic Disorder: No Hx Substance Use: No - SURGICAL HISTORY Hx Surgeries: No - ANESTHESIA Hx Anesthesia: No Meds Allergies/Adverse Reactions: Allergies Allergy/AdvReac Type Severity Reaction Status Date / Time No Known Allergies Allergy Verified 07/16/18 12:52 - Medications Medications: Current Medications Acetaminophen (Tylenol 325mg Tab) 650 mg PO Q6 PRN PRN Reason: Pain, Mild (1-3) Amlodipine Besylate (Norvasc) 10 mg PO DAILY [facility] Atorvastatin Calcium (Lipitor) 10 mg PO HS [facility] Ergocalciferol (Drisdol 50,000 Intl Units Cap) 1 cap PO TH [facility] Ferrous Sulfate (Feosol) 325 mg PO Q8 [facility] Furosemide (Lasix) 40 mg IVP DAILY [facility] Metolazone (Zaroxolyn) 2.5 mg PO BID [facility] Metoprolol Tartrate (Lopressor) 25 mg PO Q12 [facility] Potassium Chloride (Klor-Con 10) 10 meq PO DAILY [facility] Tamsulosin HCl (Flomax) 0.4 mg PO DAILY [facility] Thiamine HCl (Vitamin B1 Tab) 100 mg PO DAILY [facility] Tramadol HCl (Ultram) 50 mg PO Q6 PRN PRN Reason: Pain, moderate (4-7) Trazodone HCl (Desyrel) 50 mg PO HS [facility] Vitamin B Complex/Vit C/Folic Acid (Nephro-Wilma) 1 tab PO DAILY [facility] Results - Vital Signs Recent Vital Signs: Last Vital Signs Temp 98.1 F 07/17/18 08:00 Pulse 66 07/17/18 08:00 Resp 18 07/17/18 08:00 BP 130/51 L 07/17/18 08:00 Pulse Ox 94 L 07/17/18 08:00 - Labs Result Diagrams: 07/17/18 07:54 07/17/18 07:54 Labs: Laboratory Results - last 24 hr 07/16/18 07/16/18 07/16/18 13:45 13:45 16:55 WBC 12.4 H RBC 3.22 L Hgb 8.4 L Hct 26.2 L MCV 81.4 D MCH 26.1 L MCHC 32.1 L RDW 20.3 H Plt Count 464 H MPV 8.5 Neut % (Auto) 84.0 H Lymph % (Auto) 7.6 L [place] % (Auto) 8.0 Eos % (Auto) 0.1 Baso % (Auto) 0.3 Neut # (Auto) 10.4 H Lymph # (Auto) 0.9 L [place] # (Auto) 1.0 H Eos # (Auto) 0.0 Baso # (Auto) 0.0 Neutrophils % (Manual) 85 H Lymphocytes % (Manual) 9 L Monocytes % (Manual) 6 Platelet Estimate Increased H Plt Clumps, EDTA Present Hypochromasia (manual) Moderate Anisocytosis (manual) Moderate Ovalocytes Slight Sodium 133 Potassium 3.2 L Chloride 88 L Carbon Dioxide 29 Anion Gap 19 BUN 127 H* D Creatinine 3.0 H Est GFR ( Amer) 25 Est GFR (Non-Af Amer) 21 Random Glucose 191 H Calcium 9.0 Total Bilirubin 0.6 AST 34 ALT 19 L D Alkaline Phosphatase 221 H NT-Pro-B Natriuret Pep Total Protein 6.7 Albumin 3.2 L Globulin 3.5 Albumin/Globulin Ratio 0.9 L Ur Random Creatinine 128.0 Ur Random Sodium Ur Random Potassium 07/16/18 07/17/18 07/17/18 16:55 07:54 07:54 WBC 11.4 H RBC 2.92 L Hgb 7.6 L Hct 23.9 L MCV 82.0 MCH 25.9 L MCHC 31.6 L RDW 19.7 H Plt Count 421 H MPV 8.6 Neut % (Auto) 75.5 H Lymph % (Auto) 14.7 L [place] % (Auto) 9.0 Eos % (Auto) 0.2 Baso % (Auto) 0.6 Neut # (Auto) 8.6 H Lymph # (Auto) 1.7 [place] # (Auto) 1.0 H Eos # (Auto) 0.0 Baso # (Auto) 0.1 Neutrophils % (Manual) Lymphocytes % (Manual) Monocytes % (Manual) Platelet Estimate Plt Clumps, EDTA Hypochromasia (manual) Anisocytosis (manual) Ovalocytes Sodium 136 Potassium 3.0 L Chloride 92 L Carbon Dioxide 31 H Anion Gap 16 BUN 131 H* Creatinine 2.7 H Est GFR ( Amer) 28 Est GFR (Non-Af Amer) 23 Random Glucose 95 Calcium 8.7 Total Bilirubin 0.6 AST 40 ALT 27 Alkaline Phosphatase 194 H NT-Pro-B Natriuret Pep 7500 H Total Protein 6.3 Albumin 2.9 L Globulin 3.4 Albumin/Globulin Ratio 0.8 L Ur Random Creatinine Ur Random Sodium 219 Ur Random Potassium 67.9
[2018-07-17] MEDS ORDERED: metOLazone 2.5 MG TAB PO SCH (09:00)
[2018-07-17] MEDS: Multivitamin Vitamin B Complex (Nephro-Vite) Tab PO SCH (09:01)
[2018-07-17] MEDS: Potassium Chloride 10 mEq ER Tab PO SCH (09:05)
--- NOTE | 2018-07-17 09:33 | RAD ---
Date of service: 07/17/2018 HISTORY: eval pulmonary vascular congestion COMPARISON: Portable chest FINDINGS: LUNGS: 06/27/2018. PLEURA: No significant pleural effusion identified, no pneumothorax apparent. CARDIOVASCULAR: Calcific atherosclerotic changes are seen related to the thoracic aorta. Cardiomegaly. No pulmonary vascular congestion. OSSEOUS STRUCTURES: No significant abnormalities. VISUALIZED UPPER ABDOMEN: Normal. OTHER FINDINGS: None. IMPRESSION: Cardiomegaly. No interval infiltrate or pulmonary vascular congestion. No pleural effusion bilaterally.
[2018-07-17 14:14] LABS: IRON 10 ug/dL (49-181)
[2018-07-17 14:18] LABS: % IRON SATURATION 6 % (20-55); TOTAL IRON BINDING CAPACITY 170 ug/dL (250-450)
[2018-07-17] MEDS: Sodium Chloride 0.45% 1,000 ML IV SCH (16:22)
--- NOTE | 2018-07-17 22:06 | CP.PCM.HP ---
History of Present Illness - History of Present Illness History of Present Illness: HPI: 72 y/o Male with a PMH of CKD, ESRD, HTN known from prior admission, was sent from [facility] for acute on chronic renal failure. On previous admission, pt received several dialysis sessions before renal function improved. BUN and creatinine are 127 and 3.0 on admission; GFR 21. PMH: Arthritis, CAD, HTN, Hypercholesterolemia, ESRD, CKD. Dialysis on last admission only. PSH: None. Family Hx: Unknown. Meds: See MAR. Allergies: NKDA. Present on Admission - Present on Admission Any Indicators Present on Admission: No Review of Systems - Review of Systems All systems: reviewed and no additional remarkable complaints except Review of Systems: generalized body pain Past Patient History - Infectious Disease Hx of Infectious Diseases: None - Past Medical History & Family History Past Medical History?: Yes - Past Social History Smoking Status: Never Smoked - CARDIAC Hx Cardiac Disorders: Yes - PULMONARY Hx Respiratory Disorders: Yes - NEUROLOGICAL Hx Neurological Disorder: No - HEENT Hx HEENT Problems: No - RENAL Hx Chronic Kidney Disease: Yes Hx Dialysis: Yes (from previous admission) Hx Renal Failure: Yes - ENDOCRINE/METABOLIC Hx Endocrine Disorders: No - HEMATOLOGICAL/ONCOLOGICAL Hx Blood Disorders: No Hx Human Immunodeficiency Virus (HIV): No - INTEGUMENTARY Hx Dermatological Problems: No - MUSCULOSKELETAL/RHEUMATOLOGICAL Hx Arthritis: Yes - GASTROINTESTINAL Hx Gastrointestinal Disorders: No - GENITOURINARY/GYNECOLOGICAL Hx Genitourinary Disorders: Yes Hx Incontinence: Yes Other/Comment: severe scrotal swelling x2 mo - PSYCHIATRIC Hx Psychophysiologic Disorder: No Hx Substance Use: No - SURGICAL HISTORY Hx Surgeries: No - ANESTHESIA Hx Anesthesia: No Meds Allergies/Adverse Reactions: Allergies Allergy/AdvReac Type Severity Reaction Status Date / Time No Known Allergies Allergy Verified 07/16/18 12:52 Physical Exam - Head Exam Head Exam: NORMOCEPHALIC - Eye Exam Eye Exam: EOMI, Normal appearance, PERRL Pupil Exam: NORMAL ACCOMODATION - ENT Exam ENT Exam: Mucous Membranes Dry - Neck Exam Neck exam: Positive for: Normal Inspection - Respiratory Exam Respiratory Exam: Clear to Auscultation Bilateral - Cardiovascular Exam Cardiovascular Exam: REGULAR RHYTHM, +S1, +S2 - GI/Abdominal Exam GI & Abdominal Exam: Normal Bowel Sounds, Soft - Extremities Exam Extremities exam: Positive for: pedal edema Additional comments: 1+ BLE edema (non-pitting) - Back Exam Back exam: NORMAL INSPECTION - Neurological Exam Neurological exam: Alert, Normal Gait, Oriented x3 - Psychiatric Exam Psychiatric exam: Normal Affect, Normal Mood - Skin Skin Exam: Dry, Normal Color, Warm Results - Vital Signs Recent Vital Signs: Last Vital Signs Temp 99.5 F 07/17/18 19:48 Pulse 84 07/17/18 21:53 Resp 20 07/17/18 19:48 BP 146/64 07/17/18 21:53 Pulse Ox 92 L 07/17/18 19:48 - Labs Result Diagrams: 07/17/18 07:54 07/17/18 07:54 Labs: Laboratory Results - last 24 hr 07/17/18 07/17/18 07/17/18 07:54 07:54 12:10 WBC 11.4 H RBC 2.92 L Hgb 7.6 L Hct 23.9 L MCV 82.0 MCH 25.9 L MCHC 31.6 L RDW 19.7 H Plt Count 421 H MPV 8.6 Neut % (Auto) 75.5 H Lymph % (Auto) 14.7 L [place] % (Auto) 9.0 Eos % (Auto) 0.2 Baso % (Auto) 0.6 Neut # (Auto) 8.6 H Lymph # (Auto) 1.7 [place] # (Auto) 1.0 H Eos # (Auto) 0.0 Baso # (Auto) 0.1 Retic Count Sodium 136 Potassium 3.0 L Chloride 92 L Carbon Dioxide 31 H Anion Gap 16 BUN 131 H* Creatinine 2.7 H Est GFR ( Amer) 28 Est GFR (Non-Af Amer) 23 Random Glucose 95 Calcium 8.7 Iron TIBC % Saturation Ferritin Total Bilirubin 0.6 AST 40 ALT 27 Alkaline Phosphatase 194 H NT-Pro-B Natriuret Pep 7500 H Total Protein 6.3 Albumin 2.9 L Globulin 3.4 Albumin/Globulin Ratio 0.8 L Blood Type A POSITIVE Antibody Screen Negative Crossmatch See Detail BBK History Checked Patient has bt 07/17/18 07/17/18 07/17/18 12:10 12:11 12:11 WBC RBC Hgb Hct MCV MCH MCHC RDW Plt Count MPV Neut % (Auto) Lymph % (Auto) [place] % (Auto) Eos % (Auto) Baso % (Auto) Neut # (Auto) Lymph # (Auto) [place] # (Auto) Eos # (Auto) Baso # (Auto) Retic Count 1.1 Sodium Potassium Chloride Carbon Dioxide Anion Gap BUN Creatinine Est GFR ( Amer) Est GFR (Non-Af Amer) Random Glucose Calcium Iron 10 L TIBC 170 L % Saturation 6 L Ferritin 180.0 Total Bilirubin AST ALT Alkaline Phosphatase NT-Pro-B Natriuret Pep Total Protein Albumin Globulin Albumin/Globulin Ratio Blood Type Antibody Screen Crossmatch BBK History Checked Assessment & Plan (1) Acute on chronic renal failure Assessment and Plan: 1.) Acute on Chronic Renal Failure -Renal consult appreciated. -Diuretics discontinued. -hydration with 1/2 NS @ 60 ml/hr. -eval need for dialysis if worsening renal function. -will need 1 unit PRBC for hgb < 8. Status: Acute
[2018-07-18] MEDS: Sodium Chloride 0.45% 1,000 ML IV SCH ×2 (01:51→16:17)
[2018-07-18 05:24] LABS: HEMOGLOBIN 8.5 g/dL (12.0-18.0); MEAN CELL VOLUME 82.2 fl (80.0-94.0); MEAN CORPUSCULAR HGB CONC 31.6 g/dL (33.0-37.0); RBC 3.26 Mil/uL (4.40-5.90); WHITE BLOOD COUNT 12.5 K/uL (4.8-10.8)
[2018-07-18 05:49] LABS: ALB/GLOB RATIO 0.8 (1.0-2.1); ALBUMIN 2.9 g/dL (3.5-5.0); CALCIUM 8.8 mg/dL (8.4-10.2)
[2018-07-18] MEDS ORDERED: Ergocalciferol 50,000 Intl Units Cap PO SCH (06:38)
--- NOTE | 2018-07-18 07:45 | CON ---
DATE: 07/17/2018 RENAL CONSULTATION LOCATION: The patient is located in room 416, bed 2. REQUESTED BY: Thomas Bedolla MD; and Angel Wallis M.D. REASON FOR RENAL CONSULTATION: Increased BUN and creatinine for further evaluation. HISTORY OF PRESENT ILLNESS: Mr. Bailon is a 72-year-old elderly [place] male with a past medical history significant for hypertension, hyperlipidemia, chronic kidney disease, history of temporary hemodialysis who is a resident of a [facility], was sent from the [facility] with a worsening renal function and for further evaluation. The patient denies any nausea, vomiting, diarrhea. Denies any fever, cough, shortness of breath. Denies any dizziness. Complains of not feeling well for the last few days. The patient is not in acute distress. The patient is on diuretics, metolazone, and torsemide in the [facility]. His baseline creatinine is about 1.6 about ten days ago and complains of pain in legs. PAST MEDICAL HISTORY: Significant for hypertension, hyperlipidemia, chronic kidney disease, CAD, arthritis. PAST SURGICAL HISTORY: Denies. ALLERGIES: NO KNOWN DRUG ALLERGIES. SOCIAL HISTORY: The patient is an ex-smoker. Quit more than 20 years ago. Used to smoke one pack per day. No alcohol. No drug abuse. PERSONAL HISTORY: He is single. He has two children. FAMILY HISTORY: Not significant. MEDICATIONS FROM THE CARE HOME: Include as follows: Trazodone, tramadol, metolazone 2.5 mg p.o. b.i.d., amlodipine 10 mg daily, Ambien, Nephro-Wilma, torsemide 100 mg p.o. daily, thiamine, Flomax, metoprolol, Milk of Magnesia, and ferrous sulfate 325 mg p.o. every 8 hours, vitamin D2 of 50,000 units p.o. every weekly, Lipitor 10 mg at bedtime, Tylenol. REVIEW OF SYSTEMS: Significant for a good generalized weakness, not feeling well for few days, and pain in both legs. All other review of systems are reviewed and are negative. PHYSICAL EXAMINATION: VITAL SIGNS: As follows: His blood pressure is 130/51, pulse 66, respirations 18, temperature 98.1, saturations 96%. Height 5 feet 5 inches. Weight is 160 pounds. GENERAL: Mr. Bailon is a 72-year-old elderly male moderately built, moderately nourished, not in acute distress. HEENT: Pupils normal and reactive to light and accommodation. Conjunctivae pink. Sclerae anicteric. Tongue is dry. Trachea is midline. No thyroid enlargement. LUNGS: Symmetric on both sides. Bilateral breath sounds present. Clear to auscultation. CARDIOVASCULAR SYSTEM: [place] at the fifth intercostal space, midclavicular line. S1, S2 audible. No murmur or gallop. ABDOMEN: Normal in appearance. Soft, tympanitic. No guarding. No rigidity. No hepatosplenomegaly. CENTRAL NERVOUS SYSTEM: The patient is alert, awake, oriented x2. Sensory and motor system is within normal limits. EXTREMITIES: No cyanosis. No clubbing. No edema. CURRENT LABORATORY DATA: Include as follows: As of 07/16/2018, WBC 12.4, hemoglobin 8.4, hematocrit is 26.2, platelets 464. Sodium 133, potassium 3.2, chloride 88, CO2 of 29, BUN 127, creatinine is 3, and glucose 191. Calcium is 9, total bili is 0.6, AST 34, ALT 19, alkaline phosphatase 221, total protein 6.7, albumin is 3.2. Urine lytes, urine creatinine is 128. Urine sodium is 219. Urine potassium is 67.7. His current laboratory of 07/17/2018: WBC 11.4, hemoglobin 7.6, hematocrit is 23.9, and platelets 421. Sodium is 136, potassium is 3, chloride 92, CO2 of 31, BUN 131, creatinine 2.7, glucose 95. Calcium 8.7, total bili 0.6, AST 40, ALT 27, alkaline phosphatase 194. ProBNP 7500, total protein 6.3, albumin is 2.9, iron is 10, TIBC is 170, FeS 6%, and ferritin is 180. Other laboratory data from the previous admission as of 07/07/2018, BUN and creatinine 61 and 2.6. As of 07/05/2018, BUN and creatinine 37 and 2.4, and as of 05/22/2018, creatinine is 3.3. As of 05/23/2018, creatinine is 3. As of 05/27/2018, creatinine was 4. As of 07/02/2018, his creatinine was 1.6. As of 07/03/2018, creatinine was 2. As of 07/04/2018, creatinine 1.4. Other laboratory data, the echocardiogram report as of 05/22/2018, impression, estimated ejection fraction is 55% to 60%, left ventricular diastolic function cannot be assessed, and due to underlying atrial fibrillation, the left atrium is moderate to severely dilated and mild to moderate aortic regurgitation. There is moderate to severe mitral regurgitation. There is moderate to severe tricuspid regurgitation and right ventricular systolic pressure is calculated 51 mmHg and IVC dilated in size collapses to less than 50% inspiration. Kidney biopsy report is pending as of 07/02/2018. Other serology reports on the previous visit, hepatitis B surface antigen negative, surface antibody is negative. Also hepatitis B surface antibody quantitative is less than 5 and B core antibody IgM is negative, hepatitis C antibody is negative and influenza A and B antibody was also negative, and kidney biopsy report mild acute tubular injury and moderate atherosclerosis. IMPRESSION: In summary, Mr. Bailon is a 72-year-old elderly [place]ian male with a history of hypertension, chronic kidney disease with valvular disease with a baseline creatine about 2 to 3. His creatinine before discharge was 2.6 on 07/07/2018. 1. Chronic kidney disease, most likely secondary to hypertensive nephrosclerosis with recent ultrasound showing right kidney 10 cm and left kidney 9.2 cm as of 05/23/2018. 2. Hypertension. 3. Anemia secondary to iron deficiency and renal failure. PLAN: We will give gentle IV hydration, half-normal saline at 60 mL per hour, and we will also start him on IV iron Venofer 100 mg daily and check stool for occult blood and also check PSA level and also CA 19-9, alpha-fetoprotein level. Continue to monitor BMP, and we will hold the metolazone. We will hold the torsemide at this time. Continue to monitor BMP. We will follow with you. Thank you for allowing me to participate in your patient's care. Peña Vaughn MD
[2018-07-18] MEDS ORDERED: Iron Sucrose 100 mg/5 ml Inj IVP SCH (09:00)
[2018-07-18] MEDS: Multivitamin Vitamin B Complex (Nephro-Vite) Tab PO SCH (09:10)
[2018-07-18] MEDS: Potassium Chloride 10 mEq ER Tab PO SCH (09:21)
--- NOTE | 2018-07-18 11:33 | CP.PCM.PN ---
Subjective - Date & Time of Evaluation Date of Evaluation: 07/18/18 Time of Evaluation: 11:32 - Subjective Subjective: pt is seen and examined, follow up consult is dictated #[id number] c/w iv fluids supplement k+ bmp daily Objective - Vital Signs/Intake and Output Vital Signs (last 24 hours): Temp Pulse Resp BP Pulse Ox 98.4 F 73 18 123/54 L 94 L 07/18/18 08:02 07/18/18 09:10 07/18/18 08:02 07/18/18 09:10 07/18/18 08:02 Intake and Output: 07/18/18 07/18/18 06:59 18:59 Intake Total 150 Balance 150 - Medications Medications: Current Medications Acetaminophen (Tylenol 325mg Tab) 650 mg PO Q6 PRN PRN Reason: Pain, Mild (1-3) Last Admin: 07/18/18 05:22 Dose: 650 mg Amlodipine Besylate (Norvasc) 10 mg PO DAILY [facility] Last Admin: 07/18/18 09:10 Dose: 10 mg Atorvastatin Calcium (Lipitor) 10 mg PO HS [facility] Last Admin: 07/17/18 21:52 Dose: 10 mg Ergocalciferol (Drisdol 50,000 Intl Units Cap) 1 cap PO TH [facility] Last Admin: 07/18/18 05:40 Dose: 1 cap Iron Sucrose (Venofer) 100 mg IVP DAILY [facility] Stop: 07/28/18 09:01 Last Admin: 07/18/18 09:11 Dose: 100 mg Metoprolol Tartrate (Lopressor) 25 mg PO Q12 [facility] Last Admin: 07/18/18 09:09 Dose: 25 mg Potassium Chloride (Klor-Con 10) 10 meq PO DAILY [facility] Last Admin: 07/18/18 09:21 Dose: 10 meq Tamsulosin HCl (Flomax) 0.4 mg PO DAILY [facility] Last Admin: 07/18/18 09:08 Dose: 0.4 mg Thiamine HCl (Vitamin B1 Tab) 100 mg PO DAILY [facility] Last Admin: 07/18/18 09:11 Dose: 100 mg Trazodone HCl (Desyrel) 50 mg PO HS [facility] Last Admin: 07/17/18 21:51 Dose: 50 mg Vitamin B Complex/Vit C/Folic Acid (Nephro-Wilma) 1 tab PO DAILY [facility] Last Admin: 07/18/18 09:10 Dose: 1 tab - Labs Labs: 07/18/18 05:05 07/18/18 05:05
[2018-07-18] MEDS ORDERED: Potassium Chloride 20 mEq 100 ML IVPB ONE (11:34)
--- NOTE | 2018-07-18 16:02 | RAD ---
PROCEDURE: Right Hand Radiographs. HISTORY: pain; tenderness, swelling COMPARISON: None. FINDINGS: BONES: Diffuse osteopenia suggests osteoporosis which can limit the identification nondisplaced fractures. No definitive acute fractures identified however an old healed fracture of the 5th metacarpal bone is identified. Diffuse degenerative joint disease appreciate combined comprised of joint space narrowing, articular cortical sclerosis and occasional osteophyte development. The findings seen worst at the basal joint in the distal lateral wrist. No dislocation identified. Mild subluxation of the 1st metacarpal bone is seen laterally at the basal joint. A flexion deformity is suggested at the proximal and distal interphalangeal joints of the small digit JOINTS: Right hand. SOFT TISSUES: Normal. OTHER FINDINGS: None. IMPRESSION: 1. No acute fracture dislocation identified throughout the right hand although diffuse osteopenia suggests osteoporosis. This can limit the identification of nondisplaced fractures. 2. Old healed fracture 5th metacarpal bone. 3. Diffuse osteoarthritis, seen worst at the lateral distal right wrist as per above. 4. Flexion deformity right 5th digit.
[2018-07-18] MEDS ORDERED: MethylPREDNISolone 40 mg Vial IVP ONE (20:47)
--- NOTE | 2018-07-19 03:45 | PN ---
DATE: 07/18/2018 FOLLOWUP RENAL CONSULTATION LOCATION: The patient is located in room 416, bed 2. REQUESTED BY: Thomas Bedolla MD REASON FOR FOLLOWUP: Acute renal failure, chronic kidney disease, for further evaluation. SUBJECTIVE: Mr. Bailon is a 72-year-old elderly male with a past medical history significant for hypertension, hyperlipidemia, chronic kidney disease with a baseline creatine about 2 to 3, status post acute renal failure and status post hemodialysis three times during his last admission and discharged to retirement without any continuation of the hemodialysis with improvement in the renal function. The patient was admitted after in the retirement with worsening renal function. The patient is not in acute distress, but denies any chest pain, palpitation. Denies any nausea, vomiting, or diarrhea. Denies any abdominal pain. PHYSICAL EXAMINATION: VITAL SIGNS: As follows: Blood pressure 123/54, pulse 73, respirations 18, temperature 98.2, saturation 99%. Height 5 feet 5 inches and weight is 160 pounds. GENERAL: Mr. Bailon is a 72-year-old elderly male, moderately build, moderately nourished, not in acute distress. HEENT: Pupils normal and reactive to light and accommodation. Conjunctiva pink. Sclerae anicteric. Tongue is moist. Trachea is midline. LUNGS: Symmetric on both sides. Bilateral breath sounds present. Clear to auscultation. CARDIOVASCULAR SYSTEM: [place] at the fifth intercostal space, mid clavicular line. S1, S2 audible. No murmur or gallop. ABDOMEN: Normal in appearance. Soft, tympanitic. No guarding. No rigidity. No hepatosplenomegaly. CENTRAL NERVOUS SYSTEM: The patient is alert, awake, oriented x3. Nonfocal neuro examination. Cranial nerves II through XII grossly intact. Sensory and motor system is within normal limits. EXTREMITIES: No cyanosis, no clubbing, no edema. CURRENT MEDICATIONS: Include as follows: Trazodone 50 mg p.o. at bedtime, ergocalciferol one capsule p.o. 50,000 units weekly, Flomax 0.4 mg p.o. daily, Klor-Con 10 mEq p.o. daily, Lipitor 10 mg p.o. at bedtime, Lopressor 25 mg p.o. every 12 hours, NephroVite one tablet daily, amlodipine 10 mg daily, IV fluids half normal saline at 60 mL per hour, thiamine 100 mg p.o. daily, and Venofer 100 mg IV daily. LABORATORY DATA: Include as follows: As of 07/18/2018, WBC 12.5, hemoglobin 8.5, hematocrit 26.8, platelets 377. Sodium 134, potassium 3.3, chloride 99, CO2 of 27, BUN 126, creatinine 2.8, glucose is 112, calcium is 8.8, phosphorus 5.6, magnesium 1.7, GFR is about 22 mL, and serum uric acid level is 16.1, and total bili 0.9. AST 38, ALT 28, alkaline phosphatase 204, total protein 6.3, albumin is 2.9. Alpha fetoprotein 0.9, CEA 3.3, CA 19-9 is 16.5, PSA is 4.5. Stool for occult blood is positive. Other laboratory data: Blood cultures x2 negative from 07/17/2018. IMPRESSION: In summary, Mr. Bailon is a 72-year-old elderly male with history of hypertension, hyperlipidemia, chronic kidney disease, arthritis, pulmonary hypertension, moderate to severe tricuspid regurgitation, and moderate to severe mitral valve regurgitation and also moderate aortic regurgitation and moderate to severely dilated left atrium with left ventricular function about 55% to 60% and diastolic dysfunction with increased blood urea nitrogen and creatinine. 1. Acute renal failure, on chronic kidney disease stage 3. 2. Severe pulmonary hypertension. 3. Moderate to severe arthritis, moderate to severe tricuspid regurgitation, and moderate to severe mitral valve regurgitation. 4. Hypertension. 5. Anemia, secondary to renal failure and also iron deficiency and also slow gastrointestinal bleed. 6. Acute gouty arthritis with pain in the hand and redness. Uric acid is elevated at 16.1, most likely acute gouty arthritis secondary to hyperuricemia. PLAN: Continue IV fluids half normal saline at 60 mL/hour and continue to hold diuretics, and also we will give Solu-Medrol 40 mg IV piggy bag x1 dose. Repeat BMP in a.m. If renal function does not improve, the patient may need hemodialysis long-term, most likely two times a week. We will follow with you. Thank you for allowing me to participate in your patient's care. Discussed with the nurse practitioner in rounds and also supplement KCl 20 mEq IV piggy bag x1 dose. Peña Vaughn MD [facility] # [phone]
[2018-07-19] MEDS: Sodium Chloride 0.45% 1,000 ML IV SCH ×2 (05:26→15:18)
[2018-07-19 05:29] LABS: HEMOGLOBIN 9.5 g/dL (12.0-18.0); MEAN CELL VOLUME 82.2 fl (80.0-94.0); MEAN CORPUSCULAR HEMOGLOBIN 26.3 pg (27.0-31.0); RBC 3.61 Mil/uL (4.40-5.90); RED CELL DISTRIBUTION WIDTH 18.6 % (11.5-14.5)
[2018-07-19 06:06] LABS: CALCIUM 9.1 mg/dL (8.4-10.2); URIC ACID 16.7 mg/Dl (3.5-8.5)
[2018-07-19] MEDS: Potassium Chloride 10 mEq ER Tab PO SCH (08:24)
[2018-07-19] MEDS: Multivitamin Vitamin B Complex (Nephro-Vite) Tab PO SCH (08:25)
--- NOTE | 2018-07-19 19:14 | CP.PCM.PN ---
Subjective - Date & Time of Evaluation Date of Evaluation: 07/19/18 Time of Evaluation: 19:13 - Subjective Subjective: pt is seen and examined, follow up consult is dictated #[id number] Objective - Vital Signs/Intake and Output Vital Signs (last 24 hours): Temp Pulse Resp BP Pulse Ox 97.9 F 61 17 125/53 L 99 07/19/18 15:56 07/19/18 15:56 07/19/18 15:56 07/19/18 15:56 07/19/18 15:56 Intake and Output: 07/19/18 07/20/18 18:59 06:59 Intake Total 2250 Output Total 750 Balance 1500 - Medications Medications: Current Medications Acetaminophen (Tylenol 325mg Tab) 650 mg PO Q6 PRN PRN Reason: Pain, Mild (1-3) Last Admin: 07/19/18 15:13 Dose: 650 mg Allopurinol (Zyloprim) 100 mg PO DAILY [facility] Last Admin: 07/19/18 17:45 Dose: 100 mg Amlodipine Besylate (Norvasc) 10 mg PO DAILY [facility] Last Admin: 07/19/18 08:25 Dose: 10 mg Atorvastatin Calcium (Lipitor) 10 mg PO HS [facility] Last Admin: 07/18/18 22:10 Dose: 10 mg Ergocalciferol (Drisdol 50,000 Intl Units Cap) 1 cap PO TH [facility] Last Admin: 07/18/18 05:40 Dose: 1 cap Sodium Chloride (Sodium Chloride 0.45%) 1,000 mls @ 60 mls/hr IV .[id number] [facility] Stop: 07/20/18 09:04 Last Admin: 07/19/18 15:18 Dose: 60 mls/hr Iron Sucrose 100 mg/ Sodium (Chloride) 105 mls @ 105 mls/hr IVPB DAILY [facility] Last Admin: 07/19/18 11:51 Dose: 105 mls/hr Metoprolol Tartrate (Lopressor) 25 mg PO Q12 [facility] Last Admin: 07/19/18 08:24 Dose: 25 mg Potassium Chloride (Klor-Con 10) 10 meq PO DAILY [facility] Last Admin: 07/19/18 08:24 Dose: 10 meq Tamsulosin HCl (Flomax) 0.4 mg PO DAILY [facility] Last Admin: 07/19/18 08:24 Dose: 0.4 mg Thiamine HCl (Vitamin B1 Tab) 100 mg PO DAILY [facility] Last Admin: 07/19/18 08:25 Dose: 100 mg Trazodone HCl (Desyrel) 50 mg PO [facility] Last Admin: 07/18/18 22:10 Dose: 50 mg Vitamin B Complex/Vit C/Folic Acid (Nephro-Wilma) 1 tab PO DAILY [facility] Last Admin: 07/19/18 08:25 Dose: 1 tab - Labs Labs: 07/19/18 05:10 07/19/18 05:10
[2018-07-20] MEDS: Sodium Chloride 0.45% 1,000 ML IV SCH (02:00)
--- NOTE | 2018-07-20 03:44 | PN ---
DATE: 07/19/2018 FOLLOWUP RENAL CONSULTATION LOCATION: The patient is located in room 416, bed 2. REQUESTED BY: Thomas Bedolla MD REASON FOR RENAL CONSULTATION: Acute renal failure, chronic kidney disease. SUBJECTIVE: Mr. Bailon is a 72-year-old elderly male with a past medical history significant for hypertension, hyperlipidemia, CAD, arthritis, chronic kidney disease, who was recently admitted to [facility] with fluid overload and worsening renal function, status post hemodialysis x3-4 sessions. Subsequently, hemodialysis was discontinued and the patient was sent to subacute rehab. Now, the patient was admitted from the group home with worsening renal function. The patient was receiving metolazone and torsemide with BUN and creatinine more than 130 over 3. The patient is not in acute distress. Denies any chest pain or palpitation. Denies any fever, cough. No abdominal pain. The patient complains of generalized joint pains and also complains of right wrist swelling and finger swelling and pain. The patient felt better after the IV steroids yesterday. PHYSICAL EXAMINATION: VITAL SIGNS: As follows: Blood pressure 125/53, pulse 61, respirations 17, temperature 97.9, and saturation 99%. Height 5 feet 3 inches. Weight is 160 pounds. GENERAL: Mr. Bailon is a 72-year-old elderly male, moderately built, moderately nourished, not in acute distress. HEENT: Pupils are normal, reactive to light and accommodation. Conjunctivae pink. Sclerae anicteric. Tongue is moist. Trachea is midline. LUNGS: Symmetric on both sides. Bilateral breath sounds present. Clear to auscultation. CARDIOVASCULAR SYSTEM: [place] at the fifth intercostal space and midclavicular line. S1 and S2 audible. No murmur or gallop. ABDOMEN: Normal in appearance, soft, tympanitic. No guarding. No rigidity. No hepatosplenomegaly. CENTRAL NERVOUS SYSTEM: The patient is alert, awake, and oriented x2-3. Sensory and motor system is within normal limits. EXTREMITIES: No cyanosis, no clubbing, and no edema. The patient has mild tenderness in both knees and the right knee is swollen. Right wrist and right fingers are swollen and tenderness present, diffuse. MEDICATIONS: Include as follows; trazodone 50 mg p.o. at bedtime, ergocalciferol 50,000 units p.o. every weekly, Flomax 0.4 mg p.o. daily, Venofer 100 mg daily, Klor-Con 10 mEq p.o. daily, Lipitor 10 mg p.o. at bedtime, metoprolol 25 mg p.o. every 12 hours, NephroVite one tablet daily, amlodipine 10 mg daily, IV fluids half normal saline at 60 mL/hour, Tylenol, thiamine 100 mg p.o. daily, allopurinol 100 mg p.o. daily. LABORATORY DATA: Include as follows: As of 07/19/2018, WBC 11, hemoglobin 9.5, hematocrit is 29.7, and platelets 411. Sodium 133, potassium 4.7, chloride 91, CO2 of 25, BUN 128, creatinine 2.9, glucose is 127, calcium 9.1, and uric acid 16.7. As of 07/18/2018; Alpha fetoprotein 0.9, CEA 3.3, CA19-9 is 16.5, PSA is 4.5. Calcium 8.1 and PTH is 81. Stool for occult blood was positive. ASSESSMENT: In summary, Mr. Bailon is a 72-year-old elderly male with a history of hypertension, hyperlipidemia, coronary artery disease, arthritis, chronic kidney disease. 1. Acute renal failure on chronic kidney disease. 2. Hyperazotemia. 3. Hypertension. 4. Anemia secondary to renal failure. 5. Rule out acute gouty arthritis. PLAN: Continue intravenous fluids half normal saline at 60 mL/hour. Continue Solu-Medrol 20 mg intravenous piggyback x1 dose today. Repeat labs in a.m. If renal function does not improve, the patient may need to start renal replacement therapy. Discussed with the patient's daughter and the patient at bedside. Peña Vaughn MD
[2018-07-20] MEDS ORDERED: methylPREDNISolone 20 MG in Sodium Chloride 0.9% 50 ML IVPB SCH (09:00)
[2018-07-20] MEDS ORDERED: MethylPREDNISolone 40 mg Vial IVP SCH (09:00)
[2018-07-20] MEDS: Potassium Chloride 10 mEq ER Tab PO SCH (09:25)
[2018-07-20] MEDS: Multivitamin Vitamin B Complex (Nephro-Vite) Tab PO SCH (09:25)
--- NOTE | 2018-07-20 16:10 | CP.PCM.PN ---
Subjective - Date & Time of Evaluation Date of Evaluation: 07/20/18 Time of Evaluation: 16:10 - Subjective Subjective: pt is seen and examined, follow up consult is dictated #[id number] pt will benefit from renal replacement therapy check bmp in am Objective - Vital Signs/Intake and Output Vital Signs (last 24 hours): Temp Pulse Resp BP Pulse Ox 97.4 F L 55 L 18 120/61 94 L 07/20/18 13:10 07/20/18 13:10 07/20/18 13:10 07/20/18 13:10 07/20/18 13:10 - Medications Medications: Current Medications Acetaminophen (Tylenol 325mg Tab) 650 mg PO Q6 PRN PRN Reason: Pain, Mild (1-3) Last Admin: 07/19/18 15:13 Dose: 650 mg Allopurinol (Zyloprim) 100 mg PO DAILY [facility] Last Admin: 07/20/18 09:25 Dose: 100 mg Amlodipine Besylate (Norvasc) 10 mg PO DAILY [facility] Last Admin: 07/20/18 09:25 Dose: 10 mg Atorvastatin Calcium (Lipitor) 10 mg PO HS [facility] Last Admin: 07/19/18 21:26 Dose: 10 mg Ergocalciferol (Drisdol 50,000 Intl Units Cap) 1 cap PO TH [facility] Last Admin: 07/18/18 05:40 Dose: 1 cap Iron Sucrose 100 mg/ Sodium (Chloride) 105 mls @ 105 mls/hr IVPB DAILY [facility] Last Admin: 07/20/18 09:23 Dose: 105 mls/hr Methylprednisolone (Solu-Medrol) 20 mg IVP SAT [facility] Last Admin: 07/20/18 09:25 Dose: 20 mg Metoprolol Tartrate (Lopressor) 25 mg PO Q12 [facility] Last Admin: 07/20/18 09:25 Dose: 25 mg Potassium Chloride (Klor-Con 10) 10 meq PO DAILY [facility] Last Admin: 07/20/18 09:25 Dose: 10 meq Tamsulosin HCl (Flomax) 0.4 mg PO DAILY [facility] Last Admin: 07/20/18 09:25 Dose: 0.4 mg Thiamine HCl (Vitamin B1 Tab) 100 mg PO DAILY [facility] Last Admin: 07/20/18 09:25 Dose: 100 mg Trazodone HCl (Desyrel) 50 mg PO HS [facility] Last Admin: 07/19/18 21:26 Dose: 50 mg Vitamin B Complex/Vit C/Folic Acid (Nephro-Wilma) 1 tab PO DAILY [facility] Last Admin: 07/20/18 09:25 Dose: 1 tab - Labs Labs: 07/19/18 05:10 07/19/18 05:10
[2018-07-20 17:18] LABS: CALCIUM 8.6 mg/dL (8.4-10.2); URIC ACID 16.5 mg/Dl (3.5-8.5)
--- NOTE | 2018-07-20 17:41 | CP.PCM.PN ---
Subjective - Date & Time of Evaluation Date of Evaluation: 07/18/18 Time of Evaluation: 11:00 - Subjective Subjective: patient seen and examined at bedside. Interim events noted right hand pain, after IV attempts denies cp/sob/fever/chills. available diagnostic data reviewed Review of Systems All systems: reviewed and no additional remarkable complaints except mentioned above Objective Vital Signs Stable - Constitutional Appears: Non-toxic, No Acute Distress Head Exam: NORMAL INSPECTION Eye Exam: Normal appearance Respiratory Exam: NORMAL BREATHING PATTERN Cardiovascular Exam: +S1, +S2 GI & Abdominal Exam: Soft Neurological Exam: Alert, Awake Psychiatric exam: Normal Affect, Normal Mood Skin Exam: Normal Color, Warm Assessment and Plan monitor vitals monitor labs Cont meds Cont tx right hand xray check uric acid consultants appreciated input rest of plan as ordered Assessment and Plan (1) Acute on chronic renal failure Status: Acute
--- NOTE | 2018-07-20 17:43 | CP.PCM.PN ---
Subjective - Date & Time of Evaluation Date of Evaluation: 07/20/18 Time of Evaluation: 11:00 - Subjective Subjective: patient seen and examined at bedside. Interim events noted No complaints offered at this time, hand pain improving denies cp/sob/fever/chills. available diagnostic data reviewed Review of Systems All systems: reviewed and no additional remarkable complaints except mentioned above Objective Vital Signs Stable - Constitutional Appears: Non-toxic, No Acute Distress Head Exam: NORMAL INSPECTION Eye Exam: Normal appearance Respiratory Exam: NORMAL BREATHING PATTERN Cardiovascular Exam: +S1, +S2 GI & Abdominal Exam: Soft Neurological Exam: Alert, Awake Psychiatric exam: Normal Affect, Normal Mood Skin Exam: Normal Color, Warm Assessment and Plan monitor vitals monitor labs Cont meds Cont tx cont steroids consultants appreciated input rest of plan as ordered Assessment and Plan (1) Acute on chronic renal failure Status: Acute (2) Hyperuricemia Status: Acute
[2018-07-21 01:33] LABS: U CREAT 24HOUR URINE 527.8 mg/24hr (800-2800); URINE CREATININE 75.4 mg/dl
[2018-07-21 01:34] LABS: URINE CREATININE 75.4 mg/dL
--- NOTE | 2018-07-21 03:04 | PN ---
DATE: 07/20/2018 FOLLOWUP RENAL CONSULTATION LOCATION: The patient is located in room 416, bed 2. REQUESTED BY: Thomas Bedolla MD REASON FOR RENAL CONSULTATION: Acute renal failure, chronic kidney disease, for further evaluation. SUBJECTIVE: Mr. Bailon is a 72-year-old elderly male with a past medical history significant for arthritis, CAD, hypertension, hyperlipidemia, chronic kidney disease stage IV, status post kidney biopsy consistent with mild ATN and arteriosclerosis, status post hemodialysis x3-4 during his last admission. Subsequently, the patient was discharged to subacute rehab. Now, the patient was admitted with worsening renal function from the rehab. The patient was on Zaroxolyn and torsemide. The patient was found to have worsening BUN and creatinine on admission and also dehydrated, started on gentle IV hydration. The patient denies any chest pain or palpitation. Denies any fever or cough. No abdominal pain. No nausea, vomiting or diarrhea. Complains of joint pains and also swelling and pain in the right wrist and fingers. The patient was given Solu-Medrol yesterday and also day before yesterday. The symptoms are improving. Not in distress this afternoon. No chest pain. PHYSICAL EXAMINATION: VITAL SIGNS: Blood pressure 120/61, pulse 55, respirations 18, temperature 97.4, saturation 94%. Height 5 feet 5 inches, weight is 160 pounds. GENERAL: Mr. Bailon is a 72-year-old elderly male, moderately built, moderately nourished, not in acute distress. HEENT: Pupils are normal, reacting to light and accommodation. Conjunctivae pink. Sclerae anicteric. Tongue is moist. NECK: Trachea is midline. LUNGS: Symmetric on both sides. Bilateral breath sounds present, clear to auscultation. CARDIOVASCULAR SYSTEM: [place] at the fifth intercostal space, midclavicular line. S1 and S2 audible. No murmur or gallop. ABDOMEN: Normal in appearance. Soft, tympanitic. No guarding. No rigidity. No hepatosplenomegaly. CENTRAL NERVOUS SYSTEM: The patient is alert, awake and oriented x3. Nonfocal neuro examination. Cranial nerves II through XII are grossly intact. Sensory and motor system is within normal limits. EXTREMITIES: No cyanosis, no clubbing, no edema. MEDICATIONS: His current medications include as follows: Trazodone 50 mg p.o. at bedtime, ergocalciferol 50,000 units every week, Flomax 0.4 mg p.o. daily, iron sucrose 100 mg daily, Klor-Con 10 mEq p.o. daily, Lipitor 10 mg p.o. at bedtime, metoprolol 25 mg p.o. every 12 hours, Nephro-Wilma one tablet daily, amlodipine 10 mg p.o. daily, Solu-Medrol 20 mg IV start x1 one dose given today, Tylenol, thiamine 100 mg p.o. daily, allopurinol 100 mg p.o. daily. LABORATORY DATA: Include as follows: As of 07/20/2018, sodium 129, potassium 5.1, chloride 90, CO2 of 23, BUN 148, creatinine 2.9, glucose 235, calcium 8.6. Uric acid is 6.5. ASSESSMENT AND PLAN: In summary, Mr. Bailon is a 72-year-old elderly male with a history of hypertension, hyperlipidemia, chronic kidney disease, arthritis, pulmonary hypertension and xpolynrw-uc-qzssmh tricuspid regurgitation and mitral regurgitation with increasing blood urea nitrogen and creatinine. 1. Ujviu-va-vieekqb kidney disease. 2. Acute gouty arthritis with hyperuricemia. 3. Hypertension. 4. Lfaihdao-ie-lreuhn pulmonary hypertension and also vfmfryzs-hz-xlcmpz tricuspid regurgitation and mitral valve regurgitation. Continue gentle hydration. Renal function remains stable. Increasing azotemia is secondary to possible steroids. The patient will benefit from the renal replacement therapy. Repeat BMP in a.m. We will discuss with the patient's family in a.m. If agrees, we will consider temporarily catheter placement and hemodialysis. We will follow with you. Thank you for allowing me to participate in your patient's care. Peña Vaughn MD
[2018-07-21 06:15] LABS: HEMOGLOBIN 8.6 g/dL (12.0-18.0); MEAN CELL VOLUME 81.3 fl (80.0-94.0); MEAN CORPUSCULAR HEMOGLOBIN 26.5 pg (27.0-31.0); MEAN CORPUSCULAR HGB CONC 32.6 g/dL (33.0-37.0); RBC 3.25 Mil/uL (4.40-5.90); RED CELL DISTRIBUTION WIDTH 18.3 % (11.5-14.5); WHITE BLOOD COUNT 8.2 K/uL (4.8-10.8)
[2018-07-21 07:32] LABS: ALB/GLOB RATIO 0.7 (1.0-2.1); ALBUMIN 2.5 g/dL (3.5-5.0); CALCIUM 8.3 mg/dL (8.4-10.2)
[2018-07-21] MEDS: Multivitamin Vitamin B Complex (Nephro-Vite) Tab PO SCH (08:30)
[2018-07-21] MEDS: Potassium Chloride 10 mEq ER Tab PO SCH (08:42)
--- NOTE | 2018-07-21 13:05 | CP.PCM.PN ---
Subjective - Date & Time of Evaluation Date of Evaluation: 07/21/18 Time of Evaluation: 11:00 - Subjective Subjective: patient seen and examined at bedside. Interim events noted No complaints offered at this time, hand pain improving denies cp/sob/fever/chills. available diagnostic data reviewed Review of Systems All systems: reviewed and no additional remarkable complaints except mentioned above Objective Vital Signs Stable - Constitutional Appears: Non-toxic, No Acute Distress Head Exam: NORMAL INSPECTION Eye Exam: Normal appearance Respiratory Exam: NORMAL BREATHING PATTERN Cardiovascular Exam: +S1, +S2 GI & Abdominal Exam: Soft Neurological Exam: Alert, Awake Psychiatric exam: Normal Affect, Normal Mood Skin Exam: Normal Color, Warm Assessment and Plan monitor vitals monitor labs Cont meds Cont tx HD likely needed consultants appreciated input rest of plan as ordered Assessment and Plan (1) Acute on chronic renal failure Status: Acute (2) Hyperuricemia Status: Acute
[2018-07-21] MEDS: Sodium Chloride 0.45% 1,000 ML IV SCH (13:55)
--- NOTE | 2018-07-21 15:20 | CP.PCM.PN ---
Subjective - Date & Time of Evaluation Date of Evaluation: 07/21/18 Time of Evaluation: 15:20 - Subjective Subjective: pt is seen and examined, follow up consult is dictated #[id number] consider heather cath for hd if pt and his family agrees Objective - Vital Signs/Intake and Output Vital Signs (last 24 hours): Temp Pulse Resp BP Pulse Ox 97.8 F 55 L 20 131/64 99 07/21/18 12:50 07/21/18 12:50 07/21/18 12:50 07/21/18 12:50 07/21/18 12:50 - Medications Medications: Current Medications Acetaminophen (Tylenol 325mg Tab) 650 mg PO Q6 PRN PRN Reason: Pain, Mild (1-3) Last Admin: 07/20/18 21:08 Dose: 650 mg Allopurinol (Zyloprim) 100 mg PO DAILY [facility] Last Admin: 07/21/18 08:34 Dose: 100 mg Amlodipine Besylate (Norvasc) 10 mg PO DAILY [facility] Last Admin: 07/21/18 08:32 Dose: 10 mg Atorvastatin Calcium (Lipitor) 10 mg PO HS [facility] Last Admin: 07/20/18 21:04 Dose: 10 mg Ergocalciferol (Drisdol 50,000 Intl Units Cap) 1 cap PO TH [facility] Last Admin: 07/18/18 05:40 Dose: 1 cap Iron Sucrose 100 mg/ Sodium (Chloride) 105 mls @ 105 mls/hr IVPB DAILY [facility] Last Admin: 07/21/18 08:32 Dose: 105 mls/hr Sodium Chloride (Sodium Chloride 0.45%) 1,000 mls @ 60 mls/hr IV .[id number] [facility] Stop: 07/22/18 10:41 Last Admin: 07/21/18 13:55 Dose: 60 mls/hr Pantoprazole Sodium 40 mg/ (Sodium Chloride) 100 mls @ 250 mls/hr IVPB DAILY [facility] Methylprednisolone (Solu-Medrol) 20 mg IVP SAT [facility] Last Admin: 07/20/18 09:25 Dose: 20 mg Metoprolol Tartrate (Lopressor) 25 mg PO Q12 [facility] Last Admin: 07/21/18 08:31 Dose: 25 mg Potassium Chloride (Klor-Con 10) 10 meq PO DAILY [facility] Last Admin: 07/21/18 08:42 Dose: 10 meq Tamsulosin HCl (Flomax) 0.4 mg PO DAILY [facility] Last Admin: 07/21/18 08:30 Dose: 0.4 mg Thiamine HCl (Vitamin B1 Tab) 100 mg PO DAILY [facility] Last Admin: 07/21/18 08:33 Dose: 100 mg Trazodone HCl (Desyrel) 50 mg PO HS [facility] Last Admin: 07/20/18 21:04 Dose: 50 mg Vitamin B Complex/Vit C/Folic Acid (Nephro-Wilma) 1 tab PO DAILY [facility] Last Admin: 07/21/18 08:30 Dose: 1 tab - Labs Labs: 07/21/18 04:30 07/21/18 04:30
[2018-07-21] MEDS ORDERED: Pantoprazole 40 MG in Sodium Chloride 0.9% 100 ML IVPB SCH (15:30)
[2018-07-21] MEDS: Pantoprazole 40 mg EC Tab PO SCH (17:05)
--- NOTE | 2018-07-22 03:13 | PN ---
DATE: 07/21/2018 FOLLOWUP RENAL CONSULTATION LOCATION: The patient is located in room 416, bed 2. REQUESTED BY: Thomas Bedolla MD SUBJECTIVE: Mr. Bailon is about 72-year-old elderly male with a past medical history significant for longstanding hypertension, hyperlipidemia, chronic kidney disease stage III to IV, CAD, arthritis, who was sent from the half-way with worsening renal function, status post hemodialysis x3 to 4 treatments about a month ago with worsening renal failure and fluid overload. The patient is not in acute distress. Denies any headache or dizziness. Denies any chest pain or palpitation. Denies any fever or cough. No abdominal pain. No nausea, vomiting, or diarrhea. The patient is eager to go to [facility] his [facility] next week. The patient is not in distress. PHYSICAL EXAMINATION: VITAL SIGNS: As follows: Blood pressure this afternoon 131/64, pulse 55, respirations 20, temperature 97.8, and saturation 99%. Height 5 feet 5 inches and weight is 160 pounds. GENERAL: Mr. Bailon is a 72-year-old elderly male, moderately built, moderately nourished, not in acute distress. HEENT: Pupils are normal, reactive to light and accommodation. Conjunctivae pink. Sclerae anicteric. Tongue is moist and trachea is midline. LUNGS: Symmetric on both sides. Bilateral breath sounds present, clear to auscultation. CARDIOVASCULAR SYSTEM: [place] at the fifth intercostal space, midclavicular line. S1 and S2 audible. No murmur or gallop. ABDOMEN: Normal in appearance. Soft, tympanitic. No guarding. No rigidity. No hepatosplenomegaly. CENTRAL NERVOUS SYSTEM: The patient is alert, awake, and oriented x3. Nonfocal neuro examination. Cranial nerves II-XII grossly intact. Sensory and motor system within normal limits. EXTREMITIES: No cyanosis, no clubbing, no edema. CURRENT MEDICATIONS: Include as follows: Trazodone 50 mg p.o. at bedtime, ergocalciferol one capsule 50,000 units every week, Flomax 0.4 mg daily, Venofer 100 mg daily, Klor-Con 10 mEq p.o. daily, Lipitor 10 mg p.o. at bedtime, metoprolol 25 mg p.o. every 12 hours, Nephro-Wilma one tablet daily, amlodipine 10 mg daily, Protonix 40 mg p.o. daily, Tylenol, thiamine 100 mg p.o. daily, and allopurinol 100 mg p.o. daily. LABORATORY DATA: Currently include as follows: As of 07/21/2018, WBC 8.2, hemoglobin 8.6, hematocrit 26.4, MCV 81.3, and platelets 429. Sodium 130, potassium 4.8, chloride 94, CO2 of 20, BUN 156, creatinine 3, glucose 147, calcium 8.3, and total bili 0.4. AST 45, ALT 26, alkaline phosphatase 177, total protein 6, albumin 2.5. A 24-hour urine volume is 700 mL. Urine creatinine is 27 mg and 24-hour urine protein is 84. Creatinine clearance is 12 mL per minute. Other laboratory data as of 07/19/2018, iron is 10, TIBC is 170, saturation is 8, and ferritin is 180. Stool for occult blood is also positive as of 07/18/2018. Uric acid level was 16.5 as of 07/20/2018. ASSESSMENT AND PLAN: In summary, Mr. Bailon is a 72-year-old elderly male with a history of hypertension, hyperlipidemia, arthritis, coronary artery disease, chronic kidney disease status post acute kidney injury and chronic kidney disease status post hemodialysis x3 about a month ago, status post kidney biopsy consistent with mild acute tubular necrosis and arteriosclerosis, who was sent from the half-way with worsening renal function; on diuretics, metolazone and torsemide. The patient also found to have moderate to severe mitral regurgitation, moderate to severe tricuspid regurgitation, and also pulmonary artery systolic pressure about 51. 1. Acute renal failure, on chronic kidney disease versus progression of the chronic kidney disease to end-stage renal disease with worsening azotemia. The patient will benefit from the renal replacement therapy. Discussed with the patient's daughter on Sunday, agreed for possible initiation of hemodialysis on Sunday. We will discuss again in morning and if the patient and patient's family agrees, we will try to obtain Rashel catheter and we will start hemodialysis and we will consider changing to Perm-A-cath if the patient agrees from the chronic hemodialysis. 2. Hypertension. Blood pressure is stable. Continue his current medication. 3. Anemia secondary to multifactorial renal failure, iron deficiency, and slow gastrointestinal blood loss. Stool for occult blood is positive as of 07/18/2018. 4. Acute gouty arthritis, status post Solu-Medrol. Symptoms are improving and we will continue allopurinol 100 mg p.o. daily. Repeat CBC, CMP, phosphorus, and uric acid level in a.m. Consider Rashel catheter placement tomorrow, if the patient's family agrees for dialysis. We will follow with you. Thank you for allowing me to participate in your patient's care. Peña Vaughn MD
[2018-07-22] MEDS: Sodium Chloride 0.45% 1,000 ML IV SCH (03:30)
[2018-07-22 06:11] LABS: HEMOGLOBIN 9.1 g/dL (12.0-18.0); MEAN CELL VOLUME 81.3 fl (80.0-94.0); MEAN CORPUSCULAR HEMOGLOBIN 26.4 pg (27.0-31.0); MEAN CORPUSCULAR HGB CONC 32.4 g/dL (33.0-37.0); RBC 3.44 Mil/uL (4.40-5.90); RED CELL DISTRIBUTION WIDTH 18.6 % (11.5-14.5); WHITE BLOOD COUNT 9.2 K/uL (4.8-10.8)
[2018-07-22 06:21] LABS: ALB/GLOB RATIO 0.8 (1.0-2.1); ALBUMIN 2.7 g/dL (3.5-5.0); CALCIUM 8.5 mg/dL (8.4-10.2); URIC ACID 15.7 mg/Dl (3.5-8.5)
--- NOTE | 2018-07-22 07:06 | CP.PCM.PN ---
Subjective - Date & Time of Evaluation Date of Evaluation: 07/19/18 Time of Evaluation: 11:00 - Subjective Subjective: Patient remains stable Desires to have more fluids Has no chest pain or SOB. Labs BUN 128 Cr 2.9 Objective - Vital Signs/Intake and Output Vital Signs (last 24 hours): Temp Pulse Resp BP Pulse Ox 97.8 F 67 16 133/67 95 07/22/18 05:08 07/22/18 05:08 07/22/18 05:08 07/22/18 05:08 07/22/18 05:08 Intake and Output: 07/22/18 07/22/18 06:59 18:59 Intake Total 970 Output Total 400 Balance 570 - Medications Medications: Current Medications Acetaminophen (Tylenol 325mg Tab) 650 mg PO Q6 PRN PRN Reason: Pain, Mild (1-3) Last Admin: 07/22/18 03:46 Dose: 650 mg Allopurinol (Zyloprim) 100 mg PO DAILY [facility] Last Admin: 07/21/18 08:34 Dose: 100 mg Amlodipine Besylate (Norvasc) 10 mg PO DAILY [facility] Last Admin: 07/21/18 08:32 Dose: 10 mg Atorvastatin Calcium (Lipitor) 10 mg PO HS [facility] Last Admin: 07/21/18 21:07 Dose: 10 mg Ergocalciferol (Drisdol 50,000 Intl Units Cap) 1 cap PO TH [facility] Last Admin: 07/18/18 05:40 Dose: 1 cap Iron Sucrose 100 mg/ Sodium (Chloride) 105 mls @ 105 mls/hr IVPB DAILY [facility] Last Admin: 07/21/18 08:32 Dose: 105 mls/hr Sodium Chloride (Sodium Chloride 0.45%) 1,000 mls @ 60 mls/hr IV .[id number] [facility] Stop: 07/22/18 10:41 Last Admin: 07/22/18 03:30 Dose: 60 mls/hr Metoprolol Tartrate (Lopressor) 25 mg PO Q12 [facility] Last Admin: 07/21/18 21:07 Dose: Not Given Pantoprazole Sodium (Protonix Ec Tab) 40 mg PO DAILY [facility] Last Admin: 07/21/18 17:05 Dose: 40 mg Potassium Chloride (Klor-Con 10) 10 meq PO DAILY [facility] Last Admin: 07/21/18 08:42 Dose: 10 meq Tamsulosin HCl (Flomax) 0.4 mg PO DAILY [facility] Last Admin: 07/21/18 08:30 Dose: 0.4 mg Thiamine HCl (Vitamin B1 Tab) 100 mg PO DAILY [facility] Last Admin: 07/21/18 08:33 Dose: 100 mg Trazodone HCl (Desyrel) 50 mg PO HS [facility] Last Admin: 07/21/18 21:08 Dose: 50 mg Vitamin B Complex/Vit C/Folic Acid (Nephro-Wilma) 1 tab PO DAILY [facility] Last Admin: 07/21/18 08:30 Dose: 1 tab - Labs Labs: 07/22/18 05:55 07/22/18 05:55 APTT 31.5 Seconds (25.6-37.1) 07/22/18 05:55 - Head Exam Head Exam: NORMAL INSPECTION - Eye Exam Eye Exam: Normal appearance - ENT Exam ENT Exam: Mucous Membranes Moist - Respiratory Exam Respiratory Exam: Clear to Ausculation Bilateral - Cardiovascular Exam Cardiovascular Exam: REGULAR RHYTHM - GI/Abdominal Exam GI & Abdominal Exam: Normal Bowel Sounds - Neurological Exam Neurological Exam: Awake Assessment and Plan (1) Acute on chronic renal failure Status: Acute (2) Anemia Status: Acute (3) HTN (hypertension) Status: Acute (4) Dehydration Status: Acute (5) Chronic kidney disease, stage IV (severe) Status: Chronic - Assessment and Plan (Free Text) Plan: Cont meds COnt hydration Cont meds telemetry subacute rehab eval
[2018-07-22] MEDS: Multivitamin Vitamin B Complex (Nephro-Vite) Tab PO SCH (08:59)
[2018-07-22] MEDS: Pantoprazole 40 mg EC Tab PO SCH (09:01)
[2018-07-22] MEDS: Potassium Chloride 10 mEq ER Tab PO SCH (12:48)
--- NOTE | 2018-07-22 13:19 | CP.PCM.PN ---
Subjective - Date & Time of Evaluation Date of Evaluation: 07/22/18 Time of Evaluation: 13:19 - Subjective Subjective: pt is seen and examined, follow up consult is dictated #[id number] pt will need hd and heather cath dion Objective - Vital Signs/Intake and Output Vital Signs (last 24 hours): Temp Pulse Resp BP Pulse Ox 97.8 F 57 L 20 140/55 L 94 L 07/22/18 09:00 07/22/18 09:00 07/22/18 09:00 07/22/18 09:00 07/22/18 09:00 Intake and Output: 07/22/18 07/22/18 06:59 18:59 Intake Total 970 Output Total 400 Balance 570 - Medications Medications: Current Medications Acetaminophen (Tylenol 325mg Tab) 650 mg PO Q6 PRN PRN Reason: Pain, Mild (1-3) Last Admin: 07/22/18 03:46 Dose: 650 mg Allopurinol (Zyloprim) 100 mg PO DAILY [facility] Last Admin: 07/22/18 09:01 Dose: 100 mg Amlodipine Besylate (Norvasc) 10 mg PO DAILY [facility] Last Admin: 07/22/18 09:00 Dose: 10 mg Atorvastatin Calcium (Lipitor) 10 mg PO HS [facility] Last Admin: 07/21/18 21:07 Dose: 10 mg Ergocalciferol (Drisdol 50,000 Intl Units Cap) 1 cap PO TH [facility] Last Admin: 07/18/18 05:40 Dose: 1 cap Iron Sucrose 100 mg/ Sodium (Chloride) 105 mls @ 105 mls/hr IVPB DAILY [facility] Last Admin: 07/22/18 12:47 Dose: 105 mls/hr Metoprolol Tartrate (Lopressor) 25 mg PO Q12 [facility] Last Admin: 07/22/18 09:00 Dose: Not Given Pantoprazole Sodium (Protonix Ec Tab) 40 mg PO DAILY [facility] Last Admin: 07/22/18 09:01 Dose: 40 mg Potassium Chloride (Klor-Con 10) 10 meq PO DAILY [facility] Last Admin: 07/22/18 12:48 Dose: 10 meq Tamsulosin HCl (Flomax) 0.4 mg PO DAILY [facility] Last Admin: 07/22/18 09:01 Dose: 0.4 mg Thiamine HCl (Vitamin B1 Tab) 100 mg PO DAILY [facility] Last Admin: 07/22/18 09:01 Dose: 100 mg Trazodone HCl (Desyrel) 50 mg PO HS [facility] Last Admin: 07/21/18 21:08 Dose: 50 mg Vitamin B Complex/Vit C/Folic Acid (Nephro-Wilma) 1 tab PO DAILY [facility] Last Admin: 07/22/18 08:59 Dose: 1 tab - Labs Labs: 07/22/18 05:55 07/22/18 05:55 APTT 31.5 Seconds (25.6-37.1) 07/22/18 05:55
--- NOTE | 2018-07-22 15:36 | CP.PCM.PN ---
Subjective - Date & Time of Evaluation Date of Evaluation: 07/22/18 Time of Evaluation: 10:00 - Subjective Subjective: patient seen and examined at bedside. Interim events noted No complaints offered at this time denies cp/sob/fever/chills. available diagnostic data reviewed Review of Systems All systems: reviewed and no additional remarkable complaints except mentioned above Objective Vital Signs Stable - Constitutional Appears: Non-toxic, No Acute Distress Head Exam: NORMAL INSPECTION Eye Exam: Normal appearance Respiratory Exam: NORMAL BREATHING PATTERN Cardiovascular Exam: +S1, +S2 GI & Abdominal Exam: Soft Neurological Exam: Alert, Awake Psychiatric exam: Normal Affect, Normal Mood Skin Exam: Normal Color, Warm Assessment and Plan monitor vitals monitor labs Cont meds Cont tx HD needed consultants appreciated input rest of plan as ordered Assessment and Plan (1) Acute on chronic renal failure Status: Acute (2) Hyperuricemia Status: Acute
--- NOTE | 2018-07-23 04:09 | CON ---
DATE: 07/22/2018 FOLLOWUP RENAL CONSULTATION LOCATION: The patient is located in room 416, bed 2. REQUESTED BY: Thomas Bedolla MD REASON FOR FOLLOWUP: Acute renal failure and chronic kidney disease. HISTORY OF PRESENT ILLNESS: Mr. Bailon is a 72-year-old elderly male with a past medical history significant for hypertension, hyperlipidemia, chronic kidney disease, arthritis, CAD, status post acute renal failure, status post hemodialysis x2-3. During his last admission, he was admitted to rehab. From there, the patient was sent back to the hospital with worsening renal function. The patient was on metolazone and torsemide. His BUN/creatinine more than 130/3. The patient was also found to have hyperuricemia more than 16 with the joint pains, mostly in right wrist. The patient is feeling better now, and denies any headache or dizziness. Denies any chest pain or palpitation. Denies any fever or cough. No abdominal pain, no nausea, no vomiting, or diarrhea. CURRENT MEDICATIONS: His current medication list also include as follows: Trazodone 50 mg p.o. at bedtime, ergocalciferol 50,000 units one capsule p.o. every , Flomax 0.4 mg p.o. daily, Venofer 100 mg IV daily, Klor-Con 10 mEq p.o. daily, Lipitor 10 mg p.o. at bedtime, Lopressor 25 mg p.o. every 12 hours, Nephro-Wilma one tablet daily, amlodipine 10 mg, Protonix 40 mg p.o. daily, Tylenol, thiamine, and allopurinol 100 mg p.o. daily. LABORATORY DATA: Include as follows: WBC 9.2, hemoglobin 9.1, hematocrit is 28, and platelets 421. PT 31.5. Sodium 134, potassium 4.5, chloride 96, CO2 of 23, BUN 158, creatinine 3.4, glucose 89. Uric acid 15.7. Calcium 8.5, phosphorous 4.8, bilirubin 0.3, AST 76, ALT 50, alkaline phosphatase 202, total protein 6.1, albumin is 2.7. GFR is 12 mL per minute as of 07/21/2018. PHYSICAL EXAMINATION: As follows: VITAL SIGNS: Blood pressure 138/64, pulse 58, respirations 16, temperature 97.5, saturation 96%. Height 5 feet 5 inches, weight is 160 pounds. GENERAL: Mr. Bailon is a 72-year-old elderly male, moderately built, moderately nourished, not in acute distress. HEENT: Pupils normal and reactive to light and accommodation. Conjunctivae pink. Sclerae anicteric. Tongue is moist. Trachea is midline. LUNGS: Symmetric on both sides. Bilateral breath sounds present. Clear to auscultation. CARDIOVASCULAR: [place] at the fifth intercostal space and midclavicular line. S1 and S2 audible. No murmur or gallop. ABDOMEN: Normal in appearance, soft, tympanitic. No guarding, no rigidity. No hepatosplenomegaly. CENTRAL NERVOUS SYSTEM: The patient is alert, awake, oriented x3. Nonfocal neuro examination. Cranial nerves II through XII grossly intact. Sensory and motor system is within normal limits. EXTREMITIES: No cyanosis, no clubbing, and no edema. ASSESSMENT AND PLAN: In summary, Mr. Bailon is a 72-year-old elderly male with a history of hypertension, hyperlipidemia, benign prostatic hyperplasia, status post acute renal failure on chronic kidney disease, arthritis, coronary artery disease, was admitted from the senior care with worsening renal function and hyperuricemia. 1. Acute renal failure on chronic kidney disease, most likely secondary to vigorous diuresis with Zaroxolyn and also with torsemide. 2. Hyperuricemia, most likely secondary to diuretics. 3. Hypertension. 4. Coronary artery disease. The patient will benefit from the renal replacement therapy, left a message to the patient's daughter. We will consider hemodialysis once the patient and the patient's family decide. Overall prognosis is guarded. Thank you for allowing me to participate in you patient's care. Peña Vaughn MD
[2018-07-23] MEDS: Potassium Chloride 10 mEq ER Tab PO SCH (08:54)
[2018-07-23] MEDS: Pantoprazole 40 mg EC Tab PO SCH (08:56)
[2018-07-23] MEDS: Multivitamin Vitamin B Complex (Nephro-Vite) Tab PO SCH (08:56)
[2018-07-23 10:49] LABS: CALCIUM 8.7 mg/dL (8.4-10.2)
--- NOTE | 2018-07-23 11:44 | CP.PCM.PN ---
Subjective - Date & Time of Evaluation Date of Evaluation: 07/23/18 Time of Evaluation: 11:42 - Subjective Subjective: pt is seen and examined, follow up consult is dictated #[id number] please get heather cath for hd after consent from pt's family for hd pt agreed for hd also d/w pt's daughter agreed for hd this evening Objective - Vital Signs/Intake and Output Vital Signs (last 24 hours): Temp Pulse Resp BP Pulse Ox 97.9 F 67 18 147/64 95 07/23/18 08:03 07/23/18 08:56 07/23/18 08:03 07/23/18 08:56 07/23/18 08:03 Intake and Output: 07/23/18 07/23/18 06:59 18:59 Intake Total 840 Output Total 820 Balance 20 - Medications Medications: Current Medications Acetaminophen (Tylenol 325mg Tab) 650 mg PO Q6 PRN PRN Reason: Pain, Mild (1-3) Last Admin: 07/22/18 21:33 Dose: 650 mg Allopurinol (Zyloprim) 100 mg PO DAILY [facility] Last Admin: 07/23/18 08:55 Dose: 100 mg Amlodipine Besylate (Norvasc) 10 mg PO DAILY [facility] Last Admin: 07/23/18 08:56 Dose: 10 mg Atorvastatin Calcium (Lipitor) 10 mg PO HS [facility] Last Admin: 07/22/18 21:23 Dose: 10 mg Ergocalciferol (Drisdol 50,000 Intl Units Cap) 1 cap PO TH [facility] Last Admin: 07/18/18 05:40 Dose: 1 cap Iron Sucrose 100 mg/ Sodium (Chloride) 105 mls @ 105 mls/hr IVPB DAILY [facility] Last Admin: 07/23/18 08:57 Dose: 105 mls/hr Metoprolol Tartrate (Lopressor) 25 mg PO Q12 [facility] Last Admin: 07/23/18 08:54 Dose: 25 mg Pantoprazole Sodium (Protonix Ec Tab) 40 mg PO DAILY [facility] Last Admin: 07/23/18 08:56 Dose: 40 mg Potassium Chloride (Klor-Con 10) 10 meq PO DAILY [facility] Last Admin: 07/23/18 08:54 Dose: 10 meq Tamsulosin HCl (Flomax) 0.4 mg PO DAILY [facility] Last Admin: 07/23/18 08:55 Dose: 0.4 mg Thiamine HCl (Vitamin B1 Tab) 100 mg PO DAILY [facility] Last Admin: 07/23/18 08:56 Dose: 100 mg Trazodone HCl (Desyrel) [address] [facility] Last Admin: 07/22/18 21:23 Dose: 50 mg Vitamin B Complex/Vit C/Folic Acid (Nephro-Wilma) 1 tab PO DAILY [facility] Last Admin: 07/23/18 08:56 Dose: 1 tab - Labs Labs: 07/22/18 05:55 07/23/18 10:18 APTT 31.5 Seconds (25.6-37.1) 07/22/18 05:55
[2018-07-23] MEDS ORDERED: Lidocaine Hydrochloride 5 ML INJ ONE (13:08)
--- NOTE | 2018-07-23 13:36 | PCM.SURG1 ---
Surgeon's Initial Post Op Note - Surgeon's Notes Surgeon: María Systems Administrator: None Type of Anesthesia: Local Pre-Operative Diagnosis: RF Operative Findings: Patent right IJV Post-Operative Diagnosis: RF Operation Performed: Right IJV shiley placed. Specimen/Specimens Removed: None Estimated Blood Loss: EBL {In ML}: 1 Date of Surgery/Procedure: 07/23/18 Time of Surgery/Procedure: 13:20
[2018-07-23 16:41] LABS: HEPATITIS B SURFACE AG Negative (NEGATIVE)
[2018-07-23 16:47] LABS: HEPATITIS A IGM NEGATIVE (NEGATIVE); HEPATITIS B CORE AB NEGATIVE (NEGATIVE)
[2018-07-23 16:58] LABS: HEPATITIS C ANTIBODY NEGATIVE (NEGATIVE)
--- NOTE | 2018-07-23 18:03 | CP.PCM.PN ---
Subjective - Date & Time of Evaluation Date of Evaluation: 07/23/18 Time of Evaluation: 11:30 - Subjective Subjective: BUn and creatinine remain very elevated Discussed with Dr valiente and prob patient will need HD. Has no fever. Objective - Vital Signs/Intake and Output Vital Signs (last 24 hours): Temp Pulse Resp BP Pulse Ox 97.1 F L 55 L 17 137/65 99 07/23/18 17:00 07/23/18 17:00 07/23/18 17:00 07/23/18 17:00 07/23/18 17:00 Intake and Output: 07/23/18 07/23/18 06:59 18:59 Intake Total 840 Output Total 820 Balance 20 - Medications Medications: Current Medications Acetaminophen (Tylenol 325mg Tab) 650 mg PO Q6 PRN PRN Reason: Pain, Mild (1-3) Last Admin: 07/23/18 15:47 Dose: 650 mg Allopurinol (Zyloprim) 100 mg PO DAILY [facility] Last Admin: 07/23/18 08:55 Dose: 100 mg Amlodipine Besylate (Norvasc) 10 mg PO DAILY [facility] Last Admin: 07/23/18 08:56 Dose: 10 mg Atorvastatin Calcium (Lipitor) 10 mg PO HS [facility] Last Admin: 07/22/18 21:23 Dose: 10 mg Epoetin Tommie (Procrit) 10,000 unit SC TTS SCAR Ergocalciferol (Drisdol 50,000 Intl Units Cap) 1 cap PO TH [facility] Last Admin: 07/18/18 05:40 Dose: 1 cap Iron Sucrose 100 mg/ Sodium (Chloride) 105 mls @ 105 mls/hr IVPB DAILY [facility] Last Admin: 07/23/18 08:57 Dose: 105 mls/hr Metoprolol Tartrate (Lopressor) 25 mg PO Q12 [facility] Last Admin: 07/23/18 08:54 Dose: 25 mg Pantoprazole Sodium (Protonix Ec Tab) 40 mg PO DAILY [facility] Last Admin: 07/23/18 08:56 Dose: 40 mg Potassium Chloride (Klor-Con 10) 10 meq PO DAILY [facility] Last Admin: 07/23/18 08:54 Dose: 10 meq Tamsulosin HCl (Flomax) 0.4 mg PO DAILY [facility] Last Admin: 07/23/18 08:55 Dose: 0.4 mg Thiamine HCl (Vitamin B1 Tab) 100 mg PO DAILY [facility] Last Admin: 07/23/18 08:56 Dose: 100 mg Trazodone HCl (Desyrel) 50 mg PO HS [facility] Last Admin: 07/22/18 21:23 Dose: 50 mg Vitamin B Complex/Vit C/Folic Acid (Nephro-Wilma) 1 tab PO DAILY [facility] Last Admin: 07/23/18 08:56 Dose: 1 tab - Labs Labs: 07/22/18 05:55 07/23/18 10:18 APTT 31.5 Seconds (25.6-37.1) 07/22/18 05:55 - Head Exam Head Exam: NORMAL INSPECTION - Eye Exam Eye Exam: Normal appearance - ENT Exam ENT Exam: Mucous Membranes Moist - Respiratory Exam Respiratory Exam: Clear to Ausculation Bilateral - Cardiovascular Exam Cardiovascular Exam: REGULAR RHYTHM - GI/Abdominal Exam GI & Abdominal Exam: Normal Bowel Sounds Assessment and Plan (1) Acute on chronic renal failure Status: Acute (2) Anemia Status: Acute (3) HTN (hypertension) Status: Acute (4) Dehydration Status: Acute (5) Chronic kidney disease, stage IV (severe) Status: Chronic - Assessment and Plan (Free Text) Plan: Cont meds agree with HD cont monitor cbc cmp
--- NOTE | 2018-07-23 21:26 | PQF ---
PROVIDER RESPONSE TEXT: Acute Renal Failure, on CKD Stage 3. REVIEWER QUERY TEXT: Conflicting Documentation Clarification Please clarify if the current diagnosis is CKD Stage 3 versus ESRD -- Other, please specify H and P includes:PMH of CKD, ESRD, HTN known from prior admission, was sent from [facility] fo r acute on chronic renal failure. On previous admission, pt. received several dialysis sessions befor e renal function improved;BUN and creatinine are 127 and 3.0 on admission; GFR 21. PMH: Arthritis, CAD, HTN, Hypercholesterolemia, ESRD, CKD.Dialysis on last admission only. Assessment: Acute on Chronic Renal Failure 07/17 Renal consult includes:.1.SHABNAM on ckd-3 sec to vigorous diuresis 2. Dehydration 3. HTN 4.Anemia sec to fe deficiency start ivf 1/2 ns at 60 ml/hr hold lasix and metolazone no need start hd today, will monitor start iv fe, check stool for ob, cea, ca19-9, afp, psa bmp daily Stages are defined by the [employer] as follows: CKD Stage I GFR >= 90 ml / min per 1.73 m2 and persistent albuminuria CKD Stage 2 GFR between 60 and 89 with persistent albuminuria CKD Stage 3 GFR between 30 and 59 CKD Stage 4 GFR between 15 and 29 CKD Stage 5 GFR between <15 or End Stage Renal Disease The patient's Clinical Indicators include: -- Query created by: Chhaya Mar on 07/18/2018 10:15 AM Electronically signed by: Mason White APN 07/23/2018 9:23 PM
--- NOTE | 2018-07-24 02:21 | PN ---
DATE: 07/23/2018 FOLLOW UP RENAL CONSULTATION LOCATION: Room 416, bed 2. REQUESTED BY: Thomas Bedolla MD REASON FOR FOLLOWUP: Acute renal failure, chronic kidney disease, now for further evaluation and possible hemodialysis. HISTORY OF PRESENT ILLNESS: Mr. Michael Bailon is about a 72-year-old elderly male with a history of longstanding hypertension, hyperlipidemia, chronic kidney disease, CAD, arthritis, gout who was admitted from the correction with worsening renal function. The patient also had a history of acute renal failure, on chronic kidney disease and underwent hemodialysis about three times during his last admission. Presently, he is not in acute distress. Denies any headache or dizziness. Denies any chest pain or palpitation. The patient complains of decreased pain and swelling of the right wrist after IV steroids. PHYSICAL EXAMINATION: VITAL SIGNS: Blood pressure 147/64, pulse 67, respirations about 18, temperature 97.5, saturation 96%, height 5 feet 5 inches, weight is 160 pounds. GENERAL: Mr. Bailon is a 72-year-old elderly male, moderately built, moderately nourished, not in acute distress. HEENT: Pupils normal and reactive to light and accommodation. Conjunctivae pink. Sclerae anicteric. Tongue is moist. Trachea is midline. LUNGS: Symmetric on both sides. Bilateral breath sounds present. Clear to auscultation. CARDIOVASCULAR: [place] at the fifth intercostal space and midclavicular line. S1 and S2 audible. No murmur or gallop. ABDOMEN: Slightly protuberant, soft, tympanic. No guarding. No rigidity. No hepatosplenomegaly. CENTRAL NERVOUS SYSTEM: The patient is alert, awake, oriented x2-3. Sensory and motor system is within normal limits. EXTREMITIES: No cyanosis. No clubbing. No edema. CURRENT MEDICATIONS: Include as follows: Trazodone 50 mg p.o. at bedtime, ergocalciferol 50,000 units p.o. every weekly, Flomax 0.4 mg p.o. daily, iron sucrose 100 mg IV daily, Klor-Con 10 mEq p.o. daily, Lipitor 10 mg at bedtime, Lopressor 25 mg p.o. every 12 hours, Nephro-Wilma one tablet daily, Norvasc 10 mg daily, Procrit 10,000 units three times a week, Protonix 40 mg p.o. daily, Tylenol, thiamine 100 mg p.o. daily, and allopurinol 100 mg p.o. daily. LABORATORY DATA: Include as follows: As of 07/23/2018, sodium 137, potassium 4.1, chloride 100, CO2 of 21, BUN 144, creatinine 2.7, glucose 142 and calcium 8.7 and hepatitis C antibody IgM is negative and hepatitis B surface antigen is negative, hepatitis B core antibody IgM is negative, C antibody is negative. ASSESSMENT AND PLAN: In summary, Mr. Bailon is a 72-year-old elderly male with a history of longstanding hypertension, hyperlipidemia, chronic kidney disease, coronary artery disease, arthritis, gout and moderate to severe pulmonary hypertension, mitral valve regurgitation, was admitted with worsening renal function. 1. Acute renal failure on chronic kidney disease. 2. Acute gouty arthritis. 3. Hypertension. 4. Severe pulmonary hypertension with moderate to severe tricuspid regurgitation and moderate to severe mitral valve regurgitation. I discussed with the patient and the patient's daughter agreed for the temporary hemodialysis. We will schedule for hemodialysis after Ras[place] catheter placement today. We will continue to monitor BMP. We will follow with you. Thank you for allowing me to participate in your patient's care. Discussed with the patient's daughter on the phone and agreed for the hemodialysis this evening. Peña Vaughn MD
[2018-07-24] MEDS ORDERED: Sodium Chloride 0.9% 500 ML IV ONE (06:24)
[2018-07-24 06:25] LABS: ABG ALLEN TEST YES; ARTERIAL BLOOD GAS HCO3 19.5 mmol/L (21-28); ARTERIAL BLOOD GAS O2 SAT 99.7 % (95-98); ARTERIAL BLOOD GAS PCO2 46 mm/Hg (35-45); ARTERIAL BLOOD GAS PH 7.25 (7.35-7.45); ARTERIAL BLOOD GAS PO2 496 mm/Hg (80-100); ARTERIAL BLOOD GAS TCO2 21.6 mmol/L (22-28)
[2018-07-24 06:28] LABS: BASO % 0.1 % (0.0-2.0); EOS # 0.1 K/uL (0.0-0.7); EOS % 0.9 % (0.0-4.0); HEMOGLOBIN 8.8 g/dL (12.0-18.0); LYMPH # 2.5 K/uL (1.0-4.3); LYMPH % 18.2 % (20.0-40.0); MEAN CORPUSCULAR HEMOGLOBIN 26.3 pg (27.0-31.0); MEAN CORPUSCULAR HGB CONC 30.6 g/dL (33.0-37.0); MEAN PLATELET VOLUME 8.6 fl (7.2-11.7); MONO # 0.5 K/uL (0.0-0.8); MONO % 3.4 % (0.0-10.0); NEUT # 10.6 K/uL (1.8-7.0); NEUT % 77.4 % (50.0-75.0); RBC 3.33 Mil/uL (4.40-5.90); RED CELL DISTRIBUTION WIDTH 18.6 % (11.5-14.5); WHITE BLOOD COUNT 13.7 K/uL (4.8-10.8)
--- NOTE | 2018-07-24 06:32 | CP.PCM.PCO ---
Assessment & Plan - Assessment and Plan (Free Text) Assessment: Code blue was called. 73 yo male with hx of HTN, HLD, CAD, CKD and gout was admitted with worsening of renal function not responding to conservative management and HD cath was placed and patient was started on dialysis yesterday. This morning was found unresponsive and pulseless in cardica arrest. Initial rhythm was asystole. Highly efficient CPR was started immediately. Received multiple rounds of EPi and 2 amps of bicarb on Atropine and on Calcium Chloride. ROSC in about 30 min. Intubated during code. Post ROSC exam S1/S2, lungs clear b/l. Low BP Despite receiving 250 CC on NS during code. 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 Family informed and patient remains full code. Will transfer to ICU and will put on full vent support (14/500/5/100%) and Levophed. I spent total of 52 min of critical care time trying to stabilize this critically unstable patient excluding time spent for any procedures.
--- NOTE | 2018-07-24 06:38 | CP.PCM.PCO ---
Assessment & Plan - Assessment and Plan (Free Text) Assessment: Emergent endotracheal intubation Indication: Cardiopulmonary arrest Patient was place in sniffing position. Vocal cords easily visualized with laryngoscope. Size 7.5 ETT was seen passing through vocal cords. The cuff was seen passing beyond the cords. Stylet removed and cuff inflated. Position was confirmed with color change on calorimeter and bilateral chest sounds. ETT secured at 23 cm at the lips. CXR ordered. Patient tolerated procedure well.
[2018-07-24 06:39] LABS: INR 1.3; PARTIAL THROMBOPLASTIN TIME 31.2 Seconds (25.6-37.1)
[2018-07-24 07:35] LABS: ALB/GLOB RATIO 0.9 (1.0-2.1); ALBUMIN 2.6 g/dL (3.5-5.0); CALCIUM 9.4 mg/dL (8.4-10.2)
[2018-07-24 07:41] LABS: TROPONIN I 0.031 ng/mL (0.00-0.120)
--- NOTE | 2018-07-24 08:20 | RAD ---
Date of service: 07/24/2018 HISTORY: s/p cardiac arrest, s/p intubation COMPARISON: 07/17/2009 FINDINGS: LUNGS: Clear lungs. Interval endotracheal tube insertion tip approximately 2 cm cephalad to the nasrin PLEURA: No significant pleural effusion identified, no pneumothorax apparent. CARDIOVASCULAR: No aortic atherosclerotic calcification present. Cardiomegaly. Defibrillator device in place. No pulmonary vascular congestion. Interval placement of a central venous catheter right internal jugular vein approach tip superior vena cava. OSSEOUS STRUCTURES: No significant abnormalities. VISUALIZED UPPER ABDOMEN: Normal. OTHER FINDINGS: None. IMPRESSION: Similar cardiomegaly. Clear lungs. Interval endotracheal tube insertion tip appears satisfactory. Interval insertion right central venous catheter-tip superior vena cava.
[2018-07-24 08:24] VITALS: RESP 14; O2SAT 100
[2018-07-24] MEDS ORDERED: Calcium Chloride 1000 mg/10 ml Syringe ONE (09:00)
[2018-07-24] MEDS ORDERED: Sodium Bicarbonate 7.5% (0.9 MEQ/ML) 50ML INJ IV ONE (09:00)
--- NOTE | 2018-07-24 10:03 | CP.PCM.PN ---
Subjective - Date & Time of Evaluation Date of Evaluation: 07/24/18 Time of Evaluation: 10:01 - Subjective Subjective: pt is seen and examined, follow up is dictated #[id number] s/p hd last night with out any complications, s/p bradhycardia this am and w ent into asytole s/p code for 25-30 minutes, on vent ,on pressors, not responding to pain, no gag reflex d/w pt's son in law at bed side, prognosis is very poor Objective - Vital Signs/Intake and Output Vital Signs (last 24 hours): Temp Pulse Resp BP Pulse Ox 97.3 F L 89 14 124/58 L 100 07/24/18 08:00 07/24/18 09:34 07/24/18 08:00 07/24/18 09:34 07/24/18 08:00 Intake and Output: 07/24/18 07/24/18 06:59 18:59 Intake Total 740 Output Total 525 Balance 215 - Medications Medications: Current Medications Acetaminophen (Tylenol 325mg Tab) 650 mg PO Q6 PRN PRN Reason: Pain, Mild (1-3) Last Admin: 07/23/18 15:47 Dose: 650 mg Allopurinol (Zyloprim) 100 mg PO DAILY [facility] Last Admin: 07/23/18 08:55 Dose: 100 mg Amlodipine Besylate (Norvasc) 10 mg PO DAILY [facility] Last Admin: 07/24/18 09:34 Dose: Not Given Atorvastatin Calcium (Lipitor) 10 mg PO HS [facility] Last Admin: 07/23/18 21:59 Dose: 10 mg Epoetin Tommie (Procrit) 10,000 unit SC TTS [facility] Ergocalciferol (Drisdol 50,000 Intl Units Cap) 1 cap PO TH [facility] Last Admin: 07/18/18 05:40 Dose: 1 cap Iron Sucrose 100 mg/ Sodium (Chloride) 105 mls @ 105 mls/hr IVPB DAILY [facility] Last Admin: 07/24/18 09:59 Dose: 105 mls/hr Metoprolol Tartrate (Lopressor) 25 mg PO Q12 [facility] Last Admin: 07/23/18 22:00 Dose: 25 mg Potassium Chloride (Klor-Con 10) 10 meq PO DAILY [facility] Last Admin: 07/23/18 08:54 Dose: 10 meq Tamsulosin HCl (Flomax) 0.4 mg PO DAILY [facility] Last Admin: 07/23/18 08:55 Dose: 0.4 mg Thiamine HCl (Vitamin B1 Tab) 100 mg PO DAILY [facility] Last Admin: 07/23/18 08:56 Dose: 100 mg Trazodone HCl (Desyrel) 50 mg PO HS [facility] Last Admin: 07/23/18 21:59 Dose: 50 mg Vitamin B Complex/Vit C/Folic Acid (Nephro-Wilma) 1 tab PO DAILY [facility] Last Admin: 07/23/18 08:56 Dose: 1 tab - Labs Labs: 07/24/18 06:00 07/24/18 06:00 PT 15.0 Seconds (9.8-13.1) H 07/24/18 06:00 INR 1.3 07/24/18 06:00 APTT 31.2 Seconds (25.6-37.1) 07/24/18 06:00
--- NOTE | 2018-07-24 10:47 | CP.CCUPN ---
CCU Subjective - Physician Review Subjective (Free Text): Events overnight reviewed as well as current hospital course since admission 7 days ago: s/p Code Blue, resuscitated, now comatose on MV support and vasopressors. Breathing 14 on AC 14, SPo2 100% on 50% fiO2 reduced from 100% overnight. No vent triggering noted. Underwent 1st HD last evening and no untoward events noted. Bradycardia preceded the Code. NO FEVER spikes overnight, but has been relatively hypothermic with Ts in the 97F range. SBPs 100-130s, HR 90s sinus with PACs. Hernandez placed with approx. 100ml urine so far. On Levophed 5 mcg dose. Other vitals and I/O's reviewed. 740 ml in / 525 ml out last 12H. ROS: No other pertinent negs or positives on 10+ system review obtainable due to coma PMSFH: All other Nursing and physician documentation reviewed to date; no new pertinent info noted relevant to current medical problems. EXAM- HEENT: no icterus, no gaze preference, 4-5 mm and nonreactive, no nystagmus NECK: no JVD visible, supple, carotids equal upstroke bilat/no bruit, R IJV central line for HD CHEST: decreased BS at the bases, no wheezes audible HEART: regular, distant, S1S2, no rubs ABD: soft, no distension, no focal tenderness, no tympany, no guarding, no organomegaly, BS hypoactive. EXT: + LE edema, no mottling; no calf tenderness or palpable cords, distal pulses intact and symmetrical, no cyanosis, no mottling. NEURO: flaccid x 4 limbs, no tone. GCS= 3T. SKIN: no rashes, warm and dry LABS: WBC= 13.7 HGB= 8.8 PLTs= 415K INR 1.3 7.25/46/496 Na= 139 K= 4.7 CL= 100 HCO3= 22 BUN/Cr= 71/2.1 BS= 191 Lactate = 6.9 CXR; (my interp) ETT position OK above nasrin, No gross consolidation. EKG: none IMPRESSION / MAJOR PROBLEMS NOW: 1. S/p Code Blue- s/p Resuscitation with ROSC achieved by 30 min cayla: etiology unclear, r/o AMI 2. Anoxic Encephalopathy 3. Acute on CKD with uremia 4. Chronic disease anemia PLAN: 1. Not a candidate for therapeutic hypothermia due to prolonged resuscitation time of 30 minutes. Clinical exam today shows no brainstem activity. Consider formal Neurology eval. 2. Check EKG, Serial Trops. ECHO. Serial Lactates. 3. Try to wean Levophed. More volume expansion. 1000ml UF removed last evening from HD. 4. BUN CR levels slowly improved with IVF hydration, but deemed to require Acute WELL LOGGER with HD. 5. CT Brain if stable to move to CT suite for study, r/o other FORKLIFT SUPERVISOR event (e.g. CVA, Bleed) 6. Clarify any new Advance Directives. Notify [facility]. Time spent with this patient did not overlap with any other provider's medical or critical care time. Additionally the code selected for the services rendered in this note includes the time spent: talking to the patients family, associated physicians and reviewing hospital data/results not listed here which extended to a total of 40 minutes.
[2018-07-24 11:26] LABS: VENOUS BLOOD GAS BASE EXCESS 3.2 mmol/L (0.0-2.0); VENOUS BLOOD GAS PCO2 36 mmHg (40-60); VENOUS BLOOD GAS PO2 49 mm/Hg (30-55); VENOUS BLOOD PH 7.48 (7.32-7.43)
[2018-07-24 12:29] VITALS: TEMP 98.1
[2018-07-24 14:02] VITALS: BP 118/59; PULSE 71
[2018-07-24] MEDS ORDERED: Morphine 100 MG in Sodium Chloride 0.9% 100 ML IV SCH (15:00)
--- NOTE | 2018-07-24 17:17 | CP.PCM.PRO ---
Pronouncement of Note - Clinical Findings Physical Exam: No Response Verbal/Painful Stimuli, Absent Peripheral Puls es{Carotid & Femoral}, Absent Heart & Breath Sounds, No Pupillary Light Reflex, No Corneal Reflex, Pupils Fixed & Dilated, Absence of Vital Signs - Pronouncement Time Time of Pronouncement of : 15:46 - Notifications Pronouncement Notifications: Family Notified, Atending Notified Glass Cut Off Supervisor Notified: No - Autopsy Autopsy Requested: No - [place] [id number]
--- NOTE | 2018-07-25 02:52 | PN ---
DATE: 07/24/2018 FOLLOWUP RENAL CONSULTATION LOCATION: The patient is located in room 435, bed 1. REQUESTED BY: Thomas Bedolla MD REASON FOR FOLLOWUP: Acute renal failure, chronic kidney disease, status post cardiac arrest. SUBJECTIVE: Mr. Bailon is a 72-year-old elderly male with a past medical history significant for arthritis, coronary artery disease, hypertension, hyperlipidemia, chronic kidney disease, status post acute renal failure, was on hemodialysis about a month ago about three times. Subsequently, the patient was transferred to rehab, and the patient was transferred back to [facility] for worsening renal function and also developed acute gouty arthritis with hyperuricemia. The patient was on metolazone and torsemide in the long term. The patient was initially started on IV fluids without much significant improvement and discussed with the patient and the patient's daughter, agreed for temporary hemodialysis. The patient underwent hemodialysis yesterday evening after telephone consent. The patient had hemodialysis about 2 to 2.5 hours without any complications, post-dialysis was very stable. The patient was also stable overnight, and suddenly, the patient went into bradycardia, hypotension, and became asystolic requiring resuscitation after 20 to 25 minutes. The patient is not responding to deep pain_ and the patient was intubated and transferred to ICU. The patient is not responding to verbal stimuli or deep painful stimuli. The patient does not have any gag reflex; and also pupils dilated, fixed about 5 to 6 mm, not reacting to light. PHYSICAL EXAMINATION: VITAL SIGNS: As follow: Blood pressure 128/55, pulse 92, respirations 14, saturation 100%, temperature 97.3. HEENT: Pupils are dilated, bilateral and fixed, not responding to light, on ventilator. No thyroid enlargement. LUNGS: Symmetric on both sides. Bilateral breath sounds present. Clear to auscultation. CARDIOVASCULAR SYSTEMS: [place] at the fifth intercostal space and midclavicular line. S1 and S2 audible. No murmur or gallop. ABDOMEN: Normal in appearance, soft, tympanitic. No guarding, no rigidity. No hepatosplenomegaly. CENTRAL NERVOUS SYSTEM: The patient is on ventilator, not responding to deep painful stimuli. EXTREMITIES: No cyanosis, no clubbing, and no edema. CURRENT MEDICATIONS: Include as follows: Torsemide on hold, ergocalciferol 50,000 units one capsule weekly, Flomax on hold, Venofer 100 mg daily, Klor-Con on hold, Lipitor on hold, metoprolol on hold, Nephro-Wilma on hold, thiamine on hold, allopurinol on hold, Norvasc 10 mg p.o. daily, Procrit 10,000 units three times a week. LABORATORY DATA: Include as follows: As of 07/24/2018 at 6 a.m., sodium 139, potassium 4.7, chloride 100, CO2 of 22, BUN 71, creatinine 2.1, glucose 191, calcium 9.4, phosphorus 6.4, magnesium 2.1. Total bili 0.3, AST 52, ALT 46, alkaline phosphatase 187, troponin 0.03, total protein 5.7, albumin is 2.6. WBC 13.7, hemoglobin 8.3, hematocrit is 28.6, and platelets 415. PT 15, PTT 31.2. His ABG initial one pH 7.25, pCO2 of 46, pO2 of 496, bicarb 19.5, and saturation 99.7. Sodium 137, chloride 111, glucose 191, lactic acid 6.9. Vent setting, AC 14, FiO2 100%, tidal volume 500, PEEP of 5 at 6.22 a.m. His repeat ABG at 8:43 a.m., pH 7.48, pCO2 of 36, bicarb is 27.3, saturation 91%, lactic acid 1.7, FiO2 50%, PEEP of 5, AC 14, tidal volume 500. Chest x-ray as of 07/24/2018; similar cardiomegaly, clear lungs, interval endotracheal tube insertion tip appears satisfactory, interval insertion of right central venous catheter tip, superior vena cava. ASSESSMENT AND PLAN: In summary, Mr. Bailon is a 72-year-old elderly male with a history of hypertension, coronary artery disease, hyperlipidemia, arthritis, chronic kidney disease, acute renal failure, status post hemodialysis about a month ago x3, now admitted with worsening renal function and not responding to intravenous fluids, agreed for the temporary hemodialysis for the patient, and underwent temporary hemodialysis yesterday, first treatment 2-1/2 hours without any complications during dialysis. The patient became suddenly bradycardic this morning and went into asystole requiring resuscitation and intubated on ventilator, not responding to deep painful stimuli. No gag reflex and not breathing over the vent. 1. Acute renal failure, on chronic kidney disease. 2. Status post hemodialysis yesterday without any hemodynamical significance or any changes, tolerated very well. 3. Stats post bradycardia, asystole, and cardiac arrest earlier this morning. Status post resuscitation, on ventilator. Continue vent support and continue intravenous fluids. Continue pressors as needed. 4. Cannot rule out anoxic encephalopathy. Oral prognosis is very poor. Discussed with the patient's son-in-law at bedside who is able to understand and discussed in detail regarding the poor prognosis. Thank you for allowing me to participate in your patient's care. Peña Vaughn MD MTDD
[2018-07-25] MEDS ORDERED: EPOETIN ALFA 10,000 UNIT/ML ML SC SCH (09:00)
--- NOTE | 2018-07-25 14:02 | VASCULAR ---
Ultrasound and fluoroscopically guided insertion of right internal jugular vein non tunneled dialysis catheter History: 72-year-old male requiring non tunneled dialysis catheter for acute renal failure. Comparison: None. Anesthesia: Local lidocaine. Procedure findings: The procedure was explained to the patient with relative risks and benefits. The patient understood the procedure and provided written informed consent. The patient was positioned supine on the angiographic table. Continuous physiologic monitoring was provided by the interventional radiology nurse. The right neck region was prepped and draped in the usual sterile technique. Under direct ultrasound guidance, the right internal jugular vein was accessed using a 21 gauge micropuncture needle. A 0.018 inch wire was introduced through the needle into the SVC. The micropuncture needle was then exchanged for a 4 [place] transition catheter. A stiff guidewire was introduced through the transition catheter into the IVC. The transition catheter was then removed and serial fascial dilators were introduced into the right neck extending up to the venotomy site. Subsequently, a 14 [place], 15 centimeter dual lumen non tunneled dialysis catheter was introduced into the right internal jugular vein under fluoroscopic guidance. The catheter flushed with normal saline and locked with heparin. The patient tolerated the procedure well without any incident. The patient was transferred from the interventional Radiology department in stable condition. Impression: Successful introduction of a right internal jugular vein non tunneled dialysis catheter.
--- NOTE | 2018-08-05 01:07 | CP.PCM.PN ---
Subjective - Date & Time of Evaluation Date of Evaluation: 07/24/18 Time of Evaluation: 07:45 - Subjective Subjective: Pt seen and assessed at bedside. Currently intubated and non-responsive to verbal stimuli. Pt is s/p cardiac arrest + code blue, where he was found to be unresponsive. ACLS protocol was initiated, and the pt was transferred to ICU. Of note, pt had dialysis earlier in the day. Review of Systems - Review of Systems Systems not reviewed;Unavailable: Intubated Objective - Vital Signs/Intake and Output Vital Signs (last 24 hours): Temp Pulse Resp BP Pulse Ox 98.1 F 71 14 118/59 L 100 07/24/18 12:00 07/24/18 14:00 07/24/18 14:00 07/24/18 14:00 07/24/18 14:00 - Labs Labs: 07/24/18 06:00 07/24/18 06:00 PT 15.0 Seconds (9.8-13.1) H 07/24/18 06:00 INR 1.3 07/24/18 06:00 APTT 31.2 Seconds (25.6-37.1) 07/24/18 06:00 - Constitutional Appears: Older Than Stated Age, Chronically Ill - Head Exam Head Exam: ATRAUMATIC, NORMAL INSPECTION, NORMOCEPHALIC - Eye Exam Eye Exam: Normal appearance - ENT Exam ENT Exam: Mucous Membranes Dry - Neck Exam Neck Exam: Normal Inspection - Respiratory Exam Respiratory Exam: Decreased Breath Sounds, Rhonchi - Cardiovascular Exam Cardiovascular Exam: REGULAR RHYTHM, +S1, +S2 - GI/Abdominal Exam GI & Abdominal Exam: Soft, Normal Bowel Sounds - Extremities Exam Extremities Exam: Normal Capillary Refill, Normal Inspection - Back Exam Back Exam: NORMAL INSPECTION - Neurological Exam Additional comments: unresponsive to verbal stimuli. - Skin Skin Exam: Dry, Normal Color, Warm Assessment and Plan (1) Acute on chronic renal failure Assessment & Plan: 1.) Acute on Chronic Renal failure -underwent 1st hemodialysis this admission. -consults input appreciated. -monitor renal studies. -S/P code blue- Pt mechanically ventilated; assess respiratory status with breathing trials. -Prognosis is very poor, plan of care and prognosis discussed with family. -Continue current tx. Status: Acute
--- NOTE | 2018-08-08 15:55 | PQF ---
PROVIDER RESPONSE TEXT: Agree with nephro regarding anemia being secondary to iron deficiency and slow GI bleed. However, we are clinically unable to determine the etiology of the GI bleed itself, at this time. REVIEWER QUERY TEXT: Clarification of Clinical Diagnostic Findings Please clarify the etiology of the GI Bleed if in agreement with the diagnosis and if known: OR: Disagree OR: Other explanation of clinical findings 07/19 Renal progress note: includes: Anemia, sec to renal failure and also iron def and also slow GI bleed The patient's Clinical Indicators include: --- Query created by: Chhaya Mar on 07/24/2018 8:02 AM Electronically signed by: Mason White APN 08/08/2018 3:52 PM
--- NOTE | 2018-08-14 21:17 | PQF ---
PROVIDER RESPONSE TEXT: SHABNAM on ckd-4, most likely sec to ATN, can't r/o sec to vigarous diuresis REVIEWER QUERY TEXT: Kidney Failure, Acute - Associated Conditions Acute Kidney Failure is documented in the Medical Record. Please specify the associated condition (i ncluding probable or suspected) Such as: -- Acute Tubular Necrosis -- Cortical Necrosis -- Papillary or Medullary Necrosis -- Traumatic Anuria -- None are likely contributors -- Other, please specify The patient's Clinical Indicators include: 07/21 PN documented "status post kidney biopsy consistent with mild acute tubular necrosis." Query created by: Lacey Snowden on 07/25/2018 8:40 AM Electronically signed by: Peña Vaughn MD 08/14/2018 9:14 PM
== END 2018-07-24 22:15 | DRG 682 ==
LOC: H.ER 12:33 → H.ERHOLD 15:06 → H.TEL 18:10 → H.ICU/CCU 07-24 06:25
PROVIDERS: ADMIT Family Medicine; ATTEND Family Medicine
PROC: 5A1D70Z Performance of Urinary Filtration, Intermittent, Less than 6 Hours Per Day (ICD-10-PCS; 2018-07-23)
PROC: 05HM33Z Insertion of Infusion Device into Right Internal Jugular Vein, Percutaneous Approach (ICD-10-PCS; 2018-07-23)
PROC: 5A1935Z Respiratory Ventilation, Less than 24 Consecutive Hours (ICD-10-PCS; principal; 2018-07-24)
PROC: 0BH17EZ Insertion of Endotracheal Airway into Trachea, Via Natural or Artificial Opening (ICD-10-PCS; 2018-07-24)
DX: N17.0 Acute kidney failure with tubular necrosis (principal); R40.20 Unspecified coma; K92.2 Gastrointestinal hemorrhage, unspecified; G93.1 Anoxic brain damage, not elsewhere classified; N17.9 Acute kidney failure, unspecified; I46.9 Cardiac arrest, cause unspecified; E86.0 Dehydration; D63.1 Anemia in chronic kidney disease; Z99.2 Dependence on renal dialysis; I27.20 Pulmonary hypertension, unspecified; I25.10 Atherosclerotic heart disease of native coronary artery without angina pectoris; E78.00 Pure hypercholesterolemia, unspecified; M19.90 Unspecified osteoarthritis, unspecified site; E78.5 Hyperlipidemia, unspecified; Z87.891 Personal history of nicotine dependence; N40.0 Benign prostatic hyperplasia without lower urinary tract symptoms; M10.9 Gout, unspecified; E87.70 Fluid overload, unspecified; I12.9 Hypertensive chronic kidney disease with stage 1 through stage 4 chronic kidney disease, or unspecified chronic kidney disease; N18.4 Chronic kidney disease, stage 4 (severe); D50.0 Iron deficiency anemia secondary to blood loss (chronic); I08.3 Combined rheumatic disorders of mitral, aortic and tricuspid valves; E79.0 Hyperuricemia without signs of inflammatory arthritis and tophaceous disease; T50.2X5A Adverse effect of carbonic-anhydrase inhibitors, benzothiadiazides and other diuretics, initial encounter